=== PATIENT | male | born 1985 | race Caucasian/White ===

== ENCOUNTER → 2025-08-21 | Outpatient (CLI) | payer BC, SELFPAY ==
[2025-08-21 18:20] LABS: AST(SGOT) 396 U/L (<=37); Alanine Aminotransfer ALT/SGPT 370 U/L (<=46); Albumin, Serum 4.2 g/dL (3.5-5.0); Alkaline Phosphatase 121 U/L (40-129); Bilirubin, Direct 0.40 mg/dL (0.00-0.30); Globulin 3.9 g/dL (2.2-4.2)
[2025-08-25 21:07] LABS: HCV Quant. RNA PCR 1630000 IU/mL (.)
== END | disposition home or self-care (01) ==
LOC: MTLAB 15:44
PROVIDERS: PCP Internal Medicine; Referring Provider Internal Medicine Gastroenterology; Visit Provider Internal Medicine Gastroenterology
DX: B19.20 Unspecified viral hepatitis C without hepatic coma (principal)
CPT/HCPCS: 36415; 80076; 87522; 87902

== ENCOUNTER → 2025-08-31 | Outpatient (CLI) | payer BC, SELFPAY ==
--- OUTSIDE RECORDS SUMMARY | 2025-08-31 18:17 | XMS RPT_ITS | CCD ---
Author Organization [facility] Care Team Providers Care Veneer Drier Tailer Name Role Phone PHYSICIAN, NONE Primary Care Physician UnavailAmanda Canseco Unavailable Unavailable JOSHUA ROMERO, MACO Primary Care Physician [phone] JOSHUA ROMERO, MACO Attending Uday LEWIS MD, [facility] Primary Care Unavailshad NAILS MD, DR SANTILLAN Attending Uday LEWIS MD, [facility] Primary Care UnavailNIKOS Govea DO Attending Unavailable JOSHUA ROMERO, [facility] Primary Care Unavailshad LEWIS MD, YOTHOM Attending Unavailshad LEWIS MD, [facility] Primary Care Unavailabl e Unavailable Primary Care Provider UnavailAllyson Shelley Attending Unavailable Allyson Leary Attending Unavailable SHEELA ROMERO, KANWAL A Primary Care Unavailable SHEELA ROMERO, KANWAL Owen Attending Unavailable [facility], [facility] Uday LEWIS MD, YOGAVINA Attending Uday LEWIS MD, [facility] Primary Care Unavailshad LEARY MD, DR ALLYSON Galvez Attending Jhoan LEWIS MD, YOSCA Primary Care Unavailshad LEWIS MD, YOTHOM Attending Uday LEARY MD, DR ALLYSON Galvez Attending Jhoan LEWIS MD, YOSCA Primary Care Unavailabl e KADE PANCHO PETTIT Attending Britt [facility], [facility] Primary Care Unavailshad COKER MD, KANWAL A Primary Care Physician LANLUIS A PETTIT, RHONDA R Attending Karl COKER MD, EDWARD A Primary Care Unavailable SHEELA ROMERO, EDWARD A Primary Care Unavailable RHONDA THORNTON Attending DARBY Alcantara DO Attending [facility] Unavailshad LEWIS MD, THOM Primary Care Unavailshad RAMOS MD, DR CARLOS Faith Attending Jhoan COKER MD, EDWARD A Primary Care Unavailable SHEELA ROMERO, KANWAL A Attending Unavailable RHONDA THORNTON Attending Karl COKER MD, EDWARD A Primary Care Unavailable Allergies Allergy Classification Reported Allergen(s) Allergy Type Date of Onset Reaction(s) Facility (7 sources) turkey allergenic extract Drug Allergy [facility] (7 sources) chicken Food allergy [facility] (4 sources) Losartan; Translations: [losartan] Drug Allergy feeling throat closing [facility] Medications Current Medications Medication Drug Class(es) Dates Sig (Normalized) Sig (Original) albuterol MDI (90 mcg/inh) CFC free inhalation aerosol (4 sources) Start: 03-16-2025 End: 07-14-2025 take 1 puff(s) by inhalation every four hours as needed for wheezing albuterol MDI (90 mcg/inh) CFC free inhalation aerosol 1 puff(s), Inhalation, q4h, PRN as needed for wheezing, # 18 gram(s), 3 Refill(s), Pharmacy: [place] [address], Asthma, 189.2, cm, 03/15/25 15:10:00 EDT, Height, kg, 03/15/25 15:10:00 EDT, Dosing Weight Start Date: 03/16/25 Stop Date: 07/14/25 Status: Ordered Medication Dispense Status: Completed Quantity: 18.0 Unit: g Total Allowed Fills: 4 Fills Dispensed: 0 Indications: Unspecified asthma, uncomplicated; Start: 01-12-2024 End: 02-11-2024 take 1 puff(s) by inhalation every four hours as needed for wheezing albuterol MDI (90 mcg/inh) CFC free inhalation aerosol 1 puff(s), Inhalation, q4h, PRN as needed for wheezing, # 18 gram(s), 0 Refill(s), [facility]: [facility], Asthma, 190, cm, 01/12/24 11:03:00 EDT, Height, kg, 01/12/24 11:03:00 EDT, Dosing Weight Start Date: 01/12/24 Stop Date: 02/11/24 Status: Ordered amLODIPine 5 mg oral tablet (1 source) Dihydropyridine Calcium Channel Nash Start: 01-04-2024 amLODIPine 5 mg oral tablet Dose : 5 mg = 1 tab(s), Oral, qDay, # 30 tab(s), 0 Refill(s) Start Date: 01/04/24 Status: Ordered amoxicillin 875 mg / clavulanate 125 mg oral tablet (1 source) Penicillin-class Antibacterial Start: 09-30-2022 End: 10-07-2022 take 1 tablet by mouth every twelve hours amoxicillin-clavu lanate 875 mg-125 mg oral tablet 1 tab(s), Oral, q12h, X 7 day(s), # 14 tab(s), 0 Refill(s), 10/07/22 11:47:00 EST, Sinusitis Dentalgia, 104 Start Date: 09/30/22 Stop Date: 10/07/22 Status: Ordered buprenorphine 8 mg / naloxone 2 mg sublingual film (5 sources) Partial Opioid Agonist, Opioid Antagonist Start: 04-21-2023 take 1 dose under the tongue once daily buprenorphine-nal oxone 8 mg-2 mg sublingual film Dose = 1 EA, Sublingual, qDay, # 30 EA, 0 Refill(s), 113.6 Start Date: 04/21/23 Status: Ordered Medication Dispense Status: Completed Quantity: 30.0 Unit: EA Total Allowed Fills: 1 Fills Dispensed: 0 cloNIDine hydrochloride 0.1 mg oral tablet (3 sources) Central alpha-2 Adrenergic Agonist Start: 03-06-2025 cloNIDine 0.1 mg oral tablet Dose : 0.1 mg = 1 tab(s), Oral, TID, # 90 tab(s), 5 Refill(s), [facility]acy: [facility], Hypertension, 190.5, cm, 01/26/25 15:07:00 EDT, Height, kg, 01/26/25 15:07:00 EDT, Dosing Weight Start Date: 03/06/25 Status: Ordered Medication Dispense Status: Completed Quantity: 90.0 Unit: tab(s) Total Allowed Fills: 6 Fills Dispensed: 0 Indications: Essential (primary) hypertension; doxycycline hyclate 100 mg oral capsule (1 source) Tetracycline-class Drug Start: 04-06-2023 End: 04-13-2023 doxycycline hyclate 100 mg oral capsule Dose : 100 mg = 1 cap(s), Oral, BID, X 7 day(s), # 14 cap(s), 0 Refill(s), 04/13/23 18:50:00 EDT, 113.6 Start Date: 04/06/23 Stop Date: 04/13/23 Status: Ordered esomeprazole 40 mg delayed release oral capsule (6 sources) Proton Pump Inhibitor Start: 03-15-2025 take 1 capsule by mouth once daily esomeprazole 40 mg oral delayed release capsule Dose : 40 mg = 1 cap(s), Oral, qDayAC, pt. states he takes anywhere between 80- 100mg some days, # 90 cap(s), 3 Refill(s), Pharmacy: [facility] , Heartburn, 189.2, cm, 03/15/25 15:10:00 EDT, Height, kg, 03/15/25 15:10:00 EDT, Dosing Weight Start Date: 03/15/25 Status: Ordered Medication Dispense Status: Completed Quantity: 90.0 Unit: cap(s) Total Allowed Fills: 4 Fills Dispensed: 0 Indications: Heartburn; Start: 03-15-2025 OTC NEXIUM 40m g OTC NEXIUM 40mg, takes 1-2 as needed, 0 Refill(s), 101.3 Start Date: 03/15/25 Status: Ordered Medication Dispense Status: Completed Total Allowed Fills: 1 Fills Dispensed: 0 gabapentin 300 mg oral capsule (2 sources) Anti-epileptic Agent Start: 05-01-2018 gabapentin 300 mg oral capsule Dose : 300 mg = 1 cap(s), Oral, TID, # 270 cap(s), 0 Refill(s) Start Date: 05/01/18 Status: Ordered hydroCHLOROthiazide 25 mg oral tablet (4 sources) Thiazide Diuretic Start: 03-17-2025 hydroCHLOROthiazide 25 mg oral tablet Dose : 25 mg = 1 tab(s), Oral, qDay, # 90 tab(s), 3 Refill(s), Pharmacy: [place] [address], 189.2, cm, 03/15/25 15:10:00 EDT, Height, kg, 03/15/25 15:10:00 EDT, Dosing Weight Start Date: 03/17/25 Status: Ordered Medication Dispense Status: Completed Quantity: 90.0 Unit: tab(s) Total Allowed Fills: 4 Fills Dispensed: 0 Start: 02-26-2024 hydroCHLOROthi azide 25 mg oral tablet Dose : 25 mg = 1 tab(s), Oral, qDay, # 90 tab(s), 3 Refill(s), Pharmacy: [place] [address], 190, cm, 01/26/24 12:59:00 EDT, Height, kg, 01/26/24 12:59:00 EDT, Dosing Weight Start Date: 02/26/24 Status: Ordered meloxicam 7.5 mg oral tablet (1 source) Nonsteroidal Anti-inflammatory Drug Start: 05-05-2023 meloxicam 7.5 mg oral tablet Dose : 7.5 mg = 1 tab(s), Oral, qDay, # 30 tab(s), 0 Refill(s), Pharmacy: [place] [address], Chronic knee pain, 190, cm, 05/05/23 10:29:00 EDT, Height, kg, 05/05/23 10:29:00 EDT, Dosing Weight Start Date: 05/05/23 Status: Ordered nystatin 100 unt/mg topical powder (1 source) Polyene Antifungal Start: 04-06-2023 End: 04-13-2023 nystatin 100,000 units/g topical powder Apply 1 ulisses, Topical, BID, X 7 day(s), # 60 gram(s), 0 Refill(s), Powder, 113.6 Start Date: 04/06/23 Stop Date: 04/13/23 Status: Ordered permethrin 10 mg/ml medicated shampoo (2 sources) Pyrethroid Start: 04-07-2013 permethrin 1% topical lotion See Instructions, # 1 EA, 0 Refill(s) Start Date: 04/07/13 Status: Ordered Zofran ODT 4 mg oral tablet, disintegrating (2 sources) Start: 05-01-2018 Zofran ODT 4 m g oral tablet, disintegrating Dose : 4 mg = 1 tab(s), Oral, q6hr, # 6 tab(s), 0 Refill(s) Start Date: 05/01/18 Status: Ordered Completed/Discontinued Medications Medication Drug Class(es) Dates Sig (Normalized) Sig (Original) dicyclomine hydrochloride 10 mg oral capsule (2 sources) Anticholinergic Start: 05-01-2018 End: 05-08-2018 dicyclomine 10 mg oral capsule Dose : 10 mg = 1 cap(s), Oral, QID, # 28 cap(s), 0 Refill(s) Start Date: 05/01/18 Stop Date: 05/08/18 Status: Ordered Labetalol (1 source) beta-Adrenergic Nash Start: 01-04-2024 End: 01-04-2024 labetalol Start: 01/04/24 3:00:00 PM EDT, Dose = 10 mg, = 2 mL, IV Push, Once, Stop: 01/04/24 3:19:05 PM EDT, 0, 01/04/24 14:58:00 EDT Start Date: 01/04/24 Stop Date: 01/04/24 Status: Completed sucralfate 1000 mg oral tablet (1 source) Aluminum Complex Start: 06-12-2025 Carafate 1 g oral tablet Dose : 1 gram(s) = 1 tab(s), Oral, BID, # 180 tab(s), 2 Refill(s), Pharmacy: [place] [address], Gastritis, 189.2, cm, 06/12/25 15:02:00 EDT, Height, kg, 06/12/25 15:02:00 EDT, Dosing Weight Start Date: 06/12/25 Status: Ordered Medication Dispense Status: Completed Quantity: 180.0 Unit: tab(s) Total Allowed Fills: 3 Fills Dispensed: 0 Indications: Gastritis, unspecified, without bleeding; Problems Active Problems Problem Classification Problem Date Documented Date Episodic/Chronic Abdominal pain (3 sources) Epigastric pain 03-15-2025 Episodic Administrative/social admission (1 source) Administrative reason for encounter; Translations: [Encounter for other administrative examinations] Episodic Alcohol-related disorders (4 sources) Alcoholism 01-12-2024 Chronic Anxiety disorders (1 source) Anxiety disorder; Translations: [Anxiety disorder, unspecified] Onset: 08-18-2024 Chronic Asthma (4 sources) Asthma 01-12-2024 Chronic Cardiac dysrhythmias (1 source) Palpitations; Translations: [Palpitations] Onset: 08-18-2024 Episodic Disorders of teeth and jaw (1 source) Disorder of teeth AND/OR supporting structures; Translations: [Other specified disorders of teeth and supporting structures] Onset: 09-30-2022 Episodic Essential hypertension (5 sources) Essential hypertension; Translations: [Essential (primary) hypertension] Onset: 01-04-2024 Chronic Fluid and electrolyte disorders (1 source) Hypokalemia; Translations: [Hypokalemia] Onset: 08-18-2024 Episodic Hepatitis (1 source) Chronic viral hepatitis C; Translations: [Chronic viral hepatitis C] Onset: 08-03-2024 Chronic Hepatitis (9 sources) Viral hepatitis C; Translations: [Unspecified viral hepatitis C without hepatic coma] Onset: 04-21-2023 04-21-2023 Episodic Malaise and fatigue (1 source) Fatigue; Translations: [Other fatigue] Episodic Nonspecific chest pain (6 sources) Chest pain; Translations: [Chest pain, unspecified] Onset: 01-04-2024 Episodic Osteoarthritis (7 sources) Arthritis; Translations: [Unspecified osteoarthritis, unspecified site] Onset: 04-21-2023 04-21-2023 Chronic Other circulatory disease (2 sources) Elevated blood pressure 05-05-2023 Episodic Other connective tissue disease (3 sources) Plantar fasciitis of right foot 03-15-2025 Episodic Other nutritional; endocrine; and metabolic disorders (1 source) Hypomagnesemia; Translations: [Hypomagnesemia] Onset: 08-18-2024 Chronic Other nutritional; endocrine; and metabolic disorders (1 source) Obesity caused by energy imbalance 01-12-2024 Chronic Other skin disorders (5 sources) Eruption 04-21-2023 Episodic Other upper respiratory disease (3 sources) Breath smells unpleasant 05-29-2025 Episodic Other upper respiratory infections (1 source) Chronic sinusitis; Translations: [Chronic sinusitis, unspecified] Onset: 09-30-2022 Chronic Residual codes; unclassified (5 sources) Chronic back pain 05-05-2023 Episodic Residual codes; unclassified (5 sources) Chronic pain 04-21-2023 Episodic Residual codes; unclassified (1 source) Current drinker; Translations: [Alcohol use, unspecified, uncomplicated] Episodic Spondylosis; intervertebral disc disorders; other back problems (4 sources) Degeneration of lumbar intervertebral disc 06-28-2024 Chronic Substance-related disorders (11 sources) History of drug abuse; Translations: [Tobacco dependence syndrome] 04-21-2023 Chronic Past or Other Problems Problem Classification Problem Date Documented Da te Episodic/Chronic Diabetes mellitus without complication (2 sources) Hyperglycemia, unspecified; Translations: [Hyperglycemia, unspecified] Onset: 04-21-2023 Episodic Other screening for suspected conditions (not mental disorders or infectious disease) (4 sources) Encounter for screening for other suspected endocrine disorder; Translations: [Encounter for screening for lipoid disorders] Onset: 04-21-2023 Episodic Results Test Name Value Interpretation Reference Range Facility US ELASTOGRAPHY LIVER ONLYon 06-23-2025 US ELASTOGRAPHY LIVER ONLY ORIGINAL EXAMINATION: Hepatic elastography TECHNIQUE: 2D Shear Wave Elastography of the liver was performed in the right lobe. COMPARISON: 06/16/2025 FINDINGS: Diffusely increased hepatic echogenicity with decreased through transmission. No ascites. 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 Shear Wave Liver Elastography-liver fibrosis staging Median Velocity: Recommendation: 1.35-1.66 m/s (5.48 kPa - 8.29 kPa) Normal to mild risk of clinically significant liver fibrosis : METAVIR Stage F1 1.66-1.77 m/s (8.29 kPa - 9.40 kPa) [id number] risk of clinically significant liver fibrosis. (METAVIR Stage F2) 1.77-1.99 m/s (9.40 kPa - 11.9 kPa) Moderate to severe risk of clinically significant liver fibrosis (METAVIR Stage F3) > 1.99 m/s (> 11.9 kPa) Advanced Fibrosis and/or Cirrhosis: (METAVIR Stage F4) Interpreted by: Manuela Shea Preliminary Report By: Manuela Shea Electronically signed By Manuela Shea Dictated Date: 06/23/2025 4:53:53 PM Prelim Date: 06/23/2025 4:54:45 PM Sign Date: 06/23/2025 4:54:45 PM Ordering Provider: KANWAL COKER RP Normal [facility] US ABDOMEN COMPLETEon 2024 US ABDOMEN COMPLETE ORIGINAL EXAMINATION: COMPLETE ABDOMINAL ULTRASOUND06/16/2025 6:42 pm ULTRASOUND ABDOMEN COMPLETE COMPARISON: Ultrasound 03/23/2020 TECHNIQUE: This report is based on interpretation of permanently recorded ultrasound images. HISTORY: ORDERING SYSTEM PROVIDED HISTORY: Reason for Exam: ELEVATED LFT, TRANSAMINITIS, HISTORY OF HEPATITIS C, FINDINGS: Liver: . The visualized liver is mildly heterogeneous and coarsened with increased echogenicity. No suspicious focal lesion is seen and there is no obvious nodularity of the visualized liver margins. There is antegrade blood flow in the main portal vein. Moderate masking of the portal triads also. Bile ducts: There is no intrahepatic biliary duct dilatation. The common duct 6 mm at the miky hepatis. Gallbladder: The gallbladder is distended satisfactorily without calculi, wall thickening, pericholecystic edema or tenderness. Pancreas: The visualized pancreas shows no focal lesion or mass but some portions are obscured by bowel gas artifacts. . No free fluid is seen in the abdomen. Spleen: The spleen is plump and may be mildly enlarged 12.1 cm in maximum dimension without any focal lesions.. Kidneys: Limited survey images of the kidneys show normal cortical thickness and echogenicity and no pelvocaliectasis. . Visualized aorta: Normal. Some portions are obscured by artifacts. Visualized IVC: Normal IMPRESSION: Hepatic steatosis or other diffuse hepatocellular disease. Plump spleen, borderline enlargement not excluded. Interpreted by: Isrrael Watts MD Preliminary Report By: Isrrael Watts MD Electronically signed By Isrrael Watts MD Dictated Date: 06/19/2025 12:00:10 PM Prelim Date: 06/19/2025 12:02:11 PM Sign Date: 06/19/2025 12:02:11 PM Ordering Provider: RHONDA MONTENEGRO RP [facility] .GFRon 06-10-2025 Estimated Glomerular Filtration Rate 117 ml/min/1.73sqm [facility] Comment on above: Result Comment: Stages of Chronic Kidney Disease (CKD) Stage Description eGFR(ml/min/1.73 sq.m.) CKD 1 Normal kidney function or >=90 normal kindney function with possible kidney damage (ex. Proteinuria) CKD 2 Kidney damage with mild loss 60-89 of kidney function CKD 3a Mild to moderate loss of kidney 45-59 function CKD 3b Moderate to severe loss of 30-44 of kindey function CKD 4 Severe loss of kidney function 15-29 CKD 5 Kidney failure <15 Note: (go live 2024) the eGFR calculation was updated to the 2020 CKD-EPI creatinine equation without a race factor to calculate the eGFR results. Performed By: #### G , CMP #### [address] [facility] 06-10-2025 Albumin Level 3.9 G/dL Normal 3.2-4.8 [facility] Comment on above: Performed By: #### G , CMP #### [place] [id number] Albumin/Globulin [Mass ratio] 1.1 {ratio} Normal 0.9-1.6 [facility] Comment on above: Performed By: #### G , CMP #### [address] [address] ALP [Catalytic activity/Vol] 134 U/L High 38-126 [facility] Comment on above: Performed By: #### G , CMP #### [address] [address] ALT [Catalytic activity/Vol] 473 U/L High 12-55 [facility] Comment on above: Performed By: #### G , CMP #### [address] [address] AST [Catalytic activity/Vol] 342 U/L High 8-34 [facility] Comment on above: Performed By: #### G , CMP #### [address] [address] Bili Total 0.30 mg/dL Normal 0.20-1.20 [facility] Comment on above: Result Comment: Use of this assay is not recommended for patients undergoing treatment with eltrombopag due to the potential for falsely elevated results. Performed By: #### G FR, CMP #### [place] [id number] BUN/Creatinine Ratio 11.1 ratio Normal 10.0-22.0 [facility] Comment on above: Performed By: #### G FR, CMP #### [place] [id number] Calcium [Mass/Vol] 9.4 mg/dL Normal 8.7-10.4 [facility] Comment on above: Performed By: #### G FR, CMP #### [place] [id number] Chloride [Moles/Vol] 98 mmol/L Normal 98-110 [facility] Comment on above: Performed By: #### G FR, CMP #### [place] [id number] CO2 [Moles/Vol] 27 mmol/L Normal 22-32 [facility] Comment on above: Performed By: #### G FR, CMP #### [place] [id number] Creatinine [Mass/Vol] 0.72 mg/dL Normal 0.60-1.40 [facility] Comment on above: Result Comment: Test ing performed on MatchMate.Me analyzer using enzymatic creatinine methodology. Performed By: #### G FR, CMP #### [place] [id number] Electrolyte Balance 13.0 mEq/L Normal 4.0-15.0 [facility] Comment on above: Performed By: #### G FR, CMP #### [address] [address] Globulin 3.7 G/dL Normal 2.5-4.2 [facility] Comment on above: Performed By: #### G FR, CMP #### [place] [id number] Glucose [Mass/Vol] 177 mg/dL High 70-110 [facility] Comment on above: Performed By: #### G FR, CMP #### [facility] [address] [place], [place] [address] Potassium [Moles/Vol] 4.2 mmol/L Normal 3.5-5.0 [facility] Comment on above: Performed By: #### G , CMP #### [facility] [address] [place] [address] Sodium [Moles/Vol] 138 mmol/L Normal 136-145 [facility] Comment on above: Performed By: #### Manisha MORENO, CMP #### [facility] [address] [place] [address] Total Protein 7.6 G/dL Normal 5.7-8.2 [facility] Comment on above: Performed By: #### Manisha MORENO, CMP #### [facility] [address] [place] [address] Urea nitrogen [Mass/Vol] 8.0 mg/dL Normal 8.0-22.0 [facility] Comment on above: Performed By: #### Manisha MORENO, CMP #### [facility] [address] [place] [address] LABORATORYOrdered By: SYSTEM SYSTEM on 06-10-2025 Albumin BCP dye [Mass/Vol] 3.9 G/dL Normal 3.2 - 4.8 G/dL ADM SS Albumin/Globulin [Mass ratio] 1.1 {ratio} Normal 0.9 - 1.6 ratio ADM SS ALP [Catalytic activity/Vol] 134 U/L High 38 - 126 U/L ADM SS ALT No additional P-5'-P [Catalytic activity/Vol] 473 U/L High 12 - 55 U/L ADM SS AST [Catalytic activity/Vol] 342 U/L High 8 - 34 U/L ADM SS Bilirubin [Mass/Vol] 0.30 mg/dL Normal 0.20 - 1.20 mg/dL ADM SS Comment on above: Interpretive Data: U se of this assay is not recommended for patients undergoing treatment with eltrombopag due to the potential for falsely elevated results. Calcium [Mass/Vol] 9.4 mg/dL Normal 8.7 - 10. 4 mg/dL ADM SS Chloride [Moles/Vol] 98 mmol/L Normal 98 - 11 0 mEq/L ADM SS CO2 [Moles/Vol] 27 mmol/L Normal 22 - 32 mEq/L ADM SS Creatinine [Mass/Vol] 0.72 mg/dL Normal 0.60 - 1.40 mg/dL AH ADM SS Comment on above: Interpretive Data: T esting performed on MatchMate[employer]Me analyzer using enzymatic creatinine methodology. Electrolyte Balance 13.0 mEq/L Normal 4.0 - 15 .0 mEq/L ADM SS Estimated Glomerular Filtration Rate 117 ml/min/1.73sqm Invalid Interpretation Code ADM SS Comment on above: Interpretive Data: Stages of Chronic Kidney Disease (CKD) Stage Description eGFR(ml/min/1.73 sq.m.) CKD 1 Normal kidney function or >=90 normal kindney function with possible kidney damage (ex. Proteinuria) CKD 2 Kidney damage with mild loss 60-89 of kidney function CKD 3a Mild to moderate loss of kidney 45-59 function CKD 3b Moderate to severe loss of 30-44 of kindey function CKD 4 Severe loss of kidney function 15-29 CKD 5 Kidney failure <15 Note: (go live 2024) the eGFR calculation was updated to the 2020 CKD-EPI creatinine equation without a race factor to calculate the eGFR results. Globulin 3.7 G/dL Normal 2.5 - 4.2 G/dL ADM SS Glucose [Mass/Vol] 177 mg/dL High 70 - 110 mg/dL ADM SS Potassium [Moles/Vol] 4.2 mmol/L Normal 3.5 - 5.0 mEq/L ADM SS Protein [Mass/Vol] 7.6 G/dL Normal 5.7 - 8.2 G/dL ADM SS Sodium [Moles/Vol] 138 mmol/L Normal 136 - 145 mEq/L ADM SS Urea nitrogen [Mass/Vol] 8.0 mg/dL Normal 8.0 - 22.0 mg/dL ADM SS Urea nitrogen/Creatinine [Mass ratio] 11.1 ratio Normal 10.0 - 22.0 ratio ADM SS .Auto Diffon 05-30-2025 Basophil, Absolute 0.0 10 3/mcL Normal 0.0-0.3 [facility] Comment on above: Performed By: #### A DIFF, CMP, VIDH, MG, A1C, CBC, FES, FE, TSH, ANEU, PRO, FERR, GFR #### [address] [address] #### B12 #### [address] [address] Basophils/100 WBC (Bld) 0.7 % Normal 0.0-2.5 [facility] Comment on above: Performed By: #### A DIFF, CMP, VIDH, MG, A1C, CBC, FES, FE, TSH, ANEU, PRO, FERR, GFR #### [address] [address] #### B12 #### [address] [address] Eosinophil, Absolute 0.1 10 3/mcL Normal 0.0-0.7 [facility] Comment on above: Performed By: #### A DIFF, CMP, VIDH, MG, A1C, CBC, FES, FE, TSH, ANEU, PRO, FERR, GFR #### [place] [address] #### B12 #### [address] [address] Eosinophils/100 WBC (Bld) 2.5 % Normal 0.0-6.0 [facility] Comment on above: Performed By: #### A DIFF, CMP, VIDH, MG, A1C, CBC, FES, FE, TSH, ANEU, PRO, FERR, GFR #### [address] [address] #### B12 #### [address] [address] Lymphocyte, Absolute 1.3 10 3/mcL Normal 0.9-4.3 [facility] Comment on above: Performed By: #### A DIFF, CMP, VIDH, MG, A1C, CBC, FES, FE, TSH, ANEU, PRO, FERR, GFR #### [place] [address] #### B12 #### [address] [address] Lymphocytes/100 WBC (Bld) 25.2 % Normal 20.0-40.0 [facility] Comment on above: Performed By: #### A DIFF, CMP, VIDH, MG, A1C, CBC, FES, FE, TSH, ANEU, PRO, FERR, GFR #### [address] [address] #### B12 #### [address] [address] Monocyte, Absolute 0.4 10 3/mcL Normal 0.1-1.4 [facility] Comment on above: Performed By: #### A DIFF, CMP, VIDH, MG, A1C, CBC, FES, FE, TSH, ANEU, PRO, FERR, GFR #### [address] [address] #### B12 #### [address] [address] Monocytes/100 WBC (Bld) 8.0 % Normal 2.0-13.0 [facility] Comment on above: Performed By: #### A DIFF, CMP, VIDH, MG, A1C, CBC, FES, FE, TSH, ANEU, PRO, FERR, GFR #### [address] [address] #### B12 #### [address] [address] Neutrophils/100 WBC (Bld) 63.6 % Normal 50.0-75.0 [facility] Comment on above: Performed By: #### A DIFF, CMP, VIDH, MG, A1C, CBC, FES, FE, TSH, ANEU, PRO, FERR, GFR #### [address] [address] #### B12 #### [address] [address] .GFRon 05-30-2025 Estimated Glomerular Filtration Rate 116 ml/min/1.73sqm Normal [facility] Comment on above: Result Comment: Stages of Chronic Kidney Disease (CKD) Stage Description eGFR(ml/min/1.73 sq.m.) CKD 1 Normal kidney function or >=90 normal kindney function with possible kidney damage (ex. Proteinuria) CKD 2 Kidney damage with mild loss 60-89 of kidney function CKD 3a Mild to moderate loss of kidney 45-59 function CKD 3b Moderate to severe loss of 30-44 of kindey function CKD 4 Severe loss of kidney function 15-29 CKD 5 Kidney failure <15 Note: (go live 2024) the eGFR calculation was updated to the 2020 CKD-EPI creatinine equation without a race factor to calculate the eGFR results. Performed By: #### A DIFF, CMP, VIDH, MG, A1C, CBC, FES, FE, TSH, ANEU, PRO, FERR, GFR ####[address] [address]#### B12 ####[address] [address] .NEUABSon 05-30-2025 Neutrophil, Absolute 3.3 10 3/mcL Normal 2.3-8.1 [facility] Comment on above: Performed By: #### A DIFF, CMP, VIDH, MG, A1C, CBC, FES, FE, TSH, ANEU, PRO, FERR, GFR ####[address] [address]#### B12 ####[address] [address] A1Con 05-30-2025 Glucose [Mass/Vol] 114 mg/dL Normal [facility] Comment on above: Result Comment: Alyssa mated Average Glucose calculated by equation ((28.7xA1C)-46.7) Estimated average glucose (eAG) is a calculated value from Hemoglobin A1C and is patient registration representative of the average blood glucose level in the last 2-3 month period. Normal range: less than 114 mg/dL Performed By: #### A DIFF, CMP, VIDH, MG, A1C, CBC, FES, FE, TSH, ANEU, PRO, FERR, GFR ####[address] [address]#### B12 ####[address] [address] HbA1c (Bld) [Mass fraction] 5.6 % Normal 4.3-6.4 [facility] Comment on above: Performed By: #### A DIFF, CMP, VIDH, MG, A1C, CBC, FES, FE, TSH, ANEU, PRO, FERR, GFR ####[address] [address]#### B12 ####[address] [address] B12on 05-30-2025 Cobalamin (Vitamin B12) [Mass/Vol] 863 pg/mL Normal 211-911 [facility] Comment on above: Performed By: #### A DIFF, CMP, VIDH, MG, A1C, CBC, FES, FE, TSH, ANEU, PRO, FERR, GFR ####[address] [address]#### B12 ####[address] [address] CBCon 05-30-2025 Erythrocyte distribution width (RBC) [Ratio] 12.0 % Normal 11.5-15.5 [facility] Comment on above: Performed By: #### A DIFF, CMP, VIDH, MG, A1C, CBC, FES, FE, TSH, ANEU, PRO, FERR, GFR #### [place] [address] #### B12 #### [address] [address] Hematocrit (Bld) [Volume fraction] 46.4 % Normal 40.0-52.0 [facility] Comment on above: Performed By: #### A DIFF, CMP, VIDH, MG, A1C, CBC, FES, FE, TSH, ANEU, PRO, FERR, GFR #### [place] [address] #### B12 #### [address] [address] Hgb 16.3 G/dL Normal 13.0-17.5 [facility] Comment on above: Performed By: #### A DIFF, CMP, VIDH, MG, A1C, CBC, FES, FE, TSH, ANEU, PRO, FERR, GFR #### [place] [address] #### B12 #### [address] [address] MCH (RBC) [Entitic mass] 33.6 pg High 27.0-33.0 [facility] Comment on above: Performed By: #### A DIFF, CMP, VIDH, MG, A1C, CBC, FES, FE, TSH, ANEU, PRO, FERR, GFR #### [address] [address] #### B12 #### [place] [address] MCHC 35.2 G/dL Normal 32.0-36.0 [facility] Comment on above: Performed By: #### A DIFF, CMP, VIDH, MG, A1C, CBC, FES, FE, TSH, ANEU, PRO, FERR, GFR #### [place] [address] #### B12 #### [place] [address] MCV (RBC) [Entitic vol] 95.3 fL Normal 81.0-100.0 [facility] Comment on above: Performed By: #### A DIFF, CMP, VIDH, MG, A1C, CBC, FES, FE, TSH, ANEU, PRO, FERR, GFR #### [place] [address] #### B12 #### [place] [address] Platelet 126 10 3/mcL Low 150-450 [facility] Comment on above: Performed By: #### A DIFF, CMP, VIDH, MG, A1C, CBC, FES, FE, TSH, ANEU, PRO, FERR, GFR #### [place] [address] #### B12 #### [place] [address] Platelet mean volume (Bld) [Entitic vol] 8.7 fL Normal 6.4-10.5 [facility] Comment on above: Performed By: #### A DIFF, CMP, VIDH, MG, A1C, CBC, FES, FE, TSH, ANEU, PRO, FERR, GFR #### [place] [address] #### B12 #### [place] [address] RBC 4.86 10 6/mcL Normal 4.50-6.00 [facility] Comment on above: Performed By: #### A DIFF, CMP, VIDH, MG, A1C, CBC, FES, FE, TSH, ANEU, PRO, FERR, GFR #### [place] [address] #### B12 #### [place] [address] WBC 5.2 10 3/mcL Normal 4.5-10.8 [facility] Comment on above: Performed By: #### A DIFF, CMP, VIDH, MG, A1C, CBC, FES, FE, TSH, ANEU, PRO, FERR, GFR #### [place] [address] #### B12 #### [place] [address] CMPon 05-30-2025 Albumin Level 3.8 G/dL Normal 3.5-5.0 [facility] Comment on above: Performed By: #### A DIFF, CMP, VIDH, MG, A1C, CBC, FES, FE, TSH, ANEU, PRO, FERR, GFR ####[place] [address]#### B12 ####[place] [address] Albumin/Globulin [Mass ratio] 0.9 {ratio} Low 1.1-2.5 [facility] Comment on above: Performed By: #### A DIFF, CMP, VIDH, MG, A1C, CBC, FES, FE, TSH, ANEU, PRO, FERR, GFR ####[place] [address]#### B12 ####[place] [address] ALP [Catalytic activity/Vol] 150 U/L High 40-135 [facility] Comment on above: Performed By: #### A DIFF, CMP, VIDH, MG, A1C, CBC, FES, FE, TSH, ANEU, PRO, FERR, GFR ####[place] [address]#### B12 ####[address] [address] ALT [Catalytic activity/Vol] 396 U/L High 16-63 [facility] Comment on above: Performed By: #### A DIFF, CMP, VIDH, MG, A1C, CBC, FES, FE, TSH, ANEU, PRO, FERR, GFR ####[place] [address]#### B12 ####[place] [address] AST [Catalytic activity/Vol] 257 U/L High 10-40 [facility] Comment on above: Performed By: #### A DIFF, CMP, VIDH, MG, A1C, CBC, FES, FE, TSH, ANEU, PRO, FERR, GFR ####[place] [address]#### B12 ####[place] [address] Bili Total 0.7 mg/dL Normal 0.2-1.0 [facility] Comment on above: Result Comment: Use of this assay is not recommended for patients undergoing treatment with eltrombopag due to the potential for falsely elevated results. Performed By: #### A DIFF, CMP, VIDH, MG, A1C, CBC, FES, FE, TSH, ANEU, PRO, FERR, GFR ####[place] [address]#### B12 ####[place] [address] BUN/Creatinine Ratio 18 ratio Normal 7-27 [facility] Comment on above: Performed By: #### A DIFF, CMP, VIDH, MG, A1C, CBC, FES, FE, TSH, ANEU, PRO, FERR, GFR ####[place] [address]#### B12 ####[place] [address] Calcium [Mass/Vol] 8.9 mg/dL Normal 8.4-10.2 [facility] Comment on above: Performed By: #### A DIFF, CMP, VIDH, MG, A1C, CBC, FES, FE, TSH, ANEU, PRO, FERR, GFR ####[place] [address]#### B12 ####[place] [address] Chloride [Moles/Vol] 100 mmol/L Normal 98-107 [facility] Comment on above: Performed By: #### A DIFF, CMP, VIDH, MG, A1C, CBC, FES, FE, TSH, ANEU, PRO, FERR, GFR ####[place] [address]#### B12 ####[place] [address] CO2 [Moles/Vol] 34 mmol/L High 22-29 [facility] Comment on above: Performed By: #### A DIFF, CMP, VIDH, MG, A1C, CBC, FES, FE, TSH, ANEU, PRO, FERR, GFR ####[place] [address]#### B12 ####[place] [address] Creatinine [Mass/Vol] 0.74 mg/dL Normal 0.67-1.17 [facility] Comment on above: Performed By: #### A DIFF, CMP, VIDH, MG, A1C, CBC, FES, FE, TSH, ANEU, PRO, FERR, GFR ####[place] [address]#### B12 ####[place] [address] Electrolyte Balance 6.0 mEq/L Normal 4.0-15.0 [facility] Comment on above: Performed By: #### A DIFF, CMP, VIDH, MG, A1C, CBC, FES, FE, TSH, ANEU, PRO, FERR, GFR ####[place] [address]#### B12 ####[address] [address] Globulin 4.2 G/dL Normal 2.7-4.4 [facility] Comment on above: Performed By: #### A DIFF, CMP, VIDH, MG, A1C, CBC, FES, FE, TSH, ANEU, PRO, FERR, GFR ####[place] [address]#### B12 ####[place] [address] Glucose [Mass/Vol] 141 mg/dL High 70-105 [facility] Comment on above: Performed By: #### A DIFF, CMP, VIDH, MG, A1C, CBC, FES, FE, TSH, ANEU, PRO, FERR, GFR ####[place] [address]#### B12 ####[place] [address] Potassium [Moles/Vol] 4.0 mmol/L Normal 3.5-5.1 [facility] Comment on above: Performed By: #### A DIFF, CMP, VIDH, MG, A1C, CBC, FES, FE, TSH, ANEU, PRO, FERR, GFR ####[place] [address]#### B12 ####[place] [address] Sodium [Moles/Vol] 140 mmol/L Normal 136-145 [facility] Comment on above: Performed By: #### A DIFF, CMP, VIDH, MG, A1C, CBC, FES, FE, TSH, ANEU, PRO, FERR, GFR ####[place] [address]#### B12 ####[place] [address] Total Protein 8.0 G/dL Normal 6.4-8.2 [facility] Comment on above: Performed By: #### A DIFF, CMP, VIDH, MG, A1C, CBC, FES, FE, TSH, ANEU, PRO, FERR, GFR ####[place] [address]#### B12 ####[place] [address] Urea nitrogen [Mass/Vol] 13 mg/dL Normal 7-18 [facility] Comment on above: Performed By: #### A DIFF, CMP, VIDH, MG, A1C, CBC, FES, FE, TSH, ANEU, PRO, FERR, GFR ####[place] [address]#### B12 ####[address] 05-30-2025 Iron [Mass/Vol] 138 ug/dL Normal 65-175 [facility] Comment on above: Performed By: #### A DIFF, CMP, VIDH, MG, A1C, CBC, FES, FE, TSH, ANEU, PRO, FERR, GFR ####[place] [address]#### B12 ####[place] [address] Beth 05-30-2025 Ferritin [Mass/Vol] 2048.0 ng/mL High 26.0-388.0 [facility] Comment on above: Performed By: #### A DIFF, CMP, VIDH, MG, A1C, CBC, FES, FE, TSH, ANEU, PRO, FERR, GFR ####[place] [address]#### B12 ####[address] 05-30-2025 Iron Sat 42 % Normal [facility] Comment on above: Performed By: #### A DIFF, CMP, VIDH, MG, A1C, CBC, FES, FE, TSH, ANEU, PRO, FERR, GFR ####[place] [address]#### B12 ####[place] [address] [place] [address] TIBC 328 mcg/dL Normal 250-450 [facility] Comment on above: Performed By: #### A DIFF, CMP, VIDH, MG, A1C, CBC, FES, FE, TSH, ANEU, PRO, FERR, GFR ####[facility] [place], [place] [address]#### B12 ####[address] [address] LABORATORYOrdered By: Albert mcgarry on 05-30-2025 Appearance (U) Clear (05/30/25 4:48 PM) Normal Clear AO Auto Urine SS Bilirubin Ql (U) Negative (05/30/25 4:48 PM) Normal Negative AO Auto Urine SS Color (U) Yellow (05/30/25 4:48 PM) Normal AO Auto Urine SS Glucose Test strip (U) [Mass/Vol] Negative Normal Negative AO Auto Urine SS Hemoglobin Auto test strip (U) [Mass/Vol] Negative (05/30/25 4:48 PM) Normal Negative AO Auto Urine SS Ketones Ql (U) Negative Normal Negative AO Auto Ur ine SS UA Leuk Est Negative (05/30/25 4:48 PM) Normal Negative AO Auto Urine SS UA Nitrite Negative (05/30/25 4:48 PM) Normal Negative AO Auto Urine SS UA pH 8.5 *ABN* (05/30/25 4:48 PM) Invalid Interpretation Code 5.0 - 8.0 AO Auto Urine SS UA Protein Negative Normal Negative AO Auto Urine SS UA RBC 0-2 /HPF Normal 0-2 AO Auto Urine SS UA Spec Grav 1.020 (05/30/25 4:48 PM) Normal 1.015-1.025 AO Auto Urine SS UA Specimen Type Clean Catch (05/30/25 4:48 PM) Normal AO Auto Urine SS UA Squam Epithelial 0-2 /HPF Normal 0-20 AO Au to Urine SS UA Urobilinogen 2.0 E.U./dL Invalid Interpretation Code 0.2-1.0 AO Auto Urine SS WBC LM.HPF (Urine sed) [#/Area] 0-2 /HPF Normal 0-5 AO Auto Urine SS LABORATORYOrdered By: SYSTEM SYSTEM on 05-30-2025 25-hydroxyvitamin D3 [Mass/Vol] 21.2 ng/mL Invalid Interpretation Code AO ADM SS Comment on above: Interpretive Data: I nterpretive Values Based on Total 25(OH) Vitamin D: Deficient <20 ng/mL Insufficient 20 - <30 ng/mL Sufficient 30-100 ng/mL Albumin BCP dye [Mass/Vol] 3.8 G/dL Normal 3.5 - 5.0 G/dL AO ADM SS Albumin/Globulin [Mass ratio] 0.9 {ratio} Low 1.1 - 2.5 ratio AO ADM SS ALP [Catalytic activity/Vol] 150 U/L High 40 - 135 U/L AO ADM SS ALT With P-5'-P [Catalytic activity/Vol] 396 U/L High 16 - 63 U/L AO ADM SS AST With P-5'-P [Catalytic activity/Vol] 257 U/L High 10 - 40 U/L AO ADM SS Basophils (Bld) [#/Vol] 0.0 103/mcL Normal 0.0 - 0.3 10^3/mcL AO Workflow SS Basophils/100 WBC (Bld) 0.7 % Normal 0.0 - 2.5 % AO Workflow SS Bilirubin [Mass/Vol] 0.7 mg/dL Normal 0.2 - 1 .0 mg/dL AO ADM SS Comment on above: Interpretive Data: U se of this assay is not recommended for patients undergoing treatment with eltrombopag due to the potential for falsely elevated results. Calcium [Mass/Vol] 8.9 mg/dL Normal 8.4 - 10. 2 mg/dL AO ADM SS Chloride [Moles/Vol] 100 mmol/L Normal 98 - 10 7 mmol/L AO ADM SS CO2 [Moles/Vol] 34 mmol/L High 22 - 29 mmol/L AO ADM SS Cobalamin (Vitamin B12) [Mass/Vol] 863 pg/mL Normal 211 - 911 pg/mL AH ADM SS Creatinine [Mass/Vol] 0.74 mg/dL Normal 0.67 - 1.17 mg/dL AO ADM SS Electrolyte Balance 6.0 mEq/L Normal 4.0 - 15 .0 mEq/L AO ADM SS Eosinophil, Absolute 0.1 103/mcL Normal 0.0 - 0 .7 10^3/mcL AO Workflow SS Eosinophils/100 WBC (Bld) 2.5 % Normal 0.0 - 6.0 % AO Workflow SS Erythrocyte distribution width (RBC) [Ratio] 12.0 % Normal 11.5 - 15.5 % AO Workflow SS Estimated Glomerular Filtration Rate 116 ml/min/1.73sqm Invalid Interpretation Code AO Chemistry S Comment on above: Interpretive Data: Stages of Chronic Kidney Disease (CKD) Stage Description eGFR(ml/min/1.73 sq.m.) CKD 1 Normal kidney function or >=90 normal kindney function with possible kidney damage (ex. Proteinuria) CKD 2 Kidney damage with mild loss 60-89 of kidney function CKD 3a Mild to moderate loss of kidney 45-59 function CKD 3b Moderate to severe loss of 30-44 of kindey function CKD 4 Severe loss of kidney function 15-29 CKD 5 Kidney failure <15 Note: (go live 2024) the eGFR calculation was updated to the 2020 CKD-EPI creatinine equation without a race factor to calculate the eGFR results. Ferritin [Mass/Vol] 2048.0 ng/mL High 26.0 - 3 88.0 ng/mL AO ADM SS Globulin 4.2 G/dL Normal 2.7 - 4.4 G/dL AO ADM SS Glucose [Mass/Vol] 114 mg/dL Invalid Interpretation Code AO Chemistry S Comment on above: Interpretive Data: E stimated average glucose (eAG) is a calculated value from Hemoglobin A1C and is patient registration representative of the average blood glucose level in the last 2-3 month period. Normal range: less than 114 mg/dL Glucose [Mass/Vol] 141 mg/dL High 70 - 105 mg/dL AO ADM SS HbA1c (Bld) [Mass fraction] 5.6 % Normal 4.3 - 6.4 % AO ADM SS Hematocrit (Bld) [Volume fraction] 46.4 % Normal 40.0 - 52.0 % AO Workflow SS Hemoglobin (Bld) [Mass/Vol] 16.3 G/dL Normal 13.0 - 17.5 G/dL AO Workflow SS INR Coag (PPP) [Relative time] 1.1 {INR} Invalid Interpretation Code AO HemoHub SS Comment on above: Interpretive Data: Manpreet carrillo [employer] (CHEST, 1992, 102:312S-25S) recommended therapeutic range for oral anticoagulant therapy is: LOW RISK: Prophylaxis of venous thrombosis INR: 2.0-3.0 Treatment of pulmonary embolism 2.0-3.0 Prevention of systemic embolism 2.0-3.0 HIGH RISK: Mechanical prosthetic valves 2.5-3.5 Iron binding capacity [Mass/Vol] 328 mcg/dL Normal 250 - 450 mcg/dL AO ADM SS Iron Sat 42 % Invalid Interpretation Code AO ADM SS Lymphocytes (Bld) [#/Vol] 1.3 103/mcL Normal 0.9 - 4.3 10^3/mcL AO Workflow SS Lymphocytes/100 WBC (Bld) 25.2 % Normal 20.0 - 40.0 % AO Workflow SS Magnesium [Mass/Vol] 1.8 mg/dL Normal 1.8 - 2 .4 mg/dL AO ADM SS MCH (RBC) [Entitic mass] 33.6 pg High 27.0 - 33.0 pg AO Workflow SS MCHC 35.2 G/dL Normal 32.0 - 36.0 G/dL AO Workflow SS MCV (RBC) [Entitic vol] 95.3 fL Normal 81.0 - 100.0 fL AO Workflow SS Monocytes (Bld) [#/Vol] 0.4 103/mcL Normal 0.1 - 1.4 10^3/mcL AO Workflow SS Monocytes/100 WBC (Bld) 8.0 % Normal 2.0 - 13.0 % AO Workflow SS Neutrophils (Bld) [#/Vol] 3.3 103/mcL Normal 2.3 - 8.1 10^3/mcL AO Workflow SS Neutrophils/100 WBC (Bld) 63.6 % Normal 50.0 - 75.0 % AO Workflow SS Platelet mean volume (Bld) [Entitic vol] 8.7 fL Normal 6.4 - 10.5 fL AO Workflow SS Platelets (Bld) [#/Vol] 126 103/mcL Low 150 - 450 10^3/mcL AO Workflow SS Potassium [Moles/Vol] 4.0 mmol/L Normal 3.5 - 5.1 mmol/L AO ADM SS Protein [Mass/Vol] 8.0 G/dL Normal 6.4 - 8.2 G/dL AO ADM SS PT Coag (PPP) [Time] 12.7 s Normal 9.0 - 1 4.4 seconds AO HemoHub SS RBC (Bld) [#/Vol] 4.86 106/mcL Normal 4.50 - 6.0 0 10^6/mcL AO Workflow SS Sodium [Moles/Vol] 140 mmol/L Normal 136 - 145 mmol/L AO ADM SS TSH Qn 1.66 m[IU]/L Normal 0.36 - 3.74 mcIU/mL AO ADM SS Urea nitrogen [Mass/Vol] 13 mg/dL Normal 7 - 18 mg/dL AO ADM SS Urea nitrogen/Creatinine [Mass ratio] 18 ratio Normal 7 - 27 ratio AO ADM SS WBC (Bld) [#/Vol] 5.2 103/mcL Normal 4.5 - 10.8 10^3/mcL AO Workflow SS Laboratory - Chemistry and C hemistry - challengeOrdered By: SYSTEM SYSTEM on 05-30-2025 Iron [Mass/Vol] 138 ug/dL Normal 65 - 175 mcg/dL AO ADM SS MGon 05-30-2025 Magnesium [Mass/Vol] 1.8 mg/dL Normal 1.8-2.4 [facility] Comment on above: Performed By: #### A DIFF, CMP, VIDH, MG, A1C, CBC, FES, FE, TSH, ANEU, PRO, FERR, GFR ####[place] [id number] [place] [id number]#### B12 ####[place] [address] PROon 05-30-2025 PT Coag (PPP) [Time] 12.7 s Normal 9.0-14.4 [facility] Comment on above: Performed By: #### A DIFF, CMP, VIDH, MG, A1C, CBC, FES, FE, TSH, ANEU, PRO, FERR, GFR ####[place] [id number] [place], [place] [address]#### B12 ####[place] [address] PT International Ratio 1.1 Normal [facility] Comment on above: Result Comment: [employer] (CHEST, 1992, 102:312S-25S) recommended therapeutic range for oral anticoagulant therapy is: LOW RISK: Prophylaxis of venous thrombosis INR: 2.0-3.0 Treatment of pulmonary embolism 2.0-3.0 Prevention of systemic embolism 2.0-3.0 HIGH RISK: Mechanical prosthetic valves 2.5-3.5 Performed By: #### A DIFF, CMP, VIDH, MG, A1C, CBC, FES, FE, TSH, ANEU, PRO, FERR, GFR ####[place] [address]#### B12 ####[place] [address] TSHon 05-30-2025 TSH Qn 1.66 m[IU]/L Normal 0.36-3.74 [facility] Comment on above: Performed By: #### A DIFF, CMP, VIDH, MG, A1C, CBC, FES, FE, TSH, ANEU, PRO, FERR, GFR ####[place] [address]#### B12 ####[place] [address] UAon 05-30-2025 Color (U) Yellow Normal [facility] Comment on above: Performed By: #### U A, UAMIC #### [place] [address] Glucose (U) [Mass/Vol] Negative Normal Negative [facility] Comment on above: Performed By: #### U A, UAMIC #### [place] [address] Ketones Ql (U) Negative Normal Negative [facility] Comment on above: Performed By: #### U A, UAMIC #### [place] [address] UA Appear Clear Normal Clear [facility] Comment on above: Performed By: #### U A, UAMIC #### [place] [address] UA Blood Negative Normal Negative [facility] Comment on above: Performed By: #### U A, UAMIC #### [place] [address] UA Leuk Est Negative Normal Negative [facility] Comment on above: Performed By: #### U A, UAMIC #### [place] [address] UA Nitrite Negative Normal Negative [facility] Comment on above: Performed By: #### U A, UAMIC #### [address] [address] UA pH 8.5 Abnormal 5.0 - 8.0 [facility] Comment on above: Performed By: #### U A, UAMIC #### [address] [address] UA Protein Negative Normal Negative [facility] Comment on above: Performed By: #### U A, UAMIC #### [place] [address] UA Spec Grav 1.020 Normal 1.015-1.025 [facility] Comment on above: Performed By: #### U A UAMIC #### [place] [address] UA Specimen Type Clean Catch Normal [facility] Comment on above: Performed By: #### U Brayden UAMIC #### [place] [address] UA Urobilinogen 2.0 E.U./dL Abnormal 0.2-1.0 [facility] Comment on above: Performed By: #### U Brayden UAMIC #### [place] [address] Urobilinogen (U) [Mass/Vol] Negative Normal Negative [facility] Comment on above: Performed By: #### U A UAMIC #### [place] [address] UAMICon 05-30-2025 UA RBC 0-2 Normal 0-2 [facility] Comment on above: Performed By: #### U A, UAMIC #### [place] [address] UA Squam Epithelial 0-2 Normal 0-20 [facility] Comment on above: Performed By: #### U A, UAMIC #### [place] [address] UA WBC 0-2 Normal 0-5 [facility] Comment on above: Performed By: #### U A, UAMIC #### [facility] [address] [place], [place] [address] VIDHon 05-30-2025 Vit. D 25-Hydroxy 21.2 ng/mL Normal [facility] Comment on above: Result Comment: Inte rpretive Values Based on Total 25(OH) Vitamin D: Deficient <20 ng/mL Insufficient 20 - <30 ng/mL Sufficient 30-100 ng/mL Performed By: #### A DIFF, CMP, VIDH, MG, A1C, CBC, FES, FE, TSH, ANEU, PRO, FERR, GFR ####[address] [address]#### B12 ####[address] [address] .Auto Diffon 03-15-2025 Basophil, Absolute 0.0 10 3/mcL Normal 0.0-0.3 [facility] Comment on above: Performed By: #### L IP, MG, CMP, GFR, CBC, ADIFF, ANEU #### [address] [address] Basophils/100 WBC (Bld) 0.8 % Normal 0.0-2.5 [facility] Comment on above: Performed By: #### L IP, MG, CMP, GFR, CBC, ADIFF, ANEU #### [address] [address] Eosinophil, Absolute 0.1 10 3/mcL Normal 0.0-0.7 [facility] Comment on above: Performed By: #### L IP, MG, CMP, GFR, CBC, ADIFF, ANEU #### [address] [address] Eosinophils/100 WBC (Bld) 2.7 % Normal 0.0-6.0 [facility] Comment on above: Performed By: #### L IP, MG, CMP, GFR, CBC, ADIFF, ANEU #### [address] [address] Lymphocyte, Absolute 1.4 10 3/mcL Normal 0.9-4.3 [facility] Comment on above: Performed By: #### L IP, MG, CMP, GFR, CBC, ADIFF, ANEU #### [address] [address] Lymphocytes/100 WBC (Bld) 28.1 % Normal 20.0-40.0 [facility] Comment on above: Performed By: #### L IP, MG, CMP, GFR, CBC, ADIFF, ANEU #### [address] [address] Monocyte, Absolute 0.4 10 3/mcL Normal 0.1-1.4 [facility] Comment on above: Performed By: #### L IP, MG, CMP, GFR, CBC, ADIFF, ANEU #### [address] [address] Monocytes/100 WBC (Bld) 8.7 % Normal 2.0-13.0 [facility] Comment on above: Performed By: #### L IP, MG, CMP, GFR, CBC, ADIFF, ANEU #### [address] [address] Neutrophils/100 WBC (Bld) 59.7 % Normal 50.0-75.0 [facility] Comment on above: Performed By: #### L IP, MG, CMP, GFR, CBC, ADIFF, ANEU #### [address] [address] .GFRon 03-15-2025 Estimated Glomerular Filtration Rate 114 ml/min/1.73sqm Normal [facility] Comment on above: Result Comment: Stages of Chronic Kidney Disease (CKD) Stage Description eGFR(ml/min/1.73 sq.m.) CKD 1 Normal kidney function or >=90 normal kindney function with possible kidney damage (ex. Proteinuria) CKD 2 Kidney damage with mild loss 60-89 of kidney function CKD 3a Mild to moderate loss of kidney 45-59 function CKD 3b Moderate to severe loss of 30-44 of kindey function CKD 4 Severe loss of kidney function 15-29 CKD 5 Kidney failure <15 Note: (go live 2024) the eGFR calculation was updated to the 2020 CKD-EPI creatinine equation without a race factor to calculate the eGFR results. Performed By: #### L IP, MG, CMP, GFR, CBC, ADIFF, ANEU #### [address] [address] .NEUABSon 03-15-2025 Neutrophil, Absolute 2.9 10 3/mcL Normal 2.3-8.1 [facility] Comment on above: Performed By: #### L IP, MG, CMP, GFR, CBC, ADIFF, ANEU #### [place] [address] CBCon 03-15-2025 Erythrocyte distribution width (RBC) [Ratio] 12.3 % Normal 11.5-15.5 [facility] Comment on above: Performed By: #### L IP, MG, CMP, GFR, CBC, ADIFF, ANEU #### [place] [address] Hematocrit (Bld) [Volume fraction] 44.8 % Normal 40.0-52.0 [facility] Comment on above: Performed By: #### L IP, MG, CMP, GFR, CBC, ADIFF, ANEU #### [place] [address] Hgb 15.9 G/dL Normal 13.0-17.5 [facility] Comment on above: Performed By: #### L IP, MG, CMP, GFR, CBC, ADIFF, ANEU #### [place] [address] MCH (RBC) [Entitic mass] 33.8 pg High 27.0-33.0 [facility] Comment on above: Performed By: #### L IP, MG, CMP, GFR, CBC, ADIFF, ANEU #### [place] [address] MCHC 35.5 G/dL Normal 32.0-36.0 [facility] Comment on above: Performed By: #### L IP, MG, CMP, GFR, CBC, ADIFF, ANEU #### [place] [address] MCV (RBC) [Entitic vol] 95.2 fL Normal 81.0-100.0 [facility] Comment on above: Performed By: #### L IP, MG, CMP, GFR, CBC, ADIFF, ANEU #### [place] [address] Platelet 156 10 3/mcL Normal 150-450 [facility] Comment on above: Performed By: #### L IP, MG, CMP, GFR, CBC, ADIFF, ANEU #### [place] [address] Platelet mean volume (Bld) [Entitic vol] 9.9 fL Normal 6.4-10.5 [facility] Comment on above: Performed By: #### L IP, MG, CMP, GFR, CBC, ADIFF, ANEU #### [place] [address] RBC 4.71 10 6/mcL Normal 4.50-6.00 [facility] Comment on above: Performed By: #### L IP, MG, CMP, GFR, CBC, ADIFF, ANEU #### [place] [address] WBC 4.9 10 3/mcL Normal 4.5-10.8 [facility] Comment on above: Performed By: #### L IP, MG, CMP, GFR, CBC, ADIFF, ANEU #### [place] [address] CMPon 03-15-2025 Albumin Level 4.2 G/dL Normal 3.2-4.8 [facility] Comment on above: Performed By: #### L IP, MG, CMP, GFR, CBC, ADIFF, ANEU #### [place] [address] Albumin/Globulin [Mass ratio] 1.2 {ratio} Normal 0.9-1.6 [facility] Comment on above: Performed By: #### L IP, MG, CMP, GFR, CBC, ADIFF, ANEU #### [place] [address] ALP [Catalytic activity/Vol] 87 U/L Normal 38-126 [facility] Comment on above: Performed By: #### L IP, MG, CMP, GFR, CBC, ADIFF, ANEU #### [address] [address] ALT [Catalytic activity/Vol] 182 U/L High 12-55 [facility] Comment on above: Performed By: #### L IP, MG, CMP, GFR, CBC, ADIFF, ANEU #### [address] [address] AST [Catalytic activity/Vol] 106 U/L High 8-34 [facility] Comment on above: Performed By: #### L IP, MG, CMP, GFR, CBC, ADIFF, ANEU #### [address] [address] Bili Total 0.80 mg/dL Normal 0.20-1.20 [facility] Comment on above: Result Comment: Use of this assay is not recommended for patients undergoing treatment with eltrombopag due to the potential for falsely elevated results. Performed By: #### L IP, MG, CMP, GFR, CBC, ADIFF, ANEU #### [place] [id number] BUN/Creatinine Ratio 19.2 ratio Normal 10.0-22.0 [facility] Comment on above: Performed By: #### L IP, MG, CMP, GFR, CBC, ADIFF, ANEU #### [address] [address] Calcium [Mass/Vol] 9.5 mg/dL Normal 8.7-10.4 [facility] Comment on above: Performed By: #### L IP, MG, CMP, GFR, CBC, ADIFF, ANEU #### [address] [address] Chloride [Moles/Vol] 102 mmol/L Normal 98-110 [facility] Comment on above: Performed By: #### L IP, MG, CMP, GFR, CBC, ADIFF, ANEU #### [address] [address] CO2 [Moles/Vol] 28 mmol/L Normal 22-32 [facility] Comment on above: Performed By: #### L IP, MG, CMP, GFR, CBC, ADIFF, ANEU #### [address] [address] Creatinine [Mass/Vol] 0.78 mg/dL Normal 0.60-1.40 [facility] Comment on above: Result Comment: Test ing performed on [email or web address].Me analyzer using enzymatic creatinine methodology. Performed By: #### L IP, MG, CMP, GFR, CBC, ADIFF, ANEU #### [place] [address] Electrolyte Balance 8.0 mEq/L Normal 4.0-15.0 [facility] Comment on above: Performed By: #### L IP, MG, CMP, GFR, CBC, ADIFF, ANEU #### [place] [id number] Globulin 3.4 G/dL Normal 2.5-4.2 [facility] Comment on above: Performed By: #### L IP, MG, CMP, GFR, CBC, ADIFF, ANEU #### [place] [address] Glucose [Mass/Vol] 149 mg/dL High 70-110 [facility] Comment on above: Performed By: #### L IP, MG, CMP, GFR, CBC, ADIFF, ANEU #### [place] [address] Potassium [Moles/Vol] 3.9 mmol/L Normal 3.5-5.0 [facility] Comment on above: Performed By: #### L IP, MG, CMP, GFR, CBC, ADIFF, ANEU #### [place] [address] Sodium [Moles/Vol] 138 mmol/L Normal 136-145 [facility] Comment on above: Performed By: #### L IP, MG, CMP, GFR, CBC, ADIFF, ANEU #### [place] [address] Total Protein 7.6 G/dL Normal 5.7-8.2 [facility] Comment on above: Performed By: #### L IP, MG, CMP, GFR, CBC, ADIFF, ANEU #### [place] [address] Urea nitrogen [Mass/Vol] 15.0 mg/dL Normal 8.0-22.0 [facility] Comment on above: Performed By: #### L IP, MG, CMP, GFR, CBC, ADIFF, ANEU #### [address] [address] LIPon 03-15-2025 Lipase Level 47 U/L Normal 12-53 [facility] Comment on above: Performed By: #### L IP, MG, CMP, GFR, CBC, ADIFF, ANEU #### [address] [address] MGon 03-15-2025 Magnesium [Mass/Vol] 1.7 mg/dL Normal 1.6-2.4 [facility] Comment on above: Performed By: #### L IP, MG, CMP, GFR, CBC, ADIFF, ANEU #### [address] [address] XR CHEST 2 VIEWSon XR CHEST 2 VIEWS ORIGINAL EXAMINATION: TWO XRAY VIEWS OF THE CHEST 01/26/2025 4:09 pm COMPARISON: 08/18/2024 HISTORY: ORDERING SYSTEM PROVIDED HISTORY: Reason for Exam: chest pain, intermittent wheezing FINDINGS: Cardiomediastinal silhouette is within normal limits. There is no overt edema. No focal consolidation. No pleural effusion or pneumothorax. No acute osseous abnormality. IMPRESSION: No acute cardiopulmonary process. Interpreted by: Manuela Shea Preliminary Report By: Manuela Shea Electronically signed By Manuela Shea Dictated Date: 01/26/2025 4:15:32 PM Prelim Date: 01/26/2025 4:16:17 PM Sign Date: 01/26/2025 4:16:17 PM Ordering Provider: PANCHO March [facility] .Auto Diffon 08-18-2024 Basophil, Absolute 0.0 10 3/mcL Normal 0.0-0.2 [facility] Comment on above: Performed By: #### B MP, CBC, ADIFF, PBNP, MG, GFR, MDW, ANEU, TROPHS, TSHR, DIMER ####[place] [address] [place], [place] [address] Basophils/100 WBC (Bld) 0.7 % Normal 0.0-2.5 [facility] Comment on above: Performed By: #### B MP, CBC, ADIFF, PBNP, MG, GFR, MDW, ANEU, TROPHS, TSHR, DIMER ####[address] [address] Eosinophil, Absolute 0.1 10 3/mcL Normal 0.0-0.7 [facility] Comment on above: Performed By: #### B MP, CBC, ADIFF, PBNP, MG, GFR, MDW, ANEU, TROPHS, TSHR, DIMER ####[address] [address] Eosinophils/100 WBC (Bld) 2.3 % Normal 0.0-7.0 [facility] Comment on above: Performed By: #### B MP, CBC, ADIFF, PBNP, MG, GFR, MDW, ANEU, TROPHS, TSHR, DIMER ####[address] [address] Lymphocyte, Absolute 1.5 10 3/mcL Normal 0.9-4.3 [facility] Comment on above: Performed By: #### B MP, CBC, ADIFF, PBNP, MG, GFR, MDW, ANEU, TROPHS, TSHR, DIMER ####[address] [address] Lymphocytes/100 WBC (Bld) 22.6 % Normal 20.0-40.0 [facility] Comment on above: Performed By: #### B MP, CBC, ADIFF, PBNP, MG, GFR, MDW, ANEU, TROPHS, TSHR, DIMER ####[place] [address] [place], [place] [address] Monocyte, Absolute 0.5 10 3/mcL Normal 0.1-1.4 [facility] Comment on above: Performed By: #### B MP, CBC, ADIFF, PBNP, MG, GFR, MDW, ANEU, TROPHS, TSHR, DIMER ####[address] [address] Monocytes/100 WBC (Bld) 8.1 % Normal 2.0-13.0 [facility] Comment on above: Performed By: #### B MP, CBC, ADIFF, PBNP, MG, GFR, MDW, ANEU, TROPHS, TSHR, DIMER ####[address] [place], [place] [address] Neutrophils/100 WBC (Bld) 66.3 % Normal 50.0-75.0 [facility] Comment on above: Performed By: #### B MP, CBC, ADIFF, PBNP, MG, GFR, MDW, ANEU, TROPHS, TSHR, DIMER ####[id number] [place], [place] [address] .GFRon 08-18-2024 GFR 111 ml/min/1.73sqm Normal [facility] Comment on above: Result Comment: GFR Population mean for , Non- Americans Ages 20-29 = 116 mL/min/1.73 sq.m. Ages 30-39 = 107 mL/min/1.73 sq.m. Ages 40-49 = 99 mL/min/1.73 sq.m. Ages 50-59 = 93 mL/min/1.73 sq.m. Ages 60-69 = 85 mL/min/1.73 sq.m. Ages 70+ = 75 mL/min/1.73 sq.m. Chronic Kidney Disease: Less than 60 mL/min/1.73 square meters End Stage Renal Disease: Less than 15 mL/min/1.73 square meters Performed By: #### T [facility] #### [place] [id number] [place], [place] [address] GFR Non- 92 ml/min/1.73sqm Normal [facility] Comment on above: Result Comment: GFR Population mean for , Non- Americans Ages 20-29 = 116 mL/min/1.73 sq.m. Ages 30-39 = 107 mL/min/1.73 sq.m. Ages 40-49 = 99 mL/min/1.73 sq.m. Ages 50-59 = 93 mL/min/1.73 sq.m. Ages 60-69 = 85 mL/min/1.73 sq.m. Ages 70+ = 75 mL/min/1.73 sq.m. Chronic Kidney Disease: Less than 60 mL/min/1.73 square meters End Stage Renal Disease: Less than 15 mL/min/1.73 square meters Performed By: #### T JIMMY #### [address] [address] .MDWon 08-18-2024 Monocyte Distribution Width 19.14 Normal 0.00-20.00 [facility] Comment on above: Result Comment: For ED adult patients suspected of sepsis, MDW<=20.0 does not rule out sepsis or risk of sepsis Performed By: #### B MP, CBC, ADIFF, PBNP, MG, GFR, MDW, ANEU, TROPHS, TSHR, DIMER ####[place] [address] [place], [place] [address] .NEUABSon 08-18-2024 Neutrophil, Absolute 4.3 10 3/mcL Normal 2.3-8.1 [facility] Comment on above: Performed By: #### B MP, CBC, ADIFF, PBNP, MG, GFR, MDW, ANEU, TROPHS, TSHR, DIMER ####[address] [address] BMPon 08-18-2024 BUN/Creatinine Ratio 19 ratio Normal 7-27 [facility] Comment on above: Performed By: #### B MP, CBC, ADIFF, PBNP, MG, GFR, MDW, ANEU, TROPHS, TSHR, DIMER ####[address] [address] Calcium [Mass/Vol] 9.1 mg/dL Normal 8.4-10.2 [facility] Comment on above: Performed By: #### B MP, CBC, ADIFF, PBNP, MG, GFR, MDW, ANEU, TROPHS, TSHR, DIMER ####[place] [address] [place], [place] [address] Chloride [Moles/Vol] 98 mmol/L Normal 98-107 [facility] Comment on above: Performed By: #### B MP, CBC, ADIFF, PBNP, MG, GFR, MDW, ANEU, TROPHS, TSHR, DIMER ####[address] [address] CO2 [Moles/Vol] 29 mmol/L Normal 22-29 [facility] Comment on above: Performed By: #### B MP, CBC, ADIFF, PBNP, MG, GFR, MDW, ANEU, TROPHS, TSHR, DIMER ####[address] [address] Creatinine [Mass/Vol] 0.91 mg/dL Normal 0.70-1.30 [facility] Comment on above: Result Comment: Test ing performed on Siemens Dimension EXL analyzer using a modified kinetic Bill technique. Performed By: #### B MP, CBC, ADIFF, PBNP, MG, GFR, MDW, ANEU, TROPHS, TSHR, DIMER ####[address] [address] Electrolyte Balance 11.0 mEq/L Normal 4.0-15.0 [facility] Comment on above: Performed By: #### B MP, CBC, ADIFF, PBNP, MG, GFR, MDW, ANEU, TROPHS, TSHR, DIMER ####[address] [address] Glucose [Mass/Vol] 175 mg/dL High 70-105 [facility] Comment on above: Performed By: #### B MP, CBC, ADIFF, PBNP, MG, GFR, MDW, ANEU, TROPHS, TSHR, DIMER ####[address] [address] Potassium [Moles/Vol] 3.2 mmol/L Low 3.5-5.1 [facility] Comment on above: Performed By: #### B MP, CBC, ADIFF, PBNP, MG, GFR, MDW, ANEU, TROPHS, TSHR, DIMER ####[address] [address] Sodium [Moles/Vol] 138 mmol/L Normal 136-145 [facility] Comment on above: Performed By: #### B MP, CBC, ADIFF, PBNP, MG, GFR, MDW, ANEU, TROPHS, TSHR, DIMER ####[place] [address] Urea nitrogen [Mass/Vol] 17 mg/dL Normal 7-18 [facility] Comment on above: Performed By: #### B MP, CBC, ADIFF, PBNP, MG, GFR, MDW, ANEU, TROPHS, TSHR, DIMER ####[place] [address] CBCon 08-18-2024 Erythrocyte distribution width (RBC) [Ratio] 12.1 % Normal 11.5-15.5 [facility] Comment on above: Performed By: #### B MP, CBC, ADIFF, PBNP, MG, GFR, MDW, ANEU, TROPHS, TSHR, DIMER ####[place] [address] Hematocrit (Bld) [Volume fraction] 45.7 % Normal 40.0-52.0 [facility] Comment on above: Performed By: #### B MP, CBC, ADIFF, PBNP, MG, GFR, MDW, ANEU, TROPHS, TSHR, DIMER ####[place] [address] Hgb 16.5 G/dL Normal 13.0-17.5 [facility] Comment on above: Performed By: #### B MP, CBC, ADIFF, PBNP, MG, GFR, MDW, ANEU, TROPHS, TSHR, DIMER ####[place] [address] MCH (RBC) [Entitic mass] 33.4 pg High 27.0-33.0 [facility] Comment on above: Performed By: #### B MP, CBC, ADIFF, PBNP, MG, GFR, MDW, ANEU, TROPHS, TSHR, DIMER ####[place] [id number] [place] [address] MCHC 36.0 G/dL Normal 32.0-36.0 [facility] Comment on above: Performed By: #### B MP, CBC, ADIFF, PBNP, MG, GFR, MDW, ANEU, TROPHS, TSHR, DIMER ####[facility] [place], [place] [address] MCV (RBC) [Entitic vol] 92.7 fL Normal 81.0-100.0 [facility] Comment on above: Performed By: #### B MP, CBC, ADIFF, PBNP, MG, GFR, MDW, ANEU, TROPHS, TSHR, DIMER ####[facility] [place], [place] [address] Platelet 153 10 3/mcL Normal 150-450 [facility] Comment on above: Performed By: #### B MP, CBC, ADIFF, PBNP, MG, GFR, MDW, ANEU, TROPHS, TSHR, DIMER ####[facility] [place], [place] [address] Platelet mean volume (Bld) [Entitic vol] 8.0 fL Normal 6.4-10.5 [facility] Comment on above: Performed By: #### B MP, CBC, ADIFF, PBNP, MG, GFR, MDW, ANEU, TROPHS, TSHR, DIMER ####[facility] [place], [place] [address] RBC 4.92 10 6/mcL Normal 4.50-6.00 [facility] Comment on above: Performed By: #### B MP, CBC, ADIFF, PBNP, MG, GFR, MDW, ANEU, TROPHS, TSHR, DIMER ####[facility] [place], [place] [address] WBC 6.5 10 3/mcL Normal 4.5-10.8 [facility] Comment on above: Performed By: #### B MP, CBC, ADIFF, PBNP, MG, GFR, MDW, ANEU, TROPHS, TSHR, DIMER ####[address] [place], [place] [address] DIMERon 08-18-2024 D-Dimer <200 Normal 0-230 [facility] Comment on above: Result Comment: DDN: Results reported in D-DU ng/mL. Negative for D-dimer. DVT/PE is highly unlikely. Note: False negative results may be seen in patients on anticoagulant therapy. The result of the D-Dimer test should be evaluated in the context of all the clinical and laboratory data available. In those instances where the laboratory result does not agree with the clinical evaluation, additional tests should be performed accordingly. If the D-Dimer result is used to exclude DVT or PE, the recommended cutoff value is less than 230 ng/mL. The D-Dimer result should not be used alone to rule in DVT/PE, but should be used in conjunction with a clinical pretest probability (PTP)assessment model to exclude venous thromboembolism (VTE) in outpatients suspected of deep venous thrombosis (DVT) and pulmonary embolism (PE). Performed By: #### B MP, CBC, ADIFF, PBNP, MG, GFR, MDW, ANEU, TROPHS, TSHR, DIMER ####[id number] [place] [address] LABORATORYOrdered By: SYSTEM SYSTEM on 08-18-2024 Troponin I.cardiac DL <= 0.01 ng/mL [Mass/Vol] ng/L Normal 0 - 76 ng/L AO ADM SS Comment on above: Interpretive Data: H igh Sensitive Troponin I Reference Ranges: Female: 0-51 ng/L Male: 0-76 ng/L Testing performed on [employer] using a homogeneous sandwich chemiluminescent immunoassay based on [employer] technology. Basophils (Bld) [#/Vol] 0.0 103/mcL Normal 0.0 - 0.2 10^3/mcL AO Workflow SS Basophils/100 WBC (Bld) 0.7 % Normal 0.0 - 2.5 % AO Workflow SS Calcium [Mass/Vol] 9.1 mg/dL Normal 8.4 - 10. 2 mg/dL AO ADM SS Chloride [Moles/Vol] 98 mmol/L Normal 98 - 10 7 mmol/L AO ADM SS CO2 [Moles/Vol] 29 mmol/L Normal 22 - 29 mmol/L AO ADM SS Creatinine [Mass/Vol] 0.91 mg/dL Normal 0.70 - 1.30 mg/dL AO ADM SS Comment on above: Interpretive Data: T esting performed on [employer] Dimension EXL analyzer using a modified kinetic Bill technique. Electrolyte Balance 11.0 mEq/L Normal 4.0 - 15 .0 mEq/L AO ADM SS Eosinophil, Absolute 0.1 103/mcL Normal 0.0 - 0 .7 10^3/mcL AO Workflow SS Eosinophils/100 WBC (Bld) 2.3 % Normal 0.0 - 7.0 % AO Workflow SS Erythrocyte distribution width (RBC) [Ratio] 12.1 % Normal 11.5 - 15.5 % AO Workflow SS Fibrin D-dimer DDU (PPP) [Mass/Vol] ng/mL D-DU Normal 0 - 230 ng/mL D-DU AO [facility] SS Comment on above: Result Comment: DDN: Results reported in D-DU ng/mL. Negative for D-dimer. DVT/PE is highly unlikely. Note: False negative results may be seen in patients on anticoagulant therapy. Interpretive Data: T he result of the D-Dimer test should be evaluated in the context of all the clinical and laboratory data available. In those instances where the laboratory result does not agree with the clinical evaluation, additional tests should be performed accordingly. If the D-Dimer result is used to exclude DVT or PE, the recommended cutoff value is less than 230 ng/mL. The D-Dimer result should not be used alone to rule in DVT/PE, but should be used in conjunction with a clinical pretest probability (PTP)assessment model to exclude venous thromboembolism (VTE) in outpatients suspected of deep venous thrombosis (DVT) and pulmonary embolism (PE). GFR/1.73 sq M.predicted among blacks MDRD (S/P/Bld) [Vol rate/Area] 111 ml/min/1.73sqm Invalid Interpretation Code AO Chemistry S Comment on above: Interpretive Data: GFR Population mean for , Non- Americans Ages 20-29 = 116 mL/min/1.73 sq.m. Ages 30-39 = 107 mL/min/1.73 sq.m. Ages 40-49 = 99 mL/min/1.73 sq.m. Ages 50-59 = 93 mL/min/1.73 sq.m. Ages 60-69 = 85 mL/min/1.73 sq.m. Ages 70+ = 75 mL/min/1.73 sq.m. Chronic Kidney Disease: Less than 60 mL/min/1.73 square meters End Stage Renal Disease: Less than 15 mL/min/1.73 square meters GFR/1.73 sq M.predicted among non-blacks MDRD (S/P/Bld) [Vol rate/Area] 92 ml/min/1.73sqm Invalid Interpretation Code AO Chemistry S Comment on above: Interpretive Data: GFR Population mean for , Non- Americans Ages 20-29 = 116 mL/min/1.73 sq.m. Ages 30-39 = 107 mL/min/1.73 sq.m. Ages 40-49 = 99 mL/min/1.73 sq.m. Ages 50-59 = 93 mL/min/1.73 sq.m. Ages 60-69 = 85 mL/min/1.73 sq.m. Ages 70+ = 75 mL/min/1.73 sq.m. Chronic Kidney Disease: Less than 60 mL/min/1.73 square meters End Stage Renal Disease: Less than 15 mL/min/1.73 square meters Glucose [Mass/Vol] 175 mg/dL High 70 - 105 mg/dL AO ADM SS Hematocrit (Bld) [Volume fraction] 45.7 % Normal 40.0 - 52.0 % AO Workflow SS Hemoglobin (Bld) [Mass/Vol] 16.5 G/dL Normal 13.0 - 17.5 G/dL AO Workflow SS Lymphocytes (Bld) [#/Vol] 1.5 103/mcL Normal 0.9 - 4.3 10^3/mcL AO Workflow SS Lymphocytes/100 WBC (Bld) 22.6 % Normal 20.0 - 40.0 % AO Workflow SS Magnesium [Mass/Vol] 1.7 mg/dL Low 1.8 - 2 .4 mg/dL AO ADM SS MCH (RBC) [Entitic mass] 33.4 pg High 27.0 - 33.0 pg AO Workflow SS MCHC 36.0 G/dL Normal 32.0 - 36.0 G/dL AO Workflow SS MCV (RBC) [Entitic vol] 92.7 fL Normal 81.0 - 100.0 fL AO Workflow SS Monocyte distribution width Auto (Bld) [Entitic vol] 19.14 1 Normal 0.00 - 20.00 AO Workflow SS Comment on above: Result Comment: For ED adult patients suspected of sepsis, MDW<=20.0 does not rule out sepsis or risk of sepsis Monocytes (Bld) [#/Vol] 0.5 103/mcL Normal 0.1 - 1.4 10^3/mcL AO Workflow SS Monocytes/100 WBC (Bld) 8.1 % Normal 2.0 - 13.0 % AO Workflow SS Natriuretic peptide.B prohormone N-Terminal [Mass/Vol] 36 pg/mL Normal 0 - 125 pg/mL AO ADM SS Comment on above: Interpretive Data: N T-proBNP results of less than 300 pg/mL effectively rules out acute congestive heart failure with 99% negative predictive value. Neutrophils (Bld) [#/Vol] 4.3 103/mcL Normal 2.3 - 8.1 10^3/mcL AO Workflow SS Neutrophils/100 WBC (Bld) 66.3 % Normal 50.0 - 75.0 % AO Workflow SS Platelet mean volume (Bld) [Entitic vol] 8.0 fL Normal 6.4 - 10.5 fL AO Workflow SS Platelets (Bld) [#/Vol] 153 103/mcL Normal 150 - 450 10^3/mcL AO Workflow SS Potassium [Moles/Vol] 3.2 mmol/L Low 3.5 - 5.1 mmol/L AO ADM SS RBC (Bld) [#/Vol] 4.92 106/mcL Normal 4.50 - 6.0 0 10^6/mcL AO Workflow SS Sodium [Moles/Vol] 138 mmol/L Normal 136 - 145 mmol/L AO ADM SS Troponin I.cardiac DL <= 0.01 ng/mL [Mass/Vol] ng/L Normal 0 - 76 ng/L AO ADM SS Comment on above: Interpretive Data: H igh Sensitive Troponin I Reference Ranges: Female: 0-51 ng/L Male: 0-76 ng/L Testing performed on [employer] using a homogeneous sandwich chemiluminescent immunoassay based on [employer] technology. TSH Qn 1.50 m[IU]/L Normal 0.36 - 3.74 mcIU/mL AO ADM SS Urea nitrogen [Mass/Vol] 17 mg/dL Normal 7 - 18 mg/dL AO ADM SS Urea nitrogen/Creatinine [Mass ratio] 19 ratio Normal 7 - 27 ratio AO ADM SS WBC (Bld) [#/Vol] 6.5 103/mcL Normal 4.5 - 10.8 10^3/mcL AO Workflow SS MGon 08-18-2024 Magnesium [Mass/Vol] 1.7 mg/dL Low 1.8-2.4 [facility] Comment on above: Performed By: #### B MP, CBC, ADIFF, PBNP, MG, GFR, MDW, ANEU, TROPHS, TSHR, DIMER ####[address] [address] PBNPon 08-18-2024 Natriuretic peptide B (Bld) [Mass/Vol] 36 pg/mL Normal 0-125 [facility] Comment on above: Result Comment: NT-p roBNP results of less than 300 pg/mL effectively rules out acute congestive heart failure with 99% negative predictive value. Performed By: #### T JIMMY #### [place] [id number] [facility] High Sensitivity Troponin I <4 Normal 0-76 [facility] Comment on above: Result Comment: High Sensitive Troponin I Reference Ranges: Female: 0-51 ng/L Male: 0-76 ng/L Testing performed on [employer] using a homogeneous sandwich chemiluminescent immunoassay based on [employer] technology. Performed By: #### T JAYLIN #### [address] [address] High Sensitivity Troponin I <4 Normal 0-76 [facility] Comment on above: Result Comment: High Sensitive Troponin I Reference Ranges: Female: 0-51 ng/L Male: 0-76 ng/L Testing performed on Dimension EXL using a homogeneous sandwich chemiluminescent immunoassay based on [employer] technology. Performed By: #### T JAYLIN #### [address] [address] TSHRon 08-18-2024 TSH Qn 1.50 m[IU]/L Normal 0.36-3.74 [facility] Comment on above: Performed By: #### B MP, CBC, ADIFF, PBNP, MG, GFR, MDW, ANEU, TROPHS, TSHR, DIMER ####[address] [place], [place] [address] XR CHEST 1 VIEWon 08-18-2024 XR CHEST 1 VIEW ORIGINAL EXAMINATION: ONE XRAY VIEW OF THE CHEST 08/18/2024 3:39 pm COMPARISON: 01/04/2024 HISTORY: ORDERING SYSTEM PROVIDED HISTORY: Reason for Exam: chest pain FINDINGS: Cardiomediastinal silhouette is within normal limits. There is no overt edema. No focal consolidation. Costophrenic angles are sharp. No pneumothorax. No acute osseous abnormality. IMPRESSION: No acute cardiopulmonary process. Interpreted by: Mnauela Shea Preliminary Report By: Manuela Shea Electronically signed By Manuela Shea Dictated Date: 08/18/2024 3:40:02 PM Prelim Date: 08/18/2024 3:40:38 PM Sign Date: 08/18/2024 3:40:38 PM Ordering Provider: CARLOS RAMOS [facility] 07-28-2024 A2-Macroglob 199 mg/dL Normal 110-276 [facility] Comment on above: Performed By: #### L IP, MG, CMP, GFR, CBC, ADIFF, ANEU #### [facility] [address] [place] [id number] ALT [Catalytic activity/Vol] 56 U/L High 0-55 [facility] Comment on above: Performed By: #### L IP, MG, CMP, GFR, CBC, ADIFF, ANEU #### [facility] [address] [place] [id number] Apo A-1 119 mg/dL Normal 101-178 [facility] Comment on above: Performed By: #### L IP, MG, CMP, GFR, CBC, ADIFF, ANEU #### [facility] [address] [place] [id number] Bilirubin [Mass/Vol] 0.7 mg/dL Normal 0.0-1.2 [facility] Comment on above: Performed By: #### L IP, MG, CMP, GFR, CBC, ADIFF, ANEU #### [facility] [address] [place] [id number] Comment FDA HCV Comment [facility] Comment on above: Result Comment: This test was developed and its performance characteristics determined by [facility]. It has not been cleared or approved by the Food and Drug Administration. The FDA has determined that such clearance or approval is not necessary. For questions regarding this report please contact customer service at . Performed At: [facility] [id number] Tino Lobo MD Ph:[phone] Performed By: #### L IP, MG, CMP, GFR, CBC, ADIFF, ANEU #### [place] [address] Fibrosis Score 0.39 High 0.00-0.21 [facility] Comment on above: Performed By: #### L IP, MG, CMP, GFR, CBC, ADIFF, ANEU #### [place] [address] Fibrosis Scoring Comment [facility] Comment on above: Result Comment: <=0.21 = Stage F0 - No fibrosis 0.21 - 0.27 = Stage F0 - F1 0.27 - 0.31 = Stage F1 - Portal fibrosis 0.31 - 0.48 = Stage F1 - F2 0.48 - 0.58 = Stage F2 - Bridging fibrosis with few septa 0.58 - 0.72 = Stage F3 - Bridging fibrosis with many septa 0.72 - 0.74 = Stage F3 - F4 >0.74 = Stage F4 - Cirrhosis Performed By: #### L IP, MG, CMP, GFR, CBC, ADIFF, ANEU #### [place] [address] Fibrosis Stage F1-F2 [facility] MAIN Comment on above: Performed By: #### L IP, MG, CMP, GFR, CBC, ADIFF, ANEU #### [place] [address] FibroSure Interp Comment [facility] MAIN Comment on above: Result Comment: Quantitative results of 6 biochemical tests are analyzed using a computational algorithm to provide a quantitative surrogate marker (0.0-1.0) for liver fibrosis (METAVIR F0- F4) and for necroinflammatory activity (METAVIR A0-A3). Performed By: #### L IP, MG, CMP, GFR, CBC, ADIFF, ANEU #### [place] [address] Gamma glutamyl transferase [Catalytic activity/Vol] 76 U/L High 0-65 [facility] MAIN Comment on above: Performed By: #### L IP, MG, CMP, GFR, CBC, ADIFF, ANEU #### [place] [address] Haptoglobin 116 mg/dL Normal 23-355 [facility] MAIN Comment on above: Performed By: #### L IP, MG, CMP, GFR, CBC, ADIFF, ANEU #### [place] [address] Limit HCV Fibro Comment [facility] MAIN Comment on above: Result Comment: The negative predictive value of a Fibrotest score <0.31 (absence of clinically significant fibrosis) was 85% when compared to liver biopsy in 1,270 HCV infected patients with a 38% prevalence of significant liver fibrosis (F2, 3 or 4). The positive predictive value of a Fibro-test score >0.48 (F2, 3, 4) was 61% in that same patient cohort. HCV FibroSURE is not recommended in patients with Gilbert Disease, acute hemolysis (e.g. HCV ribavirin therapy mediated hemolysis) acute hepa-titis of the liver, extra- hepatic cholestasis, transplant patients, and/or renal insufficiency patients. Any of these clinical situations may lead to inaccurate quantitative predictions of fibrosis and necroinflammatory activity in the liver. Performed By: #### L IP, MG, CMP, GFR, CBC, ADIFF, ANEU #### [place] [address] Method HCV Fib Comment [facility] MAIN Comment on above: Result Comment: The analytes tested are performed by FibroSure-Specific methods. Not intended for use with other diagnostic considerations. Performed By: #### L IP, MG, CMP, GFR, CBC, ADIFF, ANEU #### [place] [address] Necro Act Grade A1-A2 Normal [facility] MAIN Comment on above: Performed By: #### L IP, MG, CMP, GFR, CBC, ADIFF, ANEU #### [place] [address] Necro Act Score 0.36 High 0.00-0.17 [facility] MAIN Comment on above: Performed By: #### L IP, MG, CMP, GFR, CBC, ADIFF, ANEU #### [place] [address] Necro Act Scoring Comment [facility] MAIN Comment on above: Result Comment: <0.17 = Grade A0 - No Activity 0.17 - 0.29 = Grade A0 - A1 0.29 - 0.36 = Grade A1 - Minimal activity 0.36 - 0.52 = Grade A1 - A2 0.52 - 0.60 = Grade A2 - Moderate activity 0.60 - 0.62 = Grade A2 - A3 >0.62 = Grade A3 - Severe activity Performed By: #### L IP, MG, CMP, GFR, CBC, ADIFF, ANEU #### [place] [address] .GFRon 07-25-2024 GFR >60 [facility] MAIN Comment on above: Result Comment: GFR Population mean for , Non- Americans Ages 20-29 = 116 mL/min/1.73 sq.m. Ages 30-39 = 107 mL/min/1.73 sq.m. Ages 40-49 = 99 mL/min/1.73 sq.m. Ages 50-59 = 93 mL/min/1.73 sq.m. Ages 60-69 = 85 mL/min/1.73 sq.m. Ages 70+ = 75 mL/min/1.73 sq.m. Chronic Kidney Disease: Less than 60 mL/min/1.73 square meters End Stage Renal Disease: Less than 15 mL/min/1.73 square meters Performed By: #### B MP, GFR #### [place] [address] GFR Non- >60 [facility] MAIN Comment on above: Result Comment: GFR Population mean for , Non- Americans Ages 20-29 = 116 mL/min/1.73 sq.m. Ages 30-39 = 107 mL/min/1.73 sq.m. Ages 40-49 = 99 mL/min/1.73 sq.m. Ages 50-59 = 93 mL/min/1.73 sq.m. Ages 60-69 = 85 mL/min/1.73 sq.m. Ages 70+ = 75 mL/min/1.73 sq.m. Chronic Kidney Disease: Less than 60 mL/min/1.73 square meters End Stage Renal Disease: Less than 15 mL/min/1.73 square meters Performed By: #### B MP, GFR #### [address] [address] BMPon 07-25-2024 BUN/Creatinine Ratio 21.9 ratio Normal 10.0-22.0 [facility] MAIN Comment on above: Performed By: #### B MP, GFR #### [address] [address] Calcium [Mass/Vol] 10.0 mg/dL Normal 8.7-10.4 [facility] MAIN Comment on above: Performed By: #### B MP, GFR #### [address] [address] Chloride [Moles/Vol] 102 mmol/L Normal 98-110 [facility] MAIN Comment on above: Performed By: #### B MP, GFR #### [place] [id number] CO2 [Moles/Vol] 31 mmol/L Normal 22-32 [facility] MAIN Comment on above: Performed By: #### B MP, GFR #### [address] [address] Creatinine [Mass/Vol] 0.73 mg/dL Normal 0.60-1.40 [facility] MAIN Comment on above: Result Comment: Test ing performed on MatchMate.Me analyzer using enzymatic creatinine methodology. Performed By: #### B MP, GFR #### [address] [address] Electrolyte Balance 7.0 mEq/L Normal 4.0-15.0 [facility] MAIN Comment on above: Performed By: #### B MP, GFR #### [address] [address] Glucose [Mass/Vol] 109 mg/dL Normal 70-110 [facility] MAIN Comment on above: Performed By: #### B MP, GFR #### [address] [address] Potassium [Moles/Vol] 3.9 mmol/L Normal 3.5-5.0 [facility] MAIN Comment on above: Performed By: #### B MP, GFR #### [place] [id number] Sodium [Moles/Vol] 140 mmol/L Normal 136-145 [facility] MAIN Comment on above: Performed By: #### B MP, GFR #### [place] [id number] Urea nitrogen [Mass/Vol] 16.0 mg/dL Normal 8.0-22.0 [facility] MAIN Comment on above: Performed By: #### B MP, GFR #### [place] [address] LIVFIBon 07-25-2024 Fasting N No Normal [facility] MAIN Comment on above: Performed By: #### L IP, MG, CMP, GFR, CBC, ADIFF, ANEU #### [place] [address] PROon 07-25-2024 INR Coag (PPP) [Relative time] 1.0 {INR} Normal [facility] MAIN Comment on above: Result Comment: The [employer] (CHEST, 1992, 102:312S-25S) recommended therapeutic range for oral anticoagulant therapy is: LOW RISK: Prophylaxis of venous thrombosis INR: 2.0-3.0 Treatment of pulmonary embolism 2.0-3.0 Prevention of systemic embolism 2.0-3.0 HIGH RISK: Mechanical prosthetic valves 2.5-3.5 Performed By: #### P RO, [id number] #### [place] [address] PT Coag (PPP) [Time] 11.8 s Normal 9.0-14.4 [facility] MAIN Comment on above: Result Comment: Effe ctive 04/04/08, Protime results may be affected by some antibiotics (i.e. Ciprofloxacin, Azithromycin, Bactrim) which may potentiate the action of oral anticoagulants, with further increases in Protime/INR. Performed By: #### P RO, [id number] #### [place] [address] .Auto Diffon 01-04-2024 Basophil, Absolute 0.0 10 3/mcL Normal 0.0-0.2 [facility] ([place]) Comment on above: Performed By: #### A DERIAN, ADIFF, BMP, TROPHS, MDW, CBC, GFR #### [address] [address] Basophils/100 WBC (Bld) 0.5 % Normal 0.0-2.5 [facility] ([place]) Comment on above: Performed By: #### A DERIAN, ADIFF, BMP, TROPHS, MDW, CBC, GFR #### [address] [address] Eosinophil, Absolute 0.1 10 3/mcL Normal 0.0-0.4 [facility] ([place]) Comment on above: Performed By: #### A DERIAN, ADIFF, BMP, TROPHS, MDW, CBC, GFR #### [address] [address] Eosinophils/100 WBC (Bld) 1.1 % Normal 0.0-7.0 [facility] ([place]) Comment on above: Performed By: #### A DERIAN, ADIFF, BMP, TROPHS, MDW, CBC, GFR #### [address] [address] Lymphocyte, Absolute 1.3 10 3/mcL Normal 0.8-3.9 [facility] ([place]) Comment on above: Performed By: #### A DERIAN, ADIFF, BMP, TROPHS, MDW, CBC, GFR #### [address] [address] Lymphocytes/100 WBC (Bld) 17.1 % Normal 10.0-50.0 [facility] ([place]) Comment on above: Performed By: #### A DERIAN, ADIFF, BMP, TROPHS, MDW, CBC, GFR #### [address] [address] Monocyte, Absolute 0.5 10 3/mcL Normal 0.2-1.0 [facility] ([place]) Comment on above: Performed By: #### A DERIAN, ADIFF, BMP, TROPHS, MDW, CBC, GFR #### [address] [address] Monocytes/100 WBC (Bld) 6.3 % Normal 1.7-13.0 [facility] ([place]) Comment on above: Performed By: #### A EZRA MENARD BMP, TROPHS, MDW, CBC, GFR #### [address] [address] Neutrophils/100 WBC (Bld) 75.0 % Normal 37.0-80.0 [facility] ([place]) Comment on above: Performed By: #### A EZRA MENARD BMP, TROPHS, MDW, CBC, GFR #### [address] [address] .GFRon 01-04-2024 GFR 113 ml/min/1.73sqm Normal [facility] ([place]) Comment on above: Result Comment: GFR Population mean for , Non- Americans Ages 20-29 = 116 mL/min/1.73 sq.m. Ages 30-39 = 107 mL/min/1.73 sq.m. Ages 40-49 = 99 mL/min/1.73 sq.m. Ages 50-59 = 93 mL/min/1.73 sq.m. Ages 60-69 = 85 mL/min/1.73 sq.m. Ages 70+ = 75 mL/min/1.73 sq.m. Chronic Kidney Disease: Less than 60 mL/min/1.73 square meters End Stage Renal Disease: Less than 15 mL/min/1.73 square meters Performed By: #### A EZRA MENARD BMP, TROPHS, MDW, CBC, GFR #### [address] [address] GFR Non- 93 ml/min/1.73sqm Normal [facility] ([place]) Comment on above: Result Comment: GFR Population mean for , Non- Americans Ages 20-29 = 116 mL/min/1.73 sq.m. Ages 30-39 = 107 mL/min/1.73 sq.m. Ages 40-49 = 99 mL/min/1.73 sq.m. Ages 50-59 = 93 mL/min/1.73 sq.m. Ages 60-69 = 85 mL/min/1.73 sq.m. Ages 70+ = 75 mL/min/1.73 sq.m. Chronic Kidney Disease: Less than 60 mL/min/1.73 square meters End Stage Renal Disease: Less than 15 mL/min/1.73 square meters Performed By: #### A DERIAN, ADIFF, BMP, TROPHS, MDW, CBC, GFR #### [address] [address] .MDWon 01-04-2024 Monocyte Distribution Width 18.21 Normal 0.00-20.00 [facility] ([place]) Comment on above: Result Comment: For ED adult patients suspected of sepsis, MDW<=20.0 does not rule out sepsis or risk of sepsis Performed By: #### A EZRA MENARD, MARANDA, KATY, MDW, CBC, GFR #### [address] [address] .NEUABSon 01-04-2024 Neutrophil, Absolute 5.6 10 3/mcL Normal 2.9-6.2 [facility] ([place]) Comment on above: Performed By: #### A EZRA MENARD, MARANDA, KATY, W, CBC, GFR #### [address] [address] BMPon 01-04-2024 BUN/Creatinine Ratio 13 ratio Normal 7-27 [facility] ([place]) Comment on above: Performed By: #### A DERIAN ADRISA, MARANDA, KATY, W, CBC, GFR #### [address] [address] Calcium [Mass/Vol] 8.8 mg/dL Normal 8.4-10.2 [facility] ([place]) Comment on above: Performed By: #### A EZRA MENARD, MARANDA, KATY, W, CBC, GFR #### [address] [address] Chloride [Moles/Vol] 97 mmol/L Low 98-107 [facility] ([place]) Comment on above: Performed By: #### A DERIAN, ADIFF, BMP, KATY, MDW, CBC, GFR #### [address] [address] CO2 [Moles/Vol] 26 mmol/L Normal 22-29 [facility] ([place]) Comment on above: Performed By: #### A EZRA MENARD, MARANDA, KATY, W, CBC, GFR #### [address] [address] Creatinine [Mass/Vol] 0.90 mg/dL Normal 0.70-1.30 [facility] ([place]) Comment on above: Performed By: #### A EZRA MENARD, MARANDA, KATY, W, CBC, GFR #### [address] [address] Electrolyte Balance 13.0 mEq/L Normal 4.0-15.0 [facility] ([place]) Comment on above: Performed By: #### A EZRA MENARD, MARANDA, KATY, W, CBC, GFR #### [address] [address] Glucose [Mass/Vol] 176 mg/dL High 70-105 [facility] ([place]) Comment on above: Performed By: #### A EZRA MENARD, MARANDA, KATY, W, CBC, GFR #### [address] [address] Potassium [Moles/Vol] 4.0 mmol/L Normal 3.5-5.1 [facility] ([place]) Comment on above: Performed By: #### A EZRA MENARD, MARANDA, KATY, W, CBC, GFR #### [address] [address] Sodium [Moles/Vol] 136 mmol/L Normal 136-145 [facility] ([place]) Comment on above: Performed By: #### A EZRA MENARD, MARANDA, KATY, MDW, CBC, GFR #### [address] [address] Urea nitrogen [Mass/Vol] 12 mg/dL Normal 7-18 [facility] ([place]) Comment on above: Performed By: #### A DERIAN, ADIFF, BMP, TROPHS, MDW, CBC, GFR #### [address] [address] CBCon 01-04-2024 Erythrocyte distribution width (RBC) [Ratio] 13.1 % Normal 11.5-14.5 [facility] ([place]) Comment on above: Performed By: #### A DERIAN, ADIFF, BMP, TROPHS, MDW, CBC, GFR #### [place] [address] Hematocrit (Bld) [Volume fraction] 46.0 % Normal 42.0-52.0 [facility] ([place]) Comment on above: Performed By: #### A DERIAN, ADIFF, BMP, TROPHS, MDW, CBC, GFR #### [place] [address] Hgb 16.9 G/dL Normal 14.0-18.0 [facility] ([place]) Comment on above: Performed By: #### A DERIAN, ADIFF, BMP, TROPHS, MDW, CBC, GFR #### [place] [address] MCH (RBC) [Entitic mass] 34.1 pg High 27.0-31.2 [facility] ([place]) Comment on above: Performed By: #### A DERIAN, ADIFF, BMP, TROPHS, MDW, CBC, GFR #### [place] [address] MCHC 36.7 G/dL High 31.8-35.4 [facility] ([place]) Comment on above: Performed By: #### A DERIAN, ADIFF, BMP, TROPHS, MDW, CBC, GFR #### [place] [address] MCV (RBC) [Entitic vol] 93.0 fL Normal 80.0-94.0 [facility] ([place]) Comment on above: Performed By: #### A DERIAN, ADIFF, BMP, TROPHS, MDW, CBC, GFR #### [place] [address] Platelet 165 10 3/mcL Normal 130-400 [facility] ([place]) Comment on above: Performed By: #### A EZRA MENARD, MARANDA, KATY, W, CBC, GFR #### [place] [id number] [place], [place] [address] Platelet mean volume (Bld) [Entitic vol] 8.1 fL Normal 7.4-10.4 [facility] ([place]) Comment on above: Performed By: #### A EZRA MENARD, MARANDA, KATY, W, CBC, GFR #### [place] [address] [address] RBC 4.95 10 6/mcL Normal 4.04-6.13 [facility] ([place]) Comment on above: Performed By: #### A EZRA MENARD, MARANDA, KATY, W, CBC, GFR #### [place] [address] WBC 7.4 10 3/mcL Normal 4.6-10.8 [facility] ([place]) Comment on above: Performed By: #### A DERIAN, EZRA, MARANDA, KATY, MDW, CBC, GFR #### [place] [address] LABORATORYOrdered By: SYSTEM SYSTEM on 01-04-2024 Troponin I.cardiac DL <= 0.01 ng/mL [Mass/Vol] 4 ng/L Normal 0 - 76 ng/L AO ADM SS Comment on above: Interpretive Data: H igh Sensitive Troponin I Reference Ranges: Female: 0-51 ng/L Male: 0-76 ng/L Testing performed on [employer] using a homogeneous sandwich chemiluminescent immunoassay based on [employer] technology. Basophil, Absolute 0.0 103/mcL Normal 0.0 - 0.2 10^3/mcL AO Workflow SS Basophils/100 WBC (Bld) 0.5 % Normal 0.0 - 2.5 % AO Workflow SS Calcium [Mass/Vol] 8.8 mg/dL Normal 8.4 - 10. 2 mg/dL AO ADM SS Chloride [Moles/Vol] 97 mmol/L Low 98 - 10 7 mmol/L AO ADM SS CO2 [Moles/Vol] 26 mmol/L Normal 22 - 29 mmol/L AO ADM SS Creatinine [Mass/Vol] 0.90 mg/dL Normal 0.70 - 1.30 mg/dL AO ADM SS Electrolyte Balance 13.0 mEq/L Normal 4.0 - 15 .0 mEq/L AO ADM SS Eosinophil, Absolute 0.1 103/mcL Normal 0.0 - 0 .4 10^3/mcL AO Workflow SS Eosinophils/100 WBC (Bld) 1.1 % Normal 0.0 - 7.0 % AO Workflow SS Erythrocyte distribution width (RBC) [Ratio] 13.1 % Normal 11.5 - 14.5 % AO Workflow SS GFR/1.73 sq M.predicted among blacks MDRD (S/P/Bld) [Vol rate/Area] 113 ml/min/1.73sqm Invalid Interpretation Code AO Chemistry S Comment on above: Interpretive Data: GFR Population mean for , Non- Americans Ages 20-29 = 116 mL/min/1.73 sq.m. Ages 30-39 = 107 mL/min/1.73 sq.m. Ages 40-49 = 99 mL/min/1.73 sq.m. Ages 50-59 = 93 mL/min/1.73 sq.m. Ages 60-69 = 85 mL/min/1.73 sq.m. Ages 70+ = 75 mL/min/1.73 sq.m. Chronic Kidney Disease: Less than 60 mL/min/1.73 square meters End Stage Renal Disease: Less than 15 mL/min/1.73 square meters GFR/1.73 sq M.predicted among non-blacks MDRD (S/P/Bld) [Vol rate/Area] 93 ml/min/1.73sqm Invalid Interpretation Code AO Chemistry S Comment on above: Interpretive Data: GFR Population mean for , Non- Americans Ages 20-29 = 116 mL/min/1.73 sq.m. Ages 30-39 = 107 mL/min/1.73 sq.m. Ages 40-49 = 99 mL/min/1.73 sq.m. Ages 50-59 = 93 mL/min/1.73 sq.m. Ages 60-69 = 85 mL/min/1.73 sq.m. Ages 70+ = 75 mL/min/1.73 sq.m. Chronic Kidney Disease: Less than 60 mL/min/1.73 square meters End Stage Renal Disease: Less than 15 mL/min/1.73 square meters Glucose [Mass/Vol] 176 mg/dL High 70 - 105 mg/dL AO ADM SS Hematocrit (Bld) [Volume fraction] 46.0 % Normal 42.0 - 52.0 % AO Workflow SS Hemoglobin (Bld) [Mass/Vol] 16.9 G/dL Normal 14.0 - 18.0 G/dL AO Workflow SS Lymphocyte, Absolute 1.3 103/mcL Normal 0.8 - 3 .9 10^3/mcL AO Workflow SS Lymphocytes/100 WBC (Bld) 17.1 % Normal 10.0 - 50.0 % AO Workflow SS MCH (RBC) [Entitic mass] 34.1 pg High 27.0 - 31.2 pg AO Workflow SS MCHC 36.7 G/dL High 31.8 - 35.4 G/dL AO Workflow SS MCV (RBC) [Entitic vol] 93.0 fL Normal 80.0 - 94.0 fL AO Workflow SS Monocyte distribution width Auto (Bld) [Entitic vol] 18.21 1 Normal 0.00 - 20.00 AO Workflow SS Comment on above: Result Comment: For ED adult patients suspected of sepsis, MDW<=20.0 does not rule out sepsis or risk of sepsis Monocyte, Absolute 0.5 103/mcL Normal 0.2 - 1.0 10^3/mcL AO Workflow SS Monocytes/100 WBC (Bld) 6.3 % Normal 1.7 - 13.0 % AO Workflow SS Neutrophil, Absolute 5.6 103/mcL Normal 2.9 - 6 .2 10^3/mcL AO Workflow SS Neutrophils/100 WBC (Bld) 75.0 % Normal 37.0 - 80.0 % AO Workflow SS Platelet mean volume (Bld) [Entitic vol] 8.1 fL Normal 7.4 - 10.4 fL AO Workflow SS Platelets (Bld) [#/Vol] 165 103/mcL Normal 130 - 400 10^3/mcL AO Workflow SS Potassium [Moles/Vol] 4.0 mmol/L Normal 3.5 - 5.1 mmol/L AO ADM SS RBC (Bld) [#/Vol] 4.95 106/mcL Normal 4.04 - 6.1 3 10^6/mcL AO Workflow SS Sodium [Moles/Vol] 136 mmol/L Normal 136 - 145 mmol/L AO ADM SS Troponin I.cardiac DL <= 0.01 ng/mL [Mass/Vol] 5 ng/L Normal 0 - 76 ng/L AO ADM SS Comment on above: Interpretive Data: H igh Sensitive Troponin I Reference Ranges: Female: 0-51 ng/L Male: 0-76 ng/L Testing performed on [employer] using a homogeneous sandwich chemiluminescent immunoassay based on [employer] technology. Urea nitrogen [Mass/Vol] 12 mg/dL Normal 7 - 18 mg/dL AO ADM SS Urea nitrogen/Creatinine [Mass ratio] 13 ratio Normal 7 - 27 ratio AO ADM SS WBC (Bld) [#/Vol] 7.4 103/mcL Normal 4.6 - 10.8 10^3/mcL AO Workflow SS TROPHSon 01-04-2024 High Sensitivity Troponin I 4 ng/L Normal 0-76 [facility] ([place]) Comment on above: Result Comment: High Sensitive Troponin I Reference Ranges: Female: 0-51 ng/L Male: 0-76 ng/L Testing performed on [employer] EXL using a homogeneous sandwich chemiluminescent immunoassay based on [employer] technology. Performed By: #### T [facility] #### [address] [address] High Sensitivity Troponin I 5 ng/L Normal 0-76 [facility] ([place]) Comment on above: Result Comment: High Sensitive Troponin I Reference Ranges: Female: 0-51 ng/L Male: 0-76 ng/L Testing performed on [employer] EX[employer] using a homogeneous sandwich chemiluminescent immunoassay based on [employer] technology. Performed By: #### A DERIAN, EZRA, BMP, MD KATYW, CBC, GFR #### [place] [address] [address] XR CHEST 1 VIEWon 01-04-2024 XR CHEST 1 VIEW ORIGINAL EXAMINATION: ONE XRAY VIEW OF THE CHEST01/04/2024 3:42 pm COMPARISON: None. HISTORY: ORDERING SYSTEM PROVIDED HISTORY: Reason for Exam: chest pain FINDINGS: The cardiomediastinal contours are normal. Vascular structures appear within normal limits. There is no consolidation. No pleural fluid or pneumothorax. No aggressive osseous lesions identified. IMPRESSION: No acute radiographic findings. Interpreted by: Darren Santamaria MD Preliminary Report By: Darren Santamaria MD Electronically signed By Darren Santamaria MD Dictated Date: 01/04/2024 3:45:58 PM Prelim Date: 01/04/2024 3:46:21 PM Sign Date: 01/04/2024 3:46:21 PM Ordering Provider: TYRELL NAILS [facility] ([place]) HCGENon 04-24-2023 Hepatitis C Genotype Genotype 1a Abnormal [facility] ([place]) Comment on above: Result Comment: Perf ormed By: [facility] [employer] [address] [place] [address] Financial Analyst: Tao Rodriguez III, M.D. CLIA#: [id number] Performed By: #### A DERIAN, EZRA, BMP, MD KATYW, CBC, GFR #### [place] [id number] [place], [place] [address] XR KNEE THREE VIEWS LEFTon 0 04-24-2023 XR KNEE THREE VIEWS LEFT ORIGINAL EXAMINATION: THREE XRAY VIEWS OF THE LEFT KNEE 04/23/2023 11:25 am COMPARISON: None. HISTORY: ORDERING SYSTEM PROVIDED HISTORY: Reason for Exam: knee pain FINDINGS: No acute fracture or dislocation of left knee is present. There is moderate narrowing of the medial tibiofemoral joint space with mild degenerative spurring at the medial margin of the tibiofemoral joint. The patellofemoral joint space is maintained. Patella has a normal appearance. There is no joint effusion. There are no periarticular calcifications. No foreign body is present in the soft tissue. 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 Interpreted by: Ismael Thurman MD Preliminary Report By: Ismael Thurman MD Electronically signed By Ismael Thurman MD Dictated Date: 04/24/2023 3:49:42 AM Prelim Date: 04/24/2023 3:51:24 AM Sign Date: 04/24/2023 3:51:24 AM Ordering Provider: MACO LEWIS Normal [facility] ([place]) HCQPCRon 04-23-2023 HCQPCR Quant Log Value 6.71 LogCopies/mL High [facility] ([place]) Comment on above: Order Comment: Erica gould noticed that this was ordered by the office 25 minutes after the bloodwork was drawn and you would want a viral load if you were sending out an HCV Genotype, so we activated it and sent it along with the other bloodwork. It doesn't look like accessioning was given a requisition so it wouldn't be labs fault that it was missed.Sendouts [id number] Result Comment: The Linear Range of this assay is 15 IU/ml to 100,000,000 IU/ml Performed By: [facility] [employer] [address] [place] [address] Financial Analyst: Tao Rodriguez III, M.D. CLIA#: [id number] Performed By: #### A EZRA MENARD BMP, TROPHS, MDW, CBC, GFR #### [place] [id number] [place], [place] [address] HCV RNA (IU/mL) [id number] IU/mL High [facility] ([place]) Comment on above: Order Comment: Erica gould noticed that this was ordered by the office 25 minutes after the bloodwork was drawn and you would want a viral load if you were sending out an HCV Genotype, so we activated it and sent it along with the other bloodwork. It doesn't look like accessioning was given a requisition so it wouldn't be labs fault that it was missed.Sendouts [id number] Result Comment: Perf ormed By: [facility] [employer] [address] [place], [place] [id number] Financial Analyst: Tao Rodriguez III, M.D. CLIA#: [id number] Performed By: #### A EZRA MENARD BMP, TROPHS, MDW, CBC, GFR #### [place] [id number] [place], [place] [address] Hepatitis C RNA Detected Abnormal HCV RNA not detected by PCR. [facility] ([place]) Comment on above: Order Comment: Sendkaye gould noticed that this was ordered by the office 25 minutes after the bloodwork was drawn and you would want a viral load if you were sending out an HCV Genotype, so we activated it and sent it along with the other bloodwork. It doesn't look like accessioning was given a requisition so it wouldn't be labs fault that it was missed.Sendouts [id number] Result Comment: Perf ormed By: [facility] [place] [address] Financial Analyst: Tao Rodriguez III, M.D. CLIA#: [id number] Performed By: #### A EZRA MENARD BMP, TROPHS, MDW, CBC, GFR #### [address] [address] RFon 04-23-2023 Rheumatoid Factor <6.0 Normal <=5.9 [facility] ([place]) Comment on above: Result Comment: RF I gM Antibody by Enzyme Immunoassay: Negative < or = 6 Positive > 6 A positive result indicates the presence of RF antibodies and suggests the possibility of rheumatoid arthritis. A negative result indicates no RF IgM antibody or levels below the negative cut-off of the assay. Results of this assay should be used in conjunction with clinical findings and other serological tests. These results were obtained with the [employer] QUANTA Lite RF IgM MÓNICA. RF IgM values obtained with different manufacturers' assay methods may not be used interchangeably. The magnitude of the reported IgM levels cannot be correlated to an endpoint titer. Performed By: #### A EZRA MENARD BMP, TROPHS, MDW, CBC, GFR #### [address] [address] .GFRon 04-22-2023 GFR >60 Normal [facility] ([place]) Comment on above: Result Comment: GFR Population mean for , Non- Americans Ages 20-29 = 116 mL/min/1.73 sq.m. Ages 30-39 = 107 mL/min/1.73 sq.m. Ages 40-49 = 99 mL/min/1.73 sq.m. Ages 50-59 = 93 mL/min/1.73 sq.m. Ages 60-69 = 85 mL/min/1.73 sq.m. Ages 70+ = 75 mL/min/1.73 sq.m. Chronic Kidney Disease: Less than 60 mL/min/1.73 square meters End Stage Renal Disease: Less than 15 mL/min/1.73 square meters Performed By: #### A EZRA MENARD BMP, NESTOR BURNS, CBC, GFR #### [address] [address] GFR Non- >60 Normal [facility] ([place]) Comment on above: Result Comment: GFR Population mean for , Non- Americans Ages 20-29 = 116 mL/min/1.73 sq.m. Ages 30-39 = 107 mL/min/1.73 sq.m. Ages 40-49 = 99 mL/min/1.73 sq.m. Ages 50-59 = 93 mL/min/1.73 sq.m. Ages 60-69 = 85 mL/min/1.73 sq.m. Ages 70+ = 75 mL/min/1.73 sq.m. Chronic Kidney Disease: Less than 60 mL/min/1.73 square meters End Stage Renal Disease: Less than 15 mL/min/1.73 square meters Performed By: #### A EZRA MENARD BMP, TROPHS, MDW, CBC, GFR #### [address] [address] A1Con 04-22-2023 HbA1c (Bld) [Mass fraction] 5.4 % Normal 4.0-6.0 [facility] ([place]) Comment on above: Performed By: #### A EZRA MENARD BMP, TROPHS, MDW, CBC, GFR #### [address] [address] ANAon 04-22-2023 Nuclear Ab IF (S) [Titer] 40 {titer} Normal Neg 40 [facility] ([place]) Comment on above: Result Comment: MATTHEW Screen and Titer methodology is an immunofluorescent technique utilizing Hep2 Substrate. Performed By: #### A EZRA MENARD BMP, TROPHS, MDW, CBC, GFR #### [address] [address] CMPon 04-22-2023 Albumin Level 4.1 G/dL Normal 3.2-4.8 [facility] ([place]) Comment on above: Performed By: #### A EZRA MENARD BMP, TROPHS, MDW, CBC, GFR #### [address] [address] Albumin/Globulin [Mass ratio] 1.2 {ratio} Normal 0.9-1.6 [facility] ([place]) Comment on above: Performed By: #### A EZRA MENARD BMP, TROPHS, MDW, CBC, GFR #### [address] [address] ALP [Catalytic activity/Vol] 97 U/L Normal 38-126 [facility] ([place]) Comment on above: Performed By: #### A EZRA MENARD BMP, TROPHS, MDW, CBC, GFR #### [address] [address] ALT [Catalytic activity/Vol] 56 U/L High 12-55 [facility] ([place]) Comment on above: Performed By: #### A EZRA MENARD BMP, TROPHS, MDW, CBC, GFR #### [address] [address] AST [Catalytic activity/Vol] 31 U/L Normal 8-34 [facility] ([place]) Comment on above: Performed By: #### A EZRA MENARD BMP, TROPHS, MDW, CBC, GFR #### [address] [address] Bili Total 0.80 mg/dL Normal 0.20-1.20 [facility] ([place]) Comment on above: Result Comment: Use of this assay is not recommended for patients undergoing treatment with eltrombopag due to the potential for falsely elevated results. Performed By: #### A EZRA MENARD BMP, TROPHS, MDW, CBC, GFR #### [address] [address] BUN/Creatinine Ratio 24.1 ratio High 10.0-22.0 [facility] ([place]) Comment on above: Performed By: #### A EZRA MENARD BMP, TROPHS, MDW, CBC, GFR #### [address] [address] Calcium [Mass/Vol] 9.2 mg/dL Normal 8.7-10.4 [facility] ([place]) Comment on above: Performed By: #### A EZRA MENARD BMP, TROPHS, MDW, CBC, GFR #### [address] [address] Chloride [Moles/Vol] 105 mmol/L Normal 98-110 [facility] ([place]) Comment on above: Performed By: #### A DERIAN, EZRA, MARANDA, KATY, W, CBC, GFR #### [address] [address] CO2 [Moles/Vol] 26 mmol/L Normal 22-32 [facility] ([place]) Comment on above: Performed By: #### A DERIAN, EZRA, MARANDA, KATY, W, CBC, GFR #### [address] [address] Creatinine [Mass/Vol] 0.79 mg/dL Normal 0.60-1.40 [facility] ([place]) Comment on above: Performed By: #### A EZRA MENARD, MARANDA, KATY, W, CBC, GFR #### [address] [address] Electrolyte Balance 9.0 mEq/L Normal 4.0-15.0 [facility] ([place]) Comment on above: Performed By: #### A EZRA MENARD, MARANDA, KATY, W, CBC, GFR #### [address] [address] Globulin 3.3 G/dL Normal 1.5-3.8 [facility] ([place]) Comment on above: Performed By: #### A EZRA MENARD, MARANDA, KATY, W, CBC, GFR #### [address] [address] Glucose [Mass/Vol] 116 mg/dL High 70-110 [facility] ([place]) Comment on above: Performed By: #### A EZRA MENARD, MARANDA, KATY, MDW, CBC, GFR #### [address] [address] Potassium [Moles/Vol] 4.5 mmol/L Normal 3.5-5.0 [facility] ([place]) Comment on above: Performed By: #### A EZRA MENARD BMP, NESTOR BURNS, CBC, GFR #### [address] [address] Sodium [Moles/Vol] 140 mmol/L Normal 136-145 [facility] ([place]) Comment on above: Performed By: #### A EZRA MENARD, MARANDA, NESTOR BURNS, CBC, GFR #### [address] [address] Total Protein 7.4 G/dL Normal 5.7-8.2 [facility] ([place]) Comment on above: Result Comment: No te - New Reference Range in effect 20 Performed By: #### A EZRA MENARD, MARANDA, NESTOR BURNS, CBC, GFR #### [address] [address] Urea nitrogen [Mass/Vol] 19.0 mg/dL Normal 8.0-22.0 [facility] ([place]) Comment on above: Performed By: #### A EZRA MENARD BMP, NESTOR BURNS, CBC, GFR #### [address] [address] CRPon 04-22-2023 CRP [Mass/Vol] mg/L Normal 0.0-1.0 [facility]) Comment on above: Result Comment: No te - New Reference Range in effect 20 Performed By: #### A EZRA MENARD BMP, TROPHS, MDW, CBC, GFR #### [address] [address] ESRon 04-22-2023 Erythrocyte Sed Rate 4 mm/hr Normal 0-15 [facility] ([place]) Comment on above: Performed By: #### A EZRA MENARD BMP, NESTOR BURNS, CBC, GFR #### [address] [address] HCVon 04-22-2023 Hep C Ab Reactive Abnormal Non-Reactive [facility] ([place]) Comment on above: Performed By: #### A EZRA MENARD BMP, TROPHS, MDW, CBC, GFR #### [address] [address] Hep C Ab Int Normal [facility] ([place]) Comment on above: Result Comment: Reac tive: Samples with a value >/= 1.00 index are considered reactive for IgG antibodies to HCV. The presence of anti-HCV may be indicative of recent and/or past infection by Hepatitis C Virus. PATIENT MAY BE INFECTIONS. PLEASE INFORM MANAGING COGNITIVE ENGINEER. Supplemental testing for HCV RNA may detect the presence of active HCV infection. This result is a reportable disease Infection Control has been notified. See Interp Performed By: #### A EZRA MENARD BMP, TROPHS, MDW, CBC, GFR #### [address] [address] LIPIDon 04-22-2023 Cholesterol [Mass/Vol] 139 mg/dL Normal 50-199 [facility] ([place]) Comment on above: Result Comment: Chol esterol Reference Interval: Less than 200 Desirable 200-239 Borderline high risk 240 and above High risk Performed By: #### A EZRA MENARD BMP, TROPHS, MDW, CBC, GFR #### [address] [address] Cholesterol in HDL [Mass/Vol] 31 mg/dL Low 40-59 [facility] ([place]) Comment on above: Performed By: #### A EZRA MENARD BMP, TROPHS, MDW, CBC, GFR #### [address] [address] Cholesterol in LDL [Mass/Vol] 84 mg/dL Normal 0-129 [facility] ([place]) Comment on above: Performed By: #### A EZRA MENARD BMP, TROPHS, MDW, CBC, GFR #### [id number] [place], [place] [address] Triglyceride [Mass/Vol] 119 mg/dL Normal 3-149 [facility] ([place]) Comment on above: Performed By: #### A EZRA MENARD BMP, TROPHS, MDW, CBC, GFR #### [address] [address] TSHon 04-22-2023 TSH 2.128 mIU/mL Normal 0.550-4.780 [facility] ([place]) Comment on above: Result Comment: No te - New Reference Range in effect 20 Performed By: #### A EZRA MENARD BMP, NESTOR BURNS, CBC, GFR #### [address] [address] VIDHon 04-22-2023 Vit. D 25-Hydroxy 26.1 ng/mL Normal [facility] ([place]) Comment on above: Result Comment: Inte rpretive Values Based on Total 25(OH)D: Severe Deficiency <20 ng/mL Mild to Moderate Deficiency 20-30 ng/mL Optimum Levels 30-100 ng/mL Toxicity Possible >100 ng/mL Performed By: #### A EZRA MENARD BMP, NESTOR BURNS, CBC, GFR #### [address] [address] .Auto Diffon 04-06-2023 Basophil, Absolute 0.0 10 3/mcL Normal 0.0-0.2 [facility] ([place]) Comment on above: Performed By: #### A EZRA MENARD BMP, TROPHS, MDW, CBC, GFR #### [address] [address] Basophils/100 WBC (Bld) 0.5 % Normal 0.0-2.5 [facility] ([place]) Comment on above: Performed By: #### A EZRA MENARD BMP, TROPHS, MDW, CBC, GFR #### [address] [address] Eosinophil, Absolute 0.0 10 3/mcL Normal 0.0-0.4 [facility] ([place]) Comment on above: Performed By: #### A EZRA MENARD, MARANDA, NESTOR BURNS, CBC, GFR #### [address] [address] Eosinophils/100 WBC (Bld) 0.2 % Normal 0.0-7.0 [facility] ([place]) Comment on above: Performed By: #### A DERIAN, ADIFF, BMP, KATY, MDW, CBC, GFR #### [address] [address] Lymphocyte, Absolute 1.4 10 3/mcL Normal 0.8-3.9 [facility] ([place]) Comment on above: Performed By: #### A DERIAN, ADIFF, BMP, TROPHS, MDW, CBC, GFR #### [address] [address] Lymphocytes/100 WBC (Bld) 14.3 % Normal 10.0-50.0 [facility] ([place]) Comment on above: Performed By: #### A DERIAN, ADIFF, BMP, CRISTINAS, MDW, CBC, GFR #### [address] [address] Monocyte, Absolute 0.5 10 3/mcL Normal 0.2-1.0 [facility] ([place]) Comment on above: Performed By: #### A DERIAN, ADIFF, BMP, CRISTINAS, MDW, CBC, GFR #### [address] [address] Monocytes/100 WBC (Bld) 5.6 % Normal 1.7-13.0 [facility] ([place]) Comment on above: Performed By: #### A DERIAN, ADIFF, BMP, TROPHS, MDW, CBC, GFR #### [address] [address] Neutrophils/100 WBC (Bld) 79.4 % Normal 37.0-80.0 [facility] ([place]) Comment on above: Performed By: #### A DERIAN, ADIFF, BMP, KATY, MDW, CBC, GFR #### [address] [address] .GFRon 04-06-2023 GFR Non- 92 ml/min/1.73sqm Normal [facility] ([place]) Comment on above: Result Comment: GFR Population mean for , Non- Americans Ages 20-29 = 116 mL/min/1.73 sq.m. Ages 30-39 = 107 mL/min/1.73 sq.m. Ages 40-49 = 99 mL/min/1.73 sq.m. Ages 50-59 = 93 mL/min/1.73 sq.m. Ages 60-69 = 85 mL/min/1.73 sq.m. Ages 70+ = 75 mL/min/1.73 sq.m. Chronic Kidney Disease: Less than 60 mL/min/1.73 square meters End Stage Renal Disease: Less than 15 mL/min/1.73 square meters Performed By: #### G FR, CMP #### [address] [address] GFR 112 ml/min/1.73sqm Normal [facility] ([place]) Comment on above: Result Comment: GFR Population mean for , Non- Americans Ages 20-29 = 116 mL/min/1.73 sq.m. Ages 30-39 = 107 mL/min/1.73 sq.m. Ages 40-49 = 99 mL/min/1.73 sq.m. Ages 50-59 = 93 mL/min/1.73 sq.m. Ages 60-69 = 85 mL/min/1.73 sq.m. Ages 70+ = 75 mL/min/1.73 sq.m. Chronic Kidney Disease: Less than 60 mL/min/1.73 square meters End Stage Renal Disease: Less than 15 mL/min/1.73 square meters Performed By: #### G , CMP #### [address] [address] .MDWon 04-06-2023 Monocyte Distribution Width 15.77 Normal 0.00-20.00 [facility] ([place]) Comment on above: Result Comment: For ED adult patients suspected of sepsis, MDW<=20.0 does not rule out sepsis or risk of sepsis Performed By: #### A DERIAN, EZRA, BMP, TROPHS, MDW, CBC, GFR #### [address] [address] .NEUABSon 04-06-2023 Neutrophil, Absolute 7.6 10 3/mcL High 2.9-6.2 [facility] ([place]) Comment on above: Performed By: #### A EZRA MENARD, MARANDA, NESTOR BURNS, CBC, GFR #### [address] [address] CBCon 04-06-2023 Erythrocyte distribution width (RBC) [Ratio] 12.5 % Normal 11.5-14.5 [facility] ([place]) Comment on above: Performed By: #### A EZRA MENARD, MARANDA, KATY, W, CBC, GFR #### [address] [address] Hematocrit (Bld) [Volume fraction] 49.0 % Normal 42.0-52.0 [facility] ([place]) Comment on above: Performed By: #### A EZRA MENARD, MARANDA, KATY, W, CBC, GFR #### [address] [address] Hgb 17.1 G/dL Normal 14.0-18.0 [facility] ([place]) Comment on above: Performed By: #### A EZRA MENARD, MARANDA, KATY, NESTOR, CBC, GFR #### [address] [address] MCH (RBC) [Entitic mass] 31.1 pg Normal 27.0-31.2 [facility] ([place]) Comment on above: Performed By: #### A EZRA MENARD, MARANDA, MD KATYW, CBC, GFR #### [address] [address] MCHC 35.0 G/dL Normal 31.8-35.4 [facility] ([place]) Comment on above: Performed By: #### A EZRA MENARD, MARANDA, KATY, W, CBC, GFR #### [address] [address] MCV (RBC) [Entitic vol] 88.9 fL Normal 80.0-94.0 [facility] ([place]) Comment on above: Performed By: #### A EZRA MENARD, MARANDA, KATY, W, CBC, GFR #### [address] [address] Platelet 218 10 3/mcL Normal 130-400 [facility] ([place]) Comment on above: Performed By: #### A DERIAN, EZRA, MARANDA, KATY, MDW, CBC, GFR #### [address] [address] Platelet mean volume (Bld) [Entitic vol] 7.7 fL Normal 7.4-10.4 [facility] ([place]) Comment on above: Performed By: #### A DERIAN, EZRA, MARANDA, KATY, W, CBC, GFR #### [address] [address] RBC 5.51 10 6/mcL Normal 4.04-6.13 [facility] ([place]) Comment on above: Performed By: #### A DERIAN, EZRA, MARANDA, KATY, W, CBC, GFR #### [address] [address] WBC 9.6 10 3/mcL Normal 4.6-10.8 [facility] ([place]) Comment on above: Performed By: #### A EZRA MENARD, MARANDA, KATY, W, CBC, GFR #### [address] [address] CMPon 04-06-2023 Albumin Level 4.7 G/dL Normal 3.5-5.0 [facility] ([place]) Comment on above: Performed By: #### G , CMP #### [address] [address] Albumin/Globulin [Mass ratio] 1.0 {ratio} Low 1.1-2.5 [facility] ([place]) Comment on above: Performed By: #### Manisha MORENO, CMP #### [address] [address] ALP [Catalytic activity/Vol] 123 U/L Normal 40-135 [facility] ([place]) Comment on above: Performed By: #### Manisha MORENO, CMP #### [address] [address] ALT [Catalytic activity/Vol] 54 U/L Normal 16-63 [facility] ([place]) Comment on above: Performed By: #### G , CMP #### [address] [address] AST [Catalytic activity/Vol] 24 U/L Normal 10-40 [facility] ([place]) Comment on above: Performed By: #### G , CMP #### [address] [address] Bili Total 0.5 mg/dL Normal 0.2-1.0 [facility] ([place]) Comment on above: Result Comment: Use of this assay is not recommended for patients undergoing treatment with eltrombopag due to the potential for falsely elevated results. Performed By: #### Manisha MORENO, CMP #### [address] [address] BUN/Creatinine Ratio 20 ratio Normal 7-27 [facility] ([place]) Comment on above: Performed By: #### G , CMP #### [address] [address] Calcium [Mass/Vol] 9.5 mg/dL Normal 8.4-10.2 [facility] ([place]) Comment on above: Performed By: #### G , CMP #### [address] [address] Chloride [Moles/Vol] 98 mmol/L Normal 98-107 [facility] ([place]) Comment on above: Performed By: #### G FR, CMP #### [address] [address] CO2 [Moles/Vol] 29 mmol/L Normal 22-29 [facility] ([place]) Comment on above: Performed By: #### G FR, CMP #### [address] [address] Creatinine [Mass/Vol] 0.91 mg/dL Normal 0.70-1.30 [facility] ([place]) Comment on above: Performed By: #### G , CMP #### [address] [address] Electrolyte Balance 10.0 mEq/L Normal 4.0-15.0 [facility] ([place]) Comment on above: Performed By: #### G , CMP #### [address] [address] Globulin 4.5 G/dL Normal [facility] ([place]) Comment on above: Performed By: #### Manisha MORENO, CMP #### [facility] [address] [address] Glucose [Mass/Vol] 156 mg/dL High 70-105 [facility] ([place]) Comment on above: Performed By: #### Manisha MORENO, CMP #### [address] [address] Potassium [Moles/Vol] 4.5 mmol/L Normal 3.5-5.1 [facility] ([place]) Comment on above: Performed By: #### Manisha MORENO, CMP #### [address] [address] Sodium [Moles/Vol] 137 mmol/L Normal 136-145 [facility] ([place] Comment on above: Performed By: #### Manisha MORENO, CMP #### [address] [address] Total Protein 9.2 G/dL High 6.4-8.2 [facility] ([place]) Comment on above: Performed By: #### Manisha MORENO, CMP #### [facility] [address] [address] Urea nitrogen [Mass/Vol] 18 mg/dL Normal 7-18 [facility] ([place]) Comment on above: Performed By: #### Manisha MORENO, CMP #### [facility] [address] [address] LABORATORYOrdered By: SYSTEM SYSTEM on 04-06-2023 Albumin BCP dye [Mass/Vol] 4.7 G/dL Invalid Interpretation Code 3.5 - 5.0 G/dL AO ADM SS Albumin/Globulin [Mass ratio] 1.0 {ratio} Invalid Interpretation Code 1.1 - 2.5 ratio AO ADM SS ALP [Catalytic activity/Vol] 123 U/L Invalid Interpretation Code 40 - 135 U/L AO ADM SS ALT With P-5'-P [Catalytic activity/Vol] 54 U/L Invalid Interpretation Code 16 - 63 U/L AO ADM SS AST With P-5'-P [Catalytic activity/Vol] 24 U/L Invalid Interpretation Code 10 - 40 U/L AO ADM SS Basophil, Absolute 0.0 103/mcL Invalid Interpretation Code 0.0 - 0.2 10^3/mcL AO Workflow SS Basophils/100 WBC (Bld) 0.5 % Invalid Interpretation Code 0.0 - 2.5 % AO Workflow SS Bilirubin [Mass/Vol] 0.5 mg/dL Invalid Interpretation Code 0.2 - 1.0 mg/dL AO ADM SS Calcium [Mass/Vol] 9.5 mg/dL Invalid Interpretation Code 8.4 - 10.2 mg/dL AO ADM SS Chloride [Moles/Vol] 98 mmol/L Invalid Interpretation Code 98 - 107 mmol/L AO ADM SS CO2 [Moles/Vol] 29 mmol/L Invalid Interpretation Code 22 - 29 mmol/L AO ADM SS Creatinine [Mass/Vol] 0.91 mg/dL Invalid Interpretation Code 0.70 - 1.30 mg/dL AO ADM SS Electrolyte Balance 10.0 mEq/L Invalid Interpretation Code 4.0 - 15.0 mEq/L AO ADM SS Eosinophil, Absolute 0.0 103/mcL Invalid Interpretation Code 0.0 - 0.4 10^3/mcL AO Workflow SS Eosinophils/100 WBC (Bld) 0.2 % Invalid Interpretation Code 0.0 - 7.0 % AO Workflow SS Erythrocyte distribution width (RBC) [Ratio] 12.5 % Invalid Interpretation Code 11.5 - 14.5 % AO Workflow SS GFR/1.73 sq M.predicted among blacks MDRD (S/P/Bld) [Vol rate/Area] 112 ml/min/1.73sqm Invalid Interpretation Code AO Chemistry S GFR/1.73 sq M.predicted among non-blacks MDRD (S/P/Bld) [Vol rate/Area] 92 ml/min/1.73sqm Invalid Interpretation Code AO Chemistry S Globulin 4.5 G/dL Invalid Interpretation Code AO ADM SS Glucose [Mass/Vol] 156 mg/dL Invalid Interpretation Code 70 - 105 mg/dL AO ADM SS Hematocrit (Bld) [Volume fraction] 49.0 % Invalid Interpretation Code 42.0 - 52.0 % AO Workflow SS Hemoglobin (Bld) [Mass/Vol] 17.1 G/dL Invalid Interpretation Code 14.0 - 18.0 G/dL AO Workflow SS Lymphocyte, Absolute 1.4 103/mcL Invalid Interpretation Code 0.8 - 3.9 10^3/mcL AO Workflow SS Lymphocytes/100 WBC (Bld) 14.3 % Invalid Interpretation Code 10.0 - 50.0 % AO Workflow SS MCH (RBC) [Entitic mass] 31.1 pg Invalid Interpretation Code 27.0 - 31.2 pg AO Workflow SS MCHC 35.0 G/dL Invalid Interpretation Code 31.8 - 35.4 G/dL AO Workflow SS MCV (RBC) [Entitic vol] 88.9 fL Invalid Interpretation Code 80.0 - 94.0 fL AO Workflow SS Monocyte distribution width Auto (Bld) [Entitic vol] 15.77 Invalid Interpretation Code 0.00 - 20.00 AO Workflow SS Comment on above: Result Comment: For ED adult patients suspected of sepsis, MDW<=20.0 does not rule out sepsis or risk of sepsis Monocyte, Absolute 0.5 103/mcL Invalid Interpretation Code 0.2 - 1.0 10^3/mcL AO Workflow SS Monocytes/100 WBC (Bld) 5.6 % Invalid Interpretation Code 1.7 - 13.0 % AO Workflow SS Neutrophil, Absolute 7.6 103/mcL Invalid Interpretation Code 2.9 - 6.2 10^3/mcL AO Workflow SS Neutrophils/100 WBC (Bld) 79.4 % Invalid Interpretation Code 37.0 - 80.0 % AO Workflow SS Platelet mean volume (Bld) [Entitic vol] 7.7 fL Invalid Interpretation Code 7.4 - 10.4 fL AO Workflow SS Platelets (Bld) [#/Vol] 218 103/mcL Invalid Interpretation Code 130 - 400 10^3/mcL AO Workflow SS Potassium [Moles/Vol] 4.5 mmol/L Invalid Interpretation Code 3.5 - 5.1 mmol/L AO ADM SS Protein [Mass/Vol] 9.2 G/dL Invalid Interpretation Code 6.4 - 8.2 G/dL AO ADM SS RBC (Bld) [#/Vol] 5.51 106/mcL Invalid Interpretation Code 4.04 - 6.13 10^6/mcL AO Workflow SS Sodium [Moles/Vol] 137 mmol/L Invalid Interpretation Code 136 - 145 mmol/L AO ADM SS Urea nitrogen [Mass/Vol] 18 mg/dL Invalid Interpretation Code 7 - 18 mg/dL AO ADM SS Urea nitrogen/Creatinine [Mass ratio] 20 ratio Invalid Interpretation Code 7 - 27 ratio AO ADM SS WBC (Bld) [#/Vol] 9.6 103/mcL Invalid Interpretation Code 4.6 - 10.8 10^3/mcL AO Workflow SS No Panel Informationon 04-06 Microscopic examination of blood, culture Culture has been received in lab and is no growth to date. Routine cultures are held for 5 days. [facility] LIVER 08-04-2019 Albumin [Mass/Vol] 4.4 g/dL Normal 3.2-5.0 [facility] Comment on above: Performed By: #### L [id number] #### [facility] [address] [place] [address] Albumin/Globulin [Mass ratio] 1.2 {ratio} Normal 0.8-2.0 [facility] Comment on above: Performed By: #### L [id number] #### [facility] [address] [place] [address] ALK PHOS 86 U/L Normal 45-117 [facility] Comment on above: Performed By: #### L [id number] #### [facility] [address] [place] [address] ALT [Catalytic activity/Vol] 85 U/L High 13-61 [facility] Comment on above: Result Comment: RESU LTS MAY BE FALSELY DEPRESSED AFTER THE ADMINISTRATION OF SULFASALAZINE AND/OR SULFAPYRIDINE. Performed By: #### L [id number] #### [facility] [address] [place], [place] [id number] BILI DIRECT 0.17 MG/DL Normal 0.00-0.20 [facility] Comment on above: Performed By: #### L [id number] #### [facility] [address] [place] [address] BILI TOTAL 0.7 MG/DL Normal 0.2-1.0 [facility] Comment on above: Performed By: #### L [id number] #### [facility] [address] [place], [place] [id number] Globulin (S) [Mass/Vol] 3.6 g/dL Normal 2.2-4.2 [facility] Comment on above: Performed By: #### L [id number] #### [facility] [address] [place], [place] [id number] Protein [Mass/Vol] 8.0 g/dL Normal 6.0-8.5 [facility] Comment on above: Performed By: #### L [id number] #### [facility] [address] [place], [place] [id number] SGOT (AST) 35 U/L High 8-34 [facility] Comment on above: Result Comment: RESU LTS MAY BE FALSELY DEPRESSED AFTER THE ADMINISTRATION OF SULFASALAZINE AND/OR SULFAPYRIDINE. Performed By: #### L [id number] #### [facility] [address] [place] [address] Vital Signs Date Time Vital Sign Value Performing Clinician Faci lity 08-18-2024 16:44-0500 Diastolic Blood Pressure Non-Invasive 85 mm[Hg] DR CARLOS RAMOS MD [facility] 08-18-2024 16:44-0500 Heart rate 65 /min DR CARLOS RAMOS MD [facility] 08-18-2024 16:44-0500 Respiratory rate 16 /min DR CARLOS RAMOS MD [facility] 08-18-2024 16:44-0500 Systolic Blood Pressure Non-Invasive 121 mm[Hg] DR CARLOS RAMOS MD [facility] 08-18-2024 15:49-0500 Diastolic Blood Pressure Non-Invasive 89 mm[Hg] DR CARLOS RAMOS MD [facility] 08-18-2024 15:49-0500 Heart rate 63 /min DR CARLOS RAMOS MD [facility] 08-18-2024 15:49-0500 Respiratory rate 16 /min DR CARLOS RAMOS MD [facility] 08-18-2024 15:49-0500 Systolic Blood Pressure Non-Invasive 129 mm[Hg] DR CARLOS RAMOS MD [facility] 08-18-2024 14:49-0500 Body height 190.[address] CARLOS RAMOS MD [facility] 08-18-2024 14:49-0500 Body temperature 98.42 [degF] DR CARLOS RAMOS MD [facility] 08-18-2024 14:49-0500 Body weight [address] CARLOS RAMOS MD [facility] 08-18-2024 14:49-0500 Diastolic Blood Pressure Non-Invasive 104 mm[Hg] DR CARLOS RAMOS MD [facility] 08-18-2024 14:49-0500 Heart rate 80 /min DR CARLOS RAMOS MD [facility] 08-18-2024 14:49-0500 Respiratory rate 16 /min DR CARLOS RAMOS MD [facility] 08-18-2024 14:49-0500 Systolic Blood Pressure Non-Invasive 149 mm[Hg] DR CARLOS RAMOS MD [facility] 01-04-2024 17:27-0400 Diastolic Blood Pressure Non-Invasive 87 mm[Hg] DR TYRELL NAILS MD [facility] 01-04-2024 17:27-0400 Heart rate 72 /min DR TYRELL NAILS MD [facility] 01-04-2024 17:27-0400 Reason For Taking VItal Signs DR TYRELL NAILS MD [facility] 01-04-2024 17:27-0400 Respiratory rate 16 /min DR TYRELL NAILS MD [facility] 01-04-2024 17:27-0400 Systolic Blood Pressure Non-Invasive 148 mm[Hg] DR TYRELL NAILS MD [facility] 01-04-2024 16:11-0400 Diastolic Blood Pressure Non-Invasive 100 mm[Hg] DR TYRELL NAILS MD [facility] 01-04-2024 16:11-0400 Heart rate 75 /min DR TYRELL NAILS MD [facility] 01-04-2024 16:11-0400 Reason For Taking VItal Signs DR TYRELL NAILS MD [facility] 01-04-2024 16:11-0400 Respiratory rate 18 /min DR TYRELL NAILS MD [facility] 01-04-2024 16:11-0400 Systolic Blood Pressure Non-Invasive 143 mm[Hg] DR TYRELL NAILS MD [facility] 01-04-2024 15:18-0400 Diastolic Blood Pressure Non-Invasive 112 mm[Hg] DR TYRELL NAILS MD [facility] 01-04-2024 15:18-0400 Heart rate 85 /min DR TYRELL NAILS MD [facility] 01-04-2024 15:18-0400 Systolic Blood Pressure Non-Invasive 176 mm[Hg] DR TYRELL NAILS MD [facility] 01-04-2024 14:41-0400 Body temperature 96.44 [degF] DR TYRELL NAILS MD [facility] 01-04-2024 14:41-0400 Body weight [address] TYRELL NAILS MD [facility] 01-04-2024 14:41-0400 Heart rate 91 /min DR TYRELL NAILS MD [facility] 01-04-2024 14:41-0400 Respiratory rate 18 /min DR TYRELL NAILS MD [facility] 04-06-2023 17:42-0400 Blood Pressure Cuff Size NIKOS THADKA DO [facility] 04-06-2023 17:42-0400 Blood Pressure Location NIKOS DURESKA DO [facility] 04-06-2023 17:42-0400 Blood Pressure Method NIKOS DURESKA DO [facility] 04-06-2023 17:42-0400 Body temperature 98.24 [degF] NIKOS DURESKA DO [facility] 04-06-2023 17:42-0400 Body weight 113.6 kg NIKOS DURESKA DO [facility] 04-06-2023 17:42-0400 Diastolic Blood Pressure Non-Invasive 101 1 NIKOS DURESKA DO [facility] 04-06-2023 17:42-0400 Heart rate 76 /min NIKOS DURESKA DO [facility] 04-06-2023 17:42-0400 Respiratory rate 18 /min NIKOS DURESKA DO [facility] 04-06-2023 17:42-0400 Systolic Blood Pressure Non-Invasive 158 1 NIKOS DURESKA DO [facility] 09-30-2022 11:19-0500 Body temperature 97.16 [degF] ANGELA REICHFIELD DO [facility] 09-30-2022 11:19-0500 Diastolic Blood Pressure Non-Invasive 88 1 ANGELA REICHFIELD DO [facility] 09-30-2022 11:19-0500 Heart rate 70 /min ANGELA REICHFIELD DO [facility] 09-30-2022 11:19-0500 Respiratory rate 18 /min ANGELA REICHFIELD DO [facility] 09-30-2022 11:19-0500 Systolic Blood Pressure Non-Invasive 142 1 ANGELA REICHFIELD DO [facility] Encounters Encounter Date Encounter Type Care Provider Facility Start: 06-23-2025 End: 06-23-2025 ambulatory KANWAL COKER MD Facility:[facility] Start: 06-23-2025 End: 06-23-2025 Patient encounter procedure KANWAL COKER MD [facility] Start: 06-16-2025 End: 06-16-2025 ambulatory RHONDA Kelin [employer] Facility:[facility] Start: 06-10-2025 End: 06-10-2025 ambulatory KANWAL COKER MD Facility:[facility] Start: 06-10-2025 End: 06-10-2025 Patient encounter procedure RHONDABrayden MONTENEGRO [employer] [facility] Start: 05-30-2025 End: 05-30-2025 ambulatory RHONDA Kelin [employer] Facility:[facility] Start: 05-30-2025 End: 05-30-2025 Patient encounter procedure RHONDA Kelin YAÑEZLAN [employer] [facility] Start: 03-15-2025 End: 03-15-2025 ambulatory KANWAL COKER MD Facility:A Start: 01-26-2025 End: 01-26-2025 ambulatory PANCHOLIANNE ROSEL [employer] Facility:[facility] Start: 08-18-2024 End: 08-18-2024 Emergency department patient visit DR CARLOS RAMOS MD [facility] Start: 08-03-2024 ambulatory Allyson French ty:[facility] Start: 07-25-2024 End: 07-25-[address] ALLYSON LEARY MD Facility:[facility] Start: 07-05-2024 ambulatory DARBY BRUMFIELD DO Fa cility:[facility] Start: 05-31-2024 ambulatory MACO LEWIS MD Fa cility:A Start: 05-14-2024 ambulatory Allyson French ty:[facility] Start: 04-07-2024 ambulatory Wenceslao Ziegler RPh [facility] Start: 04-07-2024 Follow-up encounter Wenceslao Ziegler RPh [facility] Comment on above: [facility] Hepatology - Fol low-up (HCV + result) Start: 01-04-2024 End: 01-04-2024 Emergency department patient visit DR TYRELL NAILS MD Facility:[facility] Start: 01-04-2024 End: 01-04-2024 Emergency department patient visit DR TYRELL NAILS MD [facility] Start: 04-23-2023 End: 04-24-2023 ambulatory MACO LEWIS MD Facility:[facility] Start: 04-21-2023 End: 04-26-2023 ambulatory MACO LEWIS MD Facility:[facility] Start: 04-06-2023 End: 04-06-2023 Emergency department patient visit NIKOS MACK DO Facility:[facility] Start: 04-06-2023 End: 04-06-2023 Emergency department patient visit NIKOS MACK DO [facility] Start: 09-30-2022 End: 09-30-2022 Emergency department patient visit ANGELA REJHONATAN [facility] Procedures Date Procedure Procedure Detail Performing Clinician History of tonsillectomy DR CARLOS RAMOS MD Immunizations Immunization Date Immunization Notes Care Provider [facility] 03-07-2021 SARS-CoV-2 mRNA (tozinameran) vaccine RHONDA [employer] [facility] Comment on above: Result Comment: 2024: TPVAL 02-14-2021 SARS-CoV-2 mRNA (tozinameran) vaccine RHONDA [employer] [facility] Comment on above: Result Comment: 2024: TPVAL 01-23-2015 hepatitis A and hepatitis B vaccine RHONDA [employer] [facility] 11-11-1994 measles/mumps/rubell a virus vaccine RHONDA [employer] [facility] 05-20-1984 measles/mumps/rubell a virus vaccine RHONDA MONTENEGRO [employer] [facility] Payers Date Payer Category Payer Private Health Insurance [id number] 2024 Unknown [id number] 2024 Self-pay 2023 Unknown [id number] 1983 Unknown [id number] 2.16.8 [id number]. 1983 Unknown [id number] 2.16.8 40.1.908321.3.579.2 1983 Unknown [id number] .16.8 40.1.011522.3.579.2 1983 Unknown [id number] 2.16.8 40.1.738296.3.579.2 1983 Unknown [id number] . [id number] 1983 Unknown [id number] 2.16.8 40.1.797102.3.579.2. 1983 Unknown [id number] 2.16.8 40.1.063158.3.579.2 1983 Unknown [id number] 2.16.8 40.1.837327.3.579.2. 1983 Unknown [id number] 2.16.8 40.1.662273.3.579.2 1983 Unknown [id number] 2.16.8 40.1.790576.3.579.2 1983 Unknown [id number] 2.16 840.1.940371.3.579.2 1983 Unknown [id number] 2.16 [id number] 1983 Unknown [id number] 2.16. 840.1.792544.3.579.2.7 1983 Unknown [id number] 2.16. [id number] 1983 Unknown [id number] 2.16.8 40.1.163164.3.579.2.7 1983 Unknown [id number] 2.16.8 [id number] Social History Date Type Detail Facility Tobacco smoking status Never smoked tobacco (finding) [facility] Sex Assigned At [facility] Start: 01-04-2024 Tobacco smoking status Smokes tobacco daily (finding) [facility] Tobacco smoking status SDIS Tobacco smoking consumption unknown [facility] Start: 1985 Sex Assigned At Not on file [facility] Gender identity Not on file [facility] Start: 03-15-2025 Tobacco smoking status Light tobacco smoker (finding) [facility] Start: 10-30-2005 Sex Male (finding) [facility] Functional Status Date Assessment Result Facility 01-04-2024 Functional Status ID band on, Call device within reach, Bed in low position, Wheels locked, Bedside Cart Locked, Safety level maintained [facility] 01-04-2024 Functional Status [facility] 01-04-2024 Functional Status [facility] 04-06-2023 Functional Status Independent [facility] 04-06-2023 Functional Status N/A [facility] 09-30-2022 Functional Status Room check performed [facility] Mental Status Date Assessment Result Facility 08-18-2024 Mental Status Orientation Oriented x 4 [facility] 01-04-2024 Mental Status Oriented x 4 [facility] 04-15-2024 Mental Status [facility] 04-06-2023 Mental Status Orientation Oriented x 4 [facility] 04-06-2023 Mental Status [facility] 09-30-2022 Mental Status Oriented x 4 [facility] Clinical Notes 09-30-2022 to 06-23-2025 Note Date & Type Note Facility 06-23-2025 Note Exam Date Time Procedure Performing Provider Status 06/23/25 2:46 PM US Elastography Liver Only PATRICIO SHEA MD; Auth (Verified) [id number] ORIGINAL EXAMINATION: Hepatic elastography TECHNIQUE: 2D Shear Wave Elastography of the liver was performed in the right lobe. COMPARISON: 06/16/2025 FINDINGS: Diffusely increased hepatic echogenicity with decreased through transmission. No ascites. 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 Shear Wave Liver Elastography-liver fibrosis staging Median Velocity: Recommendation: 1.35-1.66 m/s (5.48 kPa - 8.29 kPa) Normal to mild risk of clinically significant liver fibrosis : METAVIR Stage F1 1.66-1.77 m/s (8.29 kPa - 9.40 kPa) Lcks-ri-pikomtoy risk of clinically significant liver fibrosis. (METAVIR Stage F2) 1.77-1.99 m/s (9.40 kPa - 11.9 kPa) Moderate to severe risk of clinically significant liver fibrosis (METAVIR Stage F3) > 1.99 m/s (> 11.9 kPa) Advanced Fibrosis and/or Cirrhosis: (METAVIR Stage F4) Interpreted by: Manuela Shea Preliminary Report By: Manuela Shea Electronically signed By Manuela Shea Dictated Date: 06/23/2025 4:53:53 PM Prelim Date: 06/23/2025 4:54:45 PM Sign Date: 06/23/2025 4:54:45 PM Ordering Provider: KANWAL COKER RP [facility]11-28-2024 Hospital Discharge instructions Patient Education 08/18/2024 16:53:39 Chest Pain, Uncertain Cause Uncertain Causes of Chest Pain Chest pain can happen for a number of reasons. Sometimes the cause can't be determined. If your condition does not seem serious, and your pain does not appear to be coming from your heart, your healthcare provider may recommend watching it closely. Sometimes the signs of a serious problem take moretime to appear. Many problems not related to your heart can cause chest pain. These include: Musculoskeletal. Costochondritis is an inflammation of the tissues around the ribs that can occur from trauma or overuse injuries, or a strain of the muscles of the chest wall Respiratory. Pneumonia, collapsed lung (pneumothorax), or inflammation of the lining of the chest and lungs (pleurisy) Gastrointestinal. Esophageal reflux, heartburn, ulcers, or gallbladder disease Anxiety and panic disorders Nerve compression and inflammation Rare miscellaneous problems such as aortic aneurysm (a swelling of the large artery coming out of the heart) or pulmonary embolism (a blood clot in the lungs) Home care After your visit, follow these recommendations: Rest today and avoid strenuous activity. Take any prescribed medicine as directed. Be aware of any recurrent chest pain and notice any changes Follow-up care Follow up with your healthcare provider if you do not start to feel better within 24 hours, or as advised. Call 911 Call 911 if any of these occur: A change in the type of pain: if it feels different, becomes more severe, lasts longer, or begins to spread into your shoulder, arm, neck, jaw or back Shortness of breath or increased pain with breathing Weakness, dizziness, or fainting Rapid heart beat Crushing sensation in your chest When to seek medical advice Call your healthcare provider right away if any of the following occur: Cough with dark colored sputum (phlegm) or blood Fever of 100.4 F (38 C) or higher, or as directed by your healthcare provider Swelling, pain or redness in one leg [phone] [employer]. [address] [place] [address], [place] [id number]. All rights reserved. This information is not intended as a substitute for professional medical care. Always follow yourhealthcare professional's instructions. 08/18/2024 16:53:35 Hypokalemia Hypokalemia Hypokalemia means a low level of potassium in the blood. This most often occurs in people who take water pills (diuretics). It can also occur because of severe vomiting or diarrhea. You may also haveit if you take laxatives for long periods of time. It sometimes happens if you have low magnesium (hypomagnesemia). If you have this, your healthcare provider will treat the low magnesium first. A mild case of hypokalemia usually causes no symptoms. It is only found with blood testing. More severe potassium loss causes overall weakness, muscle or abdominal cramps, rapid or irregular heartbeats (heart palpitations), low blood pressure, and muscle weakness. Home care Take any potassium supplements as prescribed. Eat foods rich in potassium. The highest amount is found in avocado, baked potatoes, spinach, cantaloupe, cod, halibut, salmon, and scallops. White, red, or pablo beans are also very good sources. A modest amount of potassium is found in orange juice, bananas, carrots, and tomato juice. If you take certain types of diuretics, you will also need to take potassium supplements. If you take a diuretic, discuss potassium supplements with your doctor. Follow-up care Follow up with your healthcare provider for a repeat blood test within the next week, or as advisedby our staff. When to seek medical advice Call your healthcare provider right away if any of the following occur: Increased weakness, fatigue, or muscle cramps Dizziness Call 911 Call 911 if any of the following occur: Irregular heartbeat, extra beats, or very fast heart rate Loss of consciousness [phone] [employer]. [address] [place] [address]. All rights reserved. This information is not intended as a substitute for professional medical care. Always follow [facility]'s instructions. 08/18/2024 16:53:33 Anxiety Reaction Anxiety Reaction Anxiety is the feeling we all get when we think something bad might happen. It is a normal responseto stress and usually causes only a mild reaction. When anxiety becomes more severe, it can interfere with daily life. In some cases, you may not even be aware of what it is you re anxious about. There may also be a genetic link or it may be a learned behavior in the home. Both psychological and physical triggers cause stress reaction. It's often a response to fear or emotional stress, real or imagined. This stress may come from home, family, work, or social relationships. During an anxiety reaction, you may feel: Helpless Nervous Depressed Irritable Your body may show signs of anxiety in many ways. You may experience: Dry mouth Shakiness Dizziness Weakness Trouble breathing Breathing fast (hyperventilating) Chest pressure Sweating Headache Nausea Diarrhea Tiredness Inability to sleep Sexual problems Home care Try to locate the sources of stress in your life. They may not be obvious. These may include: oDaily hassles of life (such as traffic jams, missed appointments, or car troubles) oMajor life changes, both good (new baby or job promotion) and bad (loss of job or loss of loved one) oOverload: feeling that you have too many responsibilities and can't take care of all of them at once oFeeling helpless or feeling that your problems are beyond what you re able to solve Notice how your body reacts to stress. Learn to listen to your body signals. This will help you take action before the stress becomes severe. When you can, do something about the source of your stress. (Avoid hassles, limit the amount of change that happens in your life at one time and take a break when you feel overloaded). Unfortunately, many stressful situations can't be avoided. It is necessary to learn how to better manage stress. There are many proven methods that will reduce your anxiety. These include simple things like exercise, good nutrition, and adequate rest. Also, there are certain techniques that are helpful: oRelaxation oBreathing exercises oVisualization oBiofeedback oMeditation For more information about this, consult your healthcare provider or go to a local bookstore and review the many books and tapes available on this subject. Follow-up care If you feel that your anxiety is not responding to self-help measures, contact your healthcare provider or make an appointment with a counselor. You may need short-term psychological counseling and temporary medicine to help you manage stress. Call 911 Call 911 if any of these happen: Trouble breathing Confusion Drowsiness or trouble wakening Fainting or loss of consciousness Rapid heart rate Seizure New chest pain that becomes more severe, lasts longer, or spreads into your shoulder, arm, neck, jaw, or back When to seek medical advice Call your healthcare provider right away if any of these happen: Your symptoms get worse Severe headache not relieved by rest and mild pain reliever [employer]. [address] [place] [id number]. All rights reserved. This information is not intended as a substitute for professional medical care. Always follow yourhealthcare professional's instructions. 08/18/2024 16:53:30 Palpitations Heart Palpitations Palpitations are the feeling that your heart is beating hard, fast, or irregular. Some describe it as pounding or skipped beats. Palpitations may occur in someone with heart disease, but can alsooccur in a healthy person. Heart-related causes: Arrhythmia (a change from the heart's normal rhythm) Heart valve disease Disease of the heart muscle Coronary artery disease High blood pressure Kmf-asryr-xqxgnuh causes: Certain medicines such as asthma inhalers and decongestants Some herbal supplements, energy drinks and pills, and weight loss pills Illegal stimulant drugs such as cocaine, crank, methamphetamine, PCP, bath salts, or ecstasy Caffeine, alcohol, and tobacco Medical conditions such as thyroid disease, anemia, anxiety, and panic disorder Sometimes the cause can't be found. Home care Follow these home care tips: Don't use too much caffeine, alcohol, tobacco, or any stimulant drugs. Tell your doctor about any prescription or nwmd-lki-wcklxbv or herbal medicines you take. Follow-up care Follow up with your doctor, or as advised. Call 911 This is the fastest and safest way to get to the emergency department. The paramedics can also begin treatment on the way to the hospital, if needed. Don't wait until your symptoms are severe to call 911. These are reasons to call 911: Chest pain Shortness of breath Feeling lightheaded, faint, or dizzy Fainting or loss of consciousness Very irregular heartbeat Rapid heartbeat that makes you uncomfortable Slower than usual heart rate associated with symptoms Slower than usual heart rate Chest pain with weakness, dizziness, heavy sweating, nausea, or vomiting Extreme drowsiness or confusion Weakness of an arm or leg, or on 1 side of the face Difficulty with speech or vision When to seek medical advice Call your healthcare provider right away if you have palpitations and any of the following: Weakness Dizziness Lightheadedness Fainting [employer]. [address] [place] [address]. All rights reserved. This information is not intended as a substitute for professional medical care. Always follow yourhealthcare professional's instructions. Follow Up Care 08/18/2024 14:45:52 With:MACO LEWIS MD, Internal Medicine, [facility] Physicians Address: [place] [address]- [phone] When:2-4 days Comments:Return to ED if symptoms worsen [facility] 11-28-2024 Emergency department Discharge summary Discharge Instructions Thank you for allowing [facility] to assist you with your healthcare needs. The following is importantdischarge information regarding your hospital visit. Diagnosis from Today's Visit Anxiety Chest discomfort Hypokalemia Hypomagnesemia Palpitations What to Do Next Instructions from Your Care Team No qualifying data available. Post Acute Orders No qualifying data available. You Need to Schedule the Following Appointments Follow Up with MACO LEWIS MD, Internal Medicine, [facility] When:Within 2-4 days Where:[address] [place] [address]- [phone] Additional Information: Return to ED if symptoms worsen Allergies [place] chicken losartan feeling throat closing Medications Please ask your primary doctor or pharmacist before taking any other medication not listed, including over the counter drugs, herbal medications, vitamins and or supplements as they may interact withyour home medications. What How Much When Why Instructions Last Dose Unchanged albuterol (albuterol MDI (90 mcg/ inh) CFC free inhalation aerosol) 1 puff(s) by inhalation Every 4 hours as needed for as needed for wheezing Asthma Duration: 30 Days Unchanged buprenorphine-naloxone (buprenorphine-naloxone 8 mg-2 mg sublingual film) 1 Each under the tongue Once a day Unchanged hydroCHLOROthiazide (hydroCHLOROthiazide 25 mg oral tablet) 1 tab(s) by mouth Once a day Please take this list to your next doctor s visit. Bring all medications you take, including over the counter medications, herbals and other supplements with you to your doctor s visit. Patients and families are reminded to discard old lists and to update any records with all medication providers or retail pharmacies. Education Materials Uncertain Causes of Chest Pain Chest pain can happen for a number of reasons. Sometimes the cause can't be determined. If your condition does not seem serious, and your pain does not appear to be coming from your heart, your healthcare provider may recommend watching it closely. Sometimes the signs of a serious problem take moretime to appear. Many problems not related to your heart can cause chest pain. These include: Musculoskeletal. Costochondritis is an inflammation of the tissues around the ribs that can occur from trauma or overuse injuries, or a strain of the muscles of the chest wall Respiratory. Pneumonia, collapsed lung (pneumothorax), or inflammation of the lining of the chest and lungs (pleurisy) Gastrointestinal. Esophageal reflux, heartburn, ulcers, or gallbladder disease Anxiety and panic disorders Nerve compression and inflammation Rare miscellaneous problems such as aortic aneurysm (a swelling of the large artery coming out of the heart) or pulmonary embolism (a blood clot in the lungs) Home care After your visit, follow these recommendations: Rest today and avoid strenuous activity. Take any prescribed medicine as directed. Be aware of any recurrent chest pain and notice any changes Follow-up care Follow up with your healthcare provider if you do not start to feel better within 24 hours, or as advised. Call 911 Call 911 if any of these occur: A change in the type of pain: if it feels different, becomes more severe, lasts longer, or begins to spread into your shoulder, arm, neck, jaw or back Shortness of breath or increased pain with breathing Weakness, dizziness, or fainting Rapid heart beat Crushing sensation in your chest When to seek medical advice Call your healthcare provider right away if any of the following occur: Cough with dark colored sputum (phlegm) or blood Fever of 100.4 F (38 C) or higher, or as directed by your healthcare provider Swelling, pain or redness in one leg [phone] [employer]. [address] [place] [address]. All rights reserved. This information is not intended as a substitute for professional medical care. Always follow yourhealthcare professional's instructions. Hypokalemia Hypokalemia means a low level of potassium in the blood. This most often occurs in people who take water pills (diuretics). It can also occur because of severe vomiting or diarrhea. You may also haveit if you take laxatives for long periods of time. It sometimes happens if you have low magnesium (hypomagnesemia). If you have this, your healthcare provider will treat the low magnesium first. A mild case of hypokalemia usually causes no symptoms. It is only found with blood testing. More severe potassium loss causes overall weakness, muscle or abdominal cramps, rapid or irregular heartbeats (heart palpitations), low blood pressure, and muscle weakness. Home care Take any potassium supplements as prescribed. Eat foods rich in potassium. The highest amount is found in avocado, baked potatoes, spinach, cantaloupe, cod, halibut, salmon, and scallops. White, red, or pablo beans are also very good sources. A modest amount of potassium is found in orange juice, bananas, carrots, and tomato juice. If you take certain types of diuretics, you will also need to take potassium supplements. If you take a diuretic, discuss potassium supplements with your doctor. Follow-up care Follow up with your healthcare provider for a repeat blood test within the next week, or as advisedby our staff. When to seek medical advice Call your healthcare provider right away if any of the following occur: Increased weakness, fatigue, or muscle cramps Dizziness Call 911 Call 911 if any of the following occur: Irregular heartbeat, extra beats, or very fast heart rate Loss of consciousness [phone] [employer]. [address] [place] [address]. All rights reserved. This information is not intended as a substitute for professional medical care. Always follow yourhealthcare professional's instructions. Anxiety Reaction Anxiety is the feeling we all get when we think something bad might happen. It is a normal responseto stress and usually causes only a mild reaction. When anxiety becomes more severe, it can interfere with daily life. In some cases, you may not even be aware of what it is you re anxious about. There may also be a genetic link or it may be a learned behavior in the home. Both psychological and physical triggers cause stress reaction. It's often a response to fear or emotional stress, real or imagined. This stress may come from home, family, work, or social relationships. During an anxiety reaction, you may feel: Helpless Nervous Depressed Irritable Your body may show signs of anxiety in many ways. You may experience: Dry mouth Shakiness Dizziness Weakness Trouble breathing Breathing fast (hyperventilating) Chest pressure Sweating Headache Nausea Diarrhea Tiredness Inability to sleep Sexual problems Home care Try to locate the sources of stress in your life. They may not be obvious. These may include: oDaily hassles of life (such as traffic jams, missed appointments, or car troubles) oMajor life changes, both good (new baby or job promotion) and bad (loss of job or loss of loved one) oOverload: feeling that you have too many responsibilities and can't take care of all of them at once oFeeling helpless or feeling that your problems are beyond what you re able to solve Notice how your body reacts to stress. Learn to listen to your body signals. This will help you take action before the stress becomes severe. When you can, do something about the source of your stress. (Avoid hassles, limit the amount of change that happens in your life at one time and take a break when you feel overloaded). Unfortunately, many stressful situations can't be avoided. It is necessary to learn how to better manage stress. There are many proven methods that will reduce your anxiety. These include simple things like exercise, good nutrition, and adequate rest. Also, there are certain techniques that are helpful: oRelaxation oBreathing exercises oVisualization oBiofeedback oMeditation For more information about this, consult your healthcare provider or go to a local bookstore and review the many books and tapes available on this subject. Follow-up care If you feel that your anxiety is not responding to self-help measures, contact your healthcare provider or make an appointment with a counselor. You may need short-term psychological counseling and temporary medicine to help you manage stress. Call 911 Call 911 if any of these happen: Trouble breathing Confusion Drowsiness or trouble wakening Fainting or loss of consciousness Rapid heart rate Seizure New chest pain that becomes more severe, lasts longer, or spreads into your shoulder, arm, neck, jaw, or back When to seek medical advice Call your healthcare provider right away if any of these happen: Your symptoms get worse Severe headache not relieved by rest and mild pain reliever [phone] [employer]. [address] [place] [address], [place] [address]. All rights reserved. This information is not intended as a substitute for professional medical care. Always follow yourhealthcare professional's instructions. Heart Palpitations Palpitations are the feeling that your heart is beating hard, fast, or irregular. Some describe it as pounding or skipped beats. Palpitations may occur in someone with heart disease, but can alsooccur in a healthy person. Heart-related causes: Arrhythmia (a change from the heart's normal rhythm) Heart valve disease Disease of the heart muscle Coronary artery disease High blood pressure Byt-ojtce-pppknzg causes: Certain medicines such as asthma inhalers and decongestants Some herbal supplements, energy drinks and pills, and weight loss pills Illegal stimulant drugs such as cocaine, crank, methamphetamine, PCP, bath salts, or ecstasy Caffeine, alcohol, and tobacco Medical conditions such as thyroid disease, anemia, anxiety, and panic disorder Sometimes the cause can't be found. Home care Follow these home care tips: Don't use too much caffeine, alcohol, tobacco, or any stimulant drugs. Tell your doctor about any prescription or vdyt-qmj-lzvbgpy or herbal medicines you take. Follow-up care Follow up with your doctor, or as advised. Call 911 This is the fastest and safest way to get to the emergency department. The paramedics can also begin treatment on the way to the hospital, if needed. Don't wait until your symptoms are severe to call 911. These are reasons to call 911: Chest pain Shortness of breath Feeling lightheaded, faint, or dizzy Fainting or loss of consciousness Very irregular heartbeat Rapid heartbeat that makes you uncomfortable Slower than usual heart rate associated with symptoms Slower than usual heart rate Chest pain with weakness, dizziness, heavy sweating, nausea, or vomiting Extreme drowsiness or confusion Weakness of an arm or leg, or on 1 side of the face Difficulty with speech or vision When to seek medical advice Call your healthcare provider right away if you have palpitations and any of the following: Weakness Dizziness Lightheadedness Fainting [phone] [employer]. [address] [place] [address], [place] [address]. All rights reserved. This information is not intended as a substitute for professional medical care. Always follow yourhealthcare professional's instructions. Additional Information VACCINATE! IT SAVES LIVES! Members of the community who have not yet received the COVID-19 vaccine and would like to receive it can visit one of [facility] vaccine clinics. There are many vaccine clinic locations within the [facility]. For locations and available times, please visit [email or web address] It is important to note that some COVID mobile vaccine clinics are held outdoors and may be canceled in rainy or stormy conditions. To learn more about pediatric vaccinations (ages 5-11), we invite you to visit the [facility] webpage. [email or web address] learn more about the COVID-19 vaccine, we invite you to visit the CDC website for a list of frequently asked questions. https://www.cdc.gov/coronavirus/2019-ncov/vaccines/faq.html [facility] Patient Portal Access Instructions: Stay connected with your healthcare team and access your personal medical information anytime with the [facility] Patient Portal. If you would like a full copy of your medical records please contact the [facility] Medical Records Department Thursday through Thursday between 8a.m. and 4:30p.m. Please follow the directions below to access the portal: 1.Access the email account you provided upon registration to the hospital.2.Look for an invitation email from [facility].3.Open the email and access the invitation link: Accept Invitation to [facility].Fill in the required benson to create your account. Sign into [email or web address] with your username and password that you created in the above steps to stay up to date. You can then view a summary of results, a summary of your visits, and the ability to download your summaries to your computer or send the information securely to a physician. Remember that your healthcare information is confidential, so carefully consider who you will allow to register on the [facility] Patient Portal for access to your information. You can also access the [facility] Patient Portal on the [employer]isses. Simply click on Health Records under [employer] and then click on the [employer] logo. HOW TO SAFELY DISPOSE OF PRESCRIPTION MEDICATIONS Please use one of the following methods to safely dispose of your unused medications. 1.Use a drug disposal kit: the drug disposal pouch allows you to safely discard your old and unuseddrugs. Ask your nurse to give you one when you are discharged.2.Visit a local take-back location: Many local pharmacies and police departments have programs that collect old and unwanted prescriptiondrugs. Call your local pharmacy or go to http://Unidesk.Nidmi/3A7Dn3x to find one close to you.3.Make use of household items: Use cat litter or old coffee grounds to dispose medications if other options arenot available. Mix your drugs with these household products, seal them in an airtight container andthrow it into the garbage. Call [facility]: [phone] to be sure your drugs can be disposed of in this way. Some medicines may require a different approach.4.Never flush your medications down the toilet. IF YOU HAVE BEEN PRESCRIBED AN OPIOIDS FOR PAIN If you have been prescribed an opioid (such as hydrocodone, oxycodone or morphine), it is critical to understand the possible side effects and risks of opioid pain medications. Even when taken as directed, opioids can have several side effects including: Tolerance, meaning you might need to take more of a medication for the same pain relief. Nausea, vomiting and/or constipation. Sleepiness, dizziness, dry mouth, confusion, depression or itching. Physical dependence, meaning you have withdrawal symptoms when a medication is stopped ? this can develop within a few days. KNOW YOUR RESPONSIBILITIES It is important to know exactly how much and how often to take the opioid pain medications you are prescribed. Never take opioids in higher amounts or more often than prescribed. Do not combine opioids with alcohol or other drugs that cause drowsiness, such as benzodiazepines, also known as benzos,including diazepam and alprazolam, muscle relaxants or sleep aids. Never sell or share prescriptionopioids. This is illegal. Store opioids in a secure place and out of reach of others (including children, family, friends and visitors). The last page(s) of this document has been signed and retained as a CHART COPY Signatures Patient Education Materials Chest Pain, Uncertain Cause Hypokalemia Anxiety Reaction Palpitations Medication Leaflets My discharge plan and instructions have been reviewed and explained to me and I,ELDA PARSONS understand my current condition and have read and understand these discharge instructions. I have received a written copy of the plan/instructions. If I have questions, I am aware that I should contact my doctor. Patient/Light Industrial Supervisor Signature: Date/Time: Relationship to Patient: Witness Name/Signature: Date/Time: [facility]11-28-2024 Note ORIGINAL EXAMINATION: ONE XRAY VIEW OF THE CHEST 08/18/2024 3:39 pm COMPARISON: 01/04/2024 HISTORY: ORDERING SYSTEM PROVIDED HISTORY: Reason for Exam: chest pain FINDINGS: Cardiomediastinal silhouette is within normal limits. There is no overt edema. No focal consolidation. Costophrenic angles are sharp. No pneumothorax. No acute osseous abnormality. IMPRESSION: No acute cardiopulmonary process. Interpreted by: Manuela Shea Preliminary Report By: Manuela Shea Electronically signed By Manuela Shea Dictated Date: 08/18/2024 3:40:02 PM Prelim Date: 08/18/2024 3:40:38 PM Sign Date: 08/18/2024 3:40:38 PM Ordering Provider[facility] NoteSinus rhythm Borderline left axis deviation RSR' in V1 or V2, probably normal variant Baseline wander in lead(s) II Electronic Signature: MD CARLOS RAMOS MD 08/18/2024 15:00:06[facility] 07-18-2024 History of Present illness Narrative* Wenceslao Ziegler, [facility] - 04/07/2024 4:36 PM EDT Chart review reveals a recent lab test performed at [facility]. Unexpected results found as part of testing for Hepatitis C (HCV) HCV Quant RNA by PCR Date Value Ref Range Status 04/21/2023 HCV RNA detected by PCR. (A) HCV RNA not detected by PCR. Final HCV RNA (IU/mL) Date Value Ref Range Status 04/21/2023 5,100,000 (H) IU/mL Final Ordering Provider is Outside provider Lab result shows patient has Chronic Hepatitis C B18.2 Prior Treatment: not known Allergies: Not on File GT needs to be determined Computed FIB-4 Calculation unavailable. One or more values for this score either were not found within the given timeframe or did not fit some other criterion. Patient is considered low risk of having advanced fibrosis HBV status has been reviewed - recommend universal vaccination if not yet initiated HIV screen recommended HCV Treatment plan: -Candidate for treatment: patient may be eligible for treatment but is not connected to care with [facility] provider PLAN: Unable to follow up with patient about abnormal lab result since patient does not follow [facility] provider. Recommend patient establish and follow up with own provider to discuss HCV treatment. Wenceslao Ziegler RPh [facility] NoteHNO ID: [id number] Author: WENCESLAO ZIEGLER RPh Service: ? Author Type: Pharmacist Type: Progress Notes Filed: 04/07/2024 16:37 Note Text: Chart review reveals a recent lab test performed at [facility]. Unexpected results found as part of testing for Hepatitis C (HCV) HCV Quant RNA by PCR Date Value Ref Range Status 04/21/2023 HCV RNA detected by PCR. (A) HCV RNA not detected by PCR. Final HCV RNA (IU/mL) Date Value Ref Range Status 04/21/2023 5,100,000 (H) IU/mL Final Ordering Provider is Outside provider Lab result shows patient has Chronic Hepatitis C B18.2 Prior Treatment: not known Allergies: Not on File GT needs to be determined Computed FIB-4 Calculation unavailable. One or more values for this score either were not found within the given timeframe or did not fit some other criterion. Patient is considered low risk of having advanced fibrosis HBV status has been reviewed - recommend universal vaccination if not yet initiated HIV screen recommended HCV Treatment plan: -Candidate for treatment: patient may be eligible for treatment but is not connected to care with [facility] provider PLAN: Unable to follow up with patient about abnormal lab result since patient does not follow [facility] provider. Recommend patient establish and follow up with own provider to discuss HCV treatment. Wenceslao Ziegler, [facility]04-15-2024 Hospital Discharge instructions Patient Education 01/04/2024 16:41:57 Chest Pain, Uncertain Cause Uncertain Causes of Chest Pain Chest pain can happen for a number of reasons. Sometimes the cause can't be determined. If your condition does not seem serious, and your pain does not appear to be coming from your heart, your healthcare provider may recommend watching it closely. Sometimes the signs of a serious problem take moretime to appear. Many problems not related to your heart can cause chest pain. These include: Musculoskeletal. Costochondritis is an inflammation of the tissues around the ribs that can occur from trauma or overuse injuries, or a strain of the muscles of the chest wall Respiratory. Pneumonia, collapsed lung (pneumothorax), or inflammation of the lining of the chest and lungs (pleurisy) Gastrointestinal. Esophageal reflux, heartburn, ulcers, or gallbladder disease Anxiety and panic disorders Nerve compression and inflammation Rare miscellaneous problems such as aortic aneurysm (a swelling of the large artery coming out of the heart) or pulmonary embolism (a blood clot in the lungs) Home care After your visit, follow these recommendations: Rest today and avoid strenuous activity. Take any prescribed medicine as directed. Be aware of any recurrent chest pain and notice any changes Follow-up care Follow up with your healthcare provider if you do not start to feel better within 24 hours, or as advised. Call 911 Call 911 if any of these occur: A change in the type of pain: if it feels different, becomes more severe, lasts longer, or begins to spread into your shoulder, arm, neck, jaw or back Shortness of breath or increased pain with breathing Weakness, dizziness, or fainting Rapid heart beat Crushing sensation in your chest When to seek medical advice Call your healthcare provider right away if any of the following occur: Cough with dark colored sputum (phlegm) or blood Fever of 100.4 F (38 C) or higher, or as directed by your healthcare provider Swelling, pain or redness in one leg [phone] [employer]. [address] [place] [address]. All rights reserved. This information is not intended as a substitute for professional medical care. Always follow yourhealthcare professional's instructions. 01/04/2024 16:41:57 Hypertension, New (Begin Treatment) High Blood Pressure, New, Begin Treatment Your blood pressure was high enough today to start treatment with medicines. Often healthcare providers don t know what causes high blood pressure (hypertension). But it can be controlled with lifestyle changes and medicines. High blood pressure usually has no symptoms. But it can sometimes cause he adache, dizziness, blurred vision, a rushing sound in your ears, chest pain, or shortness of breath. But even without symptoms, high blood pressure that s not treated raises your risk for heart attack, heart failure, and stroke. High blood pressure is a serious health risk and shouldn t be ignored. Blood pressure measurements are given as 2 numbers. Systolic blood pressure is the upper number. This is the pressure when the heart contracts. Diastolic blood pressure is the lower number. This is the pressure when the heart relaxes between beats. You will see your blood pressure readings written together. For example, a person with a systolic pressure of 118 and a diastolic pressure of 78 will have 118/78 written in the medical record. Blood pressure is categorized as normal, elevated, or stage 1 or stage 2 high blood pressure: Normal blood pressure is systolic of less than 120 and diastolic of less than 80 (120/80) Elevated blood pressure is systolic of 120 to 129 and diastolic less than 80 Stage 1 high blood pressure is systolic is 130 to 139 or diastolic between 80 to 89 Stage 2 high blood pressure is when systolic is 140 or higher or the diastolic is 90 or higher Home care If you have high blood pressure, you should do what is listed below to lower your blood pressure. If you are taking medicines for high blood pressure, these methods may reduce or end your need for medicines in the future. Begin a weight-loss program if you are overweight. Cut back on how much salt you get in your diet. Here s how to do this: oDon t eat foods that have a lot of salt. These include olives, pickles, smoked meats, and salted potato chips. oDon t add salt to your food at the table. oUse only small amounts of salt when cooking. [employer] food labels to track how much salt is in prepared foods. oWhen eating out, ask that no additional salt be added to your food order. Begin an exercise program. Talk with your healthcare provider about the type of exercise program that would be best for you. It doesn't have to be hard. Even brisk walking for 20 minutes 3 times a week is a good form of exercise. Don t take medicines that have heart stimulants. This includes many zjkz-kdm-ypcglgs cold and sinusdecongestant pills and sprays, as well as diet pills. Check the warnings about high blood pressure on the label. Before purchasing any lcdb-efn-sdnjshg medicines or supplements, always ask the pharmac ist about the product's potential interaction with your high blood pressure and your high blood pressure medicines. Stimulants such as amphetamine or cocaine could be lethal for someone with high blood pressure. Never take these. Limit how much caffeine you get in your diet. Switch to caffeine-free products. Stop smoking. If you are a long-time smoker, this can be hard. Enroll in a stop- smoking program to make it more likely that you will quit for good. Learn how to handle stress. This is an important part of any program to lower blood pressure. Learnabout relaxation methods like meditation, yoga, or biofeedback. If your provider prescribed medicines, take them exactly as directed. Missing doses may cause your blood pressure get out of control. If you miss a dose or doses, check with your healthcare provider or pharmacist about what to do. Consider buying an automatic blood pressure machine. Your provider can make a recommendation. You can get one of these at most pharmacies. The [place] [employer] recommends the following guidelines for home blood pressure monitoring: Don't smoke or drink coffee or other caffeinated drinks for 30 minutes before taking your blood pressure. Go to the bathroom before the test. Relax for 5 minutes before taking the measurement. Sit with your back supported (don't sit on a couch or soft chair); keep your feet on the floor uncrossed. Place your arm on a solid flat surface (like a table) with the upper part of the arm at heartlevel. Place the middle of the cuff directly above the bend of the elbow. Check the monitor's instruction manual for an illustration. Take multiple readings. When you measure, take 2 to 3 readings one minute apart and record all of the results. Take your blood pressure at the same time every day, or as your healthcare provider recommends. Record the date, time, and blood pressure reading. Take the record with you to your next medical appointment. If your blood pressure monitor has a built-in memory, simply take the monitor with you to your next appointment. Call your provider if you have several high readings. Don't be frightened by a single high blood pressure reading, but if you get several high readings, check in with your healthcare provider. Note: When blood pressure reaches a systolic (top number) of 180 or higher OR diastolic (bottom number) of 110 or higher, seek emergency medical treatment. Follow-up care Because a new blood pressure medicine was started today, it s important that you have your blood pressure rechecked. This is to make sure that the medicine is working and that you have no serious side effects. Keep all your follow up appointments. Write down medicine and blood pressure questions and bring them to your next appointment. If you have pressing concerns about your new medicine or yourblood pressure, call your provider. Unless told otherwise, follow up with your healthcare provider or this facility within the next 3 days. When to seek medical advice Call your healthcare provider right away if any of these occur: Blood pressure reaches a systolic (top number) of 180 or higher, OR diastolic (bottom number) of 110 or higher, seek emergency medical treatment. Chest pain or shortness of breath Severe headache Throbbing or rushing sound in the ears Nosebleed Sudden severe pain in your belly (abdomen) Extreme drowsiness, confusion, or fainting Dizziness or dizziness with a spinning sensation (vertigo) Weakness of an arm or leg or one side of the face You have problems speaking or seeing [id number] [employer]. [address] [place] [address]. All rights reserved. This information is not intended as a substitute for professional medical care. Always follow yourhealthcare professional's instructions. Follow Up Care 01/04/2024 14:37:21 With:MACO LEWIS Address: [address] [place] [phone] Business (1) When:2-4 days Comments:Be sure to have your blood pressure recheck, follow-up with your doctor, return if any worsening orconcerning symptoms. [facility] 04-15-2024 Emergency department Discharge summary Discharge Instructions Thank you for allowing [facility] to assist you with your healthcare needs. The following is importantdischarge information regarding your hospital visit. Diagnosis from Today's Visit Chest pain Elevated blood pressure Hypertension What to Do Next Instructions from Your Care Team No qualifying data available. Post Acute Orders No qualifying data available. You Need to Schedule the Following Appointments Follow Up with MACO LEWIS When Within 2-4 days Why: Be sure to have your blood pressure recheck, follow-up with your doctor, return if any worsening or concerning symptoms. Where: [address] [place] [address] [phone] Business (1) Allergies [place] chicken Medications Please ask your primary doctor or pharmacist before taking any other medication not listed, including over the counter drugs, herbal medications, vitamins and or supplements as they may interact withyour home medications. What How Much When Why Instructions Last Dose New amLODIPine (amLODIPine 5 mg oral tablet) 1 tab(s) by mouth Once a day Printed Prescription Unchanged buprenorphine-naloxone (buprenorphine-naloxone 8 mg-2 mg sublingual film) 1 Each under the tongue Once a day Unchanged meloxicam (meloxicam 7.5 mg oral tablet) 1 tab(s) by mouth Once a day Chronic knee pain Please take this list to your next doctor s visit. Bring all medications you take, including over the counter medications, herbals and other supplements with you to your doctor s visit. Patients and families are reminded to discard old lists and to update any records with all medication providers or retail pharmacies. Education Materials Uncertain Causes of Chest Pain Chest pain can happen for a number of reasons. Sometimes the cause can't be determined. If your condition does not seem serious, and your pain does not appear to be coming from your heart, your healthcare provider may recommend watching it closely. Sometimes the signs of a serious problem take moretime to appear. Many problems not related to your heart can cause chest pain. These include: Musculoskeletal. Costochondritis is an inflammation of the tissues around the ribs that can occur from trauma or overuse injuries, or a strain of the muscles of the chest wall Respiratory. Pneumonia, collapsed lung (pneumothorax), or inflammation of the lining of the chest and lungs (pleurisy) Gastrointestinal. Esophageal reflux, heartburn, ulcers, or gallbladder disease Anxiety and panic disorders Nerve compression and inflammation Rare miscellaneous problems such as aortic aneurysm (a swelling of the large artery coming out of the heart) or pulmonary embolism (a blood clot in the lungs) Home care After your visit, follow these recommendations: Rest today and avoid strenuous activity. Take any prescribed medicine as directed. Be aware of any recurrent chest pain and notice any changes Follow-up care Follow up with your healthcare provider if you do not start to feel better within 24 hours, or as advised. Call 911 Call 911 if any of these occur: A change in the type of pain: if it feels different, becomes more severe, lasts longer, or begins to spread into your shoulder, arm, neck, jaw or back Shortness of breath or increased pain with breathing Weakness, dizziness, or fainting Rapid heart beat Crushing sensation in your chest When to seek medical advice Call your healthcare provider right away if any of the following occur: Cough with dark colored sputum (phlegm) or blood Fever of 100.4 F (38 C) or higher, or as directed by your healthcare provider Swelling, pain or redness in one leg [id number] [employer]. [address] [place] [address]. All rights reserved. This information is not intended as a substitute for professional medical care. Always follow yourhealthcare professional's instructions. High Blood Pressure, New, Begin Treatment Your blood pressure was high enough today to start treatment with medicines. Often healthcare providers don t know what causes high blood pressure (hypertension). But it can be controlled with lifestyle changes and medicines. High blood pressure usually has no symptoms. But it can sometimes cause he adache, dizziness, blurred vision, a rushing sound in your ears, chest pain, or shortness of breath. But even without symptoms, high blood pressure that s not treated raises your risk for heart attack, heart failure, and stroke. High blood pressure is a serious health risk and shouldn t be ignored. Blood pressure measurements are given as 2 numbers. Systolic blood pressure is the upper number. This is the pressure when the heart contracts. Diastolic blood pressure is the lower number. This is the pressure when the heart relaxes between beats. You will see your blood pressure readings written together. For example, a person with a systolic pressure of 118 and a diastolic pressure of 78 will have 118/78 written in the medical record. Blood pressure is categorized as normal, elevated, or stage 1 or stage 2 high blood pressure: Normal blood pressure is systolic of less than 120 and diastolic of less than 80 (120/80) Elevated blood pressure is systolic of 120 to 129 and diastolic less than 80 Stage 1 high blood pressure is systolic is 130 to 139 or diastolic between 80 to 89 Stage 2 high blood pressure is when systolic is 140 or higher or the diastolic is 90 or higher Home care If you have high blood pressure, you should do what is listed below to lower your blood pressure. If you are taking medicines for high blood pressure, these methods may reduce or end your need for medicines in the future. Begin a weight-loss program if you are overweight. Cut back on how much salt you get in your diet. Here s how to do this: oDon t eat foods that have a lot of salt. These include olives, pickles, smoked meats, and salted potato chips. oDon t add salt to your food at the table. oUse only small amounts of salt when cooking. oReview food labels to track how much salt is in prepared foods. oWhen eating out, ask that no additional salt be added to your food order. Begin an exercise program. Talk with your healthcare provider about the type of exercise program that would be best for you. It doesn't have to be hard. Even brisk walking for 20 minutes 3 times a week is a good form of exercise. Don t take medicines that have heart stimulants. This includes many pmnb-ltn-hsupprv cold and sinusdecongestant pills and sprays, as well as diet pills. Check the warnings about high blood pressure on the label. Before purchasing any eqlf-mqo-qqpyvhc medicines or supplements, always ask the pharmac ist about the product's potential interaction with your high blood pressure and your high blood pressure medicines. Stimulants such as amphetamine or cocaine could be lethal for someone with high blood pressure. Never take these. Limit how much caffeine you get in your diet. Switch to caffeine-free products. Stop smoking. If you are a long-time smoker, this can be hard. Enroll in a stop- smoking program to make it more likely that you will quit for good. Learn how to handle stress. This is an important part of any program to lower blood pressure. Learnabout relaxation methods like meditation, yoga, or biofeedback. If your provider prescribed medicines, take them exactly as directed. Missing doses may cause your blood pressure get out of control. If you miss a dose or doses, check with your healthcare provider or pharmacist about what to do. Consider buying an automatic blood pressure machine. Your provider can make a recommendation. You can get one of these at most pharmacies. The [place] [employer] recommends the following guidelines for home blood pressure monitoring: Don't smoke or drink coffee or other caffeinated drinks for 30 minutes before taking your blood pressure. Go to the bathroom before the test. Relax for 5 minutes before taking the measurement. Sit with your back supported (don't sit on a couch or soft chair); keep your feet on the floor uncrossed. Place your arm on a solid flat surface (like a table) with the upper part of the arm at heartlevel. Place the middle of the cuff directly above the bend of the elbow. Check the monitor's instruction manual for an illustration. Take multiple readings. When you measure, take 2 to 3 readings one minute apart and record all of the results. Take your blood pressure at the same time every day, or as your healthcare provider recommends. Record the date, time, and blood pressure reading. Take the record with you to your next medical appointment. If your blood pressure monitor has a built-in memory, simply take the monitor with you to your next appointment. Call your provider if you have several high readings. Don't be frightened by a single high blood pressure reading, but if you get several high readings, check in with your healthcare provider. Note: When blood pressure reaches a systolic (top number) of 180 or higher OR diastolic (bottom number) of 110 or higher, seek emergency medical treatment. Follow-up care Because a new blood pressure medicine was started today, it s important that you have your blood pressure rechecked. This is to make sure that the medicine is working and that you have no serious side effects. Keep all your follow up appointments. Write down medicine and blood pressure questions and bring them to your next appointment. If you have pressing concerns about your new medicine or yourblood pressure, call your provider. Unless told otherwise, follow up with your healthcare provider or this facility within the next 3 days. When to seek medical advice Call your healthcare provider right away if any of these occur: Blood pressure reaches a systolic (top number) of 180 or higher, OR diastolic (bottom number) of 110 or higher, seek emergency medical treatment. Chest pain or shortness of breath Severe headache Throbbing or rushing sound in the ears Nosebleed Sudden severe pain in your belly (abdomen) Extreme drowsiness, confusion, or fainting Dizziness or dizziness with a spinning sensation (vertigo) Weakness of an arm or leg or one side of the face You have problems speaking or seeing [phone] [employer]. [address] [place] [address], [place] [address]. All rights reserved. This information is not intended as a substitute for professional medical care. Always follow yourhealthcare professional's instructions. Additional Information VACCINATE! IT SAVES LIVES! Members of the community who have not yet received the COVID-19 vaccine and would like to receive it can visit one of [facility] vaccine clinics. There are many vaccine clinic locations within the [facility]. For locations and available times, please visit www.[email or web address].[place].gov/. It is important to note that some COVID mobile vaccine clinics are held outdoors and may be canceled in rainy or stormy conditions. To learn more about pediatric vaccinations (ages 5-11), we invite you to visit the [employer] webpage. https://www.[employer].org/pages/0337-Aibly-Vfbqalnmcya-Uuzyiodqvw-Snyjv-Xqt stions.htmlTo learn more about the COVID-19 vaccine, we invite you to visit the CDC website for a list of frequently asked questions. https://www.cdc.gov/coronavirus/2019-ncov/vaccines/faq.html [facility] Patient Portal Access Instructions: Stay connected with your healthcare team and access your personal medical information anytime with the [facility] Patient Portal. If you would like a full copy of your medical records please contact the [facility] Medical Records Department Thursday through Thursday between 8a.m. and 4:30p.m. Please follow the directions below to access the portal: 1.Access the email account you provided upon registration to the hospital.2.Look for an invitation email from [facility].3.Open the email and access the invitation link: Accept Invitation to [facility].Fill in the required benson to create your account. Sign into [email or web address] with your username and password that you created in the above steps to stay up to date. You can then view a summary of results, a summary of your visits, and the ability to download your summaries to your computer or send the information securely to a physician. Remember that your healthcare information is confidential, so carefully consider who you will allow to register on the [facility] Patient Portal for access to your information. You can also access the [facility] Patient Portal on the in2apps. Simply click on Health Records under [employer] and then click on the [employer] logo. HOW TO SAFELY DISPOSE OF PRESCRIPTION MEDICATIONS Please use one of the following methods to safely dispose of your unused medications. 1.Use a drug disposal kit: the drug disposal pouch allows you to safely discard your old and unuseddrugs. Ask your nurse to give you one when you are discharged.2.Visit a local take-back location: Many local pharmacies and police departments have programs that collect old and unwanted prescriptiondrugs. Call your local pharmacy or go to http://Unidesk.Nidmi/7T3Fd4y to find one close to you.3.Make use of household items: Use cat litter or old coffee grounds to dispose medications if other options arenot available. Mix your drugs with these household products, seal them in an airtight container andthrow it into the garbage. Call [facility]: [phone] to be sure your drugs can be disposed of in this way. Some medicines may require a different approach.4.Never flush your medications down the toilet. IF YOU HAVE BEEN PRESCRIBED AN OPIOIDS FOR PAIN If you have been prescribed an opioid (such as hydrocodone, oxycodone or morphine), it is critical to understand the possible side effects and risks of opioid pain medications. Even when taken as directed, opioids can have several side effects including: Tolerance, meaning you might need to take more of a medication for the same pain relief. Nausea, vomiting and/or constipation. Sleepiness, dizziness, dry mouth, confusion, depression or itching. Physical dependence, meaning you have withdrawal symptoms when a medication is stopped ? this can develop within a few days. KNOW YOUR RESPONSIBILITIES It is important to know exactly how much and how often to take the opioid pain medications you are prescribed. Never take opioids in higher amounts or more often than prescribed. Do not combine opioids with alcohol or other drugs that cause drowsiness, such as benzodiazepines, also known as benzos,including diazepam and alprazolam, muscle relaxants or sleep aids. Never sell or share prescriptionopioids. This is illegal. Store opioids in a secure place and out of reach of others (including children, family, friends and visitors). The last page(s) of this document has been signed and retained as a CHART COPY Signatures Patient Education Materials Chest Pain, Uncertain Cause Hypertension, New (Begin Treatment) Medication Leaflets My discharge plan and instructions have been reviewed and explained to me and I,JAQUELINE ELDA Annel understand my current condition and have read and understand these discharge instructions. I have received a written copy of the plan/instructions. If I have questions, I am aware that I should contact my doctor. Patient/Light Industrial Supervisor Signature: Date/Time: Relationship to Patient: Witness Name/Signature: Date/Time: [facility]04-15-2024 Note ORIGINAL EXAMINATION: ONE XRAY VIEW OF THE CHEST01/04/2024 3:42 pm COMPARISON: None. HISTORY: ORDERING SYSTEM PROVIDED HISTORY: Reason for Exam: chest pain FINDINGS: The cardiomediastinal contours are normal. Vascular structures appear within normal limits. There is no consolidation. No pleural fluid or pneumothorax. No aggressive osseous lesions identified. IMPRESSION: No acute radiographic findings. Interpreted by: Darren Santamaria MD Preliminary Report By: Darren Santamaria MD Electronically signed By Darren Santamaria MD Dictated Date: 01/04/2024 3:45:58 PM Prelim Date: 01/04/2024 3:46:21 PM Sign Date: 01/04/2024 3:46:21 PM Ordering Provider[facility] NoteSinus rhythm Borderline left axis deviation Electronic Signature: TYRELL NAILS MD 01/04/2024 15:34:03[facility] 07-22-2023 Note. MICRO - Microbiology PROCEDURE: Blood Culture (bacterial) [*1] SOURCE: Blood BODY SITE: COLLECTED DATE/TIME: 04/06/2023 17:57 EDT RECEIVED DATE/TIME: 04/06/2023 19:03 EDT START DATE/TIME: 04/06/2023 19:03 EDT FREE TEXT SOURCE: FINAL REPORTS Final Report [] Verified Date/Time/Personnel: 04/11/2023 19:59 EDT Blood Culture: No Growth at 5 days. PRELIMINARY REPORTS Preliminary Report [] Verified Date/Time/Personnel: 04/06/2023 19:59 EDT Culture has been received in lab and is no growth to date. Routine cultures are held for 5 days. Performing Locations *1: This test was performed at: [address]04-11-2023 Note. MICRO - Microbiology PROCEDURE: Blood Culture (bacterial) [*1] SOURCE: Blood BODY SITE: COLLECTED DATE/TIME: 04/06/2023 17:57 EDT RECEIVED DATE/TIME: 04/06/2023 19:03 EDT START DATE/TIME: 04/06/2023 19:03 EDT FREE TEXT SOURCE: FINAL REPORTS Final Report [] Verified Date/Time/Personnel: 04/11/2023 19:59 EDT Blood Culture: No Growth at 5 days. PRELIMINARY REPORTS Preliminary Report [] Verified Date/Time/Personnel: 04/06/2023 19:59 EDT Culture has been received in lab and is no growth to date. Routine cultures are held for 5 days. Performing Locations *1: This test was performed at: [address], [address] [place], [place] [address]604-06-2023 Hospital Discharge instructions Patient Education 04/06/2023 18:49:26 Cellulitis Skin Infection Cellulitis Cellulitis is an infection of the deep layers of skin. A break in the skin, such as a cut or scratch, can let bacteria under the skin. If the bacteria get to deep layers of the skin, it can be serious. If not treated, cellulitis can get into the bloodstream and lymph nodes. The infection can then spread throughout the body. This causes serious illness. Cellulitis causes the affected skin to become red, swollen, warm, and sore. The reddened areas havea visible border. An open sore may leak fluid (pus). You may have a fever, chills, and pain. Cellulitis is treated with antibiotics taken for 7 to 10 days. An open sore may be cleaned and covered with cool wet gauze. Symptoms should get better 1 to 2 days after treatment is started. Make sure to take all the antibiotics for the full number of days until they are gone. Keep taking the medicine even if your symptoms go away. Home care Follow these tips: Limit the use of the part of your body with cellulitis. If the infection is on your leg, keep your leg raised while sitting. This will help to reduce swelling. Take all of the antibiotic medicine exactly as directed until it is gone. Do not miss any doses, especially during the first 7 days. Don t stop taking the medicine when your symptoms get better. Keep the affected area clean and dry. Wash your hands with soap and warm water before and after touching your skin. Anyone else who touches your skin should also wash his or her hands. Don't share towels. Follow-up care Follow up with your healthcare provider, or as advised. If your infection does not go away on the first antibiotic, your healthcare provider will prescribe a different one. When to seek medical advice Call your healthcare provider right away if any of these occur: Red areas that spread Swelling or pain that gets worse Fluid leaking from the skin (pus) Fever higher of 100.4 F (38.0 C) or higher after 2 days on antibiotics [id number] [employer]. [address] [place] [address], [place] [address]. All rights reserved. This information is not intended as a substitute for professional medical care. Always follow yourhealthcare professional's instructions. 04/06/2023 18:49:19 Erythema Erythema Erythema means a reddening of the skin. If the condition is just in one area of your body, it can mean that you have inflammation, irritation, or infection of the skin. Erythema over a joint can be asign of joint infection. When erythema is spread over most of your body, like a rash, it is usuallya sign of a more general problem. This could be an allergic reaction, viral or bacterial infection,or an immune system disease. The cause of your condition is not clear. It may be hard to diagnose the exact cause of an illness in its early stages. More time may be needed before doctors can make a diagnosis. Home care Follow these guidelines when caring for yourself at home: Watch for any new symptoms. Tell your healthcare provider about any that show up. You may use acetaminophen or ibuprofen to control pain, unless another medicine was prescribed. If you have chronic liver or kidney disease, talk with your provider before using these medicines. Alsotalk with your provider if you ve had a stomach ulcer or gastrointestinal bleeding. Don t give aspirin to anyone under 18 years of age who is ill with a fever. Have anyone who touches your skin wash his or her hands with soap and water. Don t share towels or clothes. Keep the affected area clean and dry. Raising the affected area above the level of your heart may help ease swelling. Follow-up care Follow up with your healthcare provider, or as advised. When to seek medical advice Call your healthcare provider right away if any of these occur: The redness does not go away within 2 to 3 days Pain or redness that gets worse Fluid or pus drains from the reddened area New joint pain New rash Fever of 100.4 F (38 C) or higher, or as directed by your healthcare provider Severe headache, neck pain, drowsiness, or confusion Weakness, dizziness, repeated vomiting, or diarrhea [id number] [employer]. [address] [place] [address]. All rights reserved. This information is not intended as a substitute for professional medical care. Always follow yourhealthcare professional's instructions. Follow Up Care 04/06/2023 17:36:21 With:Call ARCENIO Banegas Pt. Refferral [phone] Address:Unknown When:2-4 days [facility] 07-17-2023 Note Discharge Instructions Thank you for allowing [facility] to assist you with your healthcare needs. The following is importantdischarge information regarding your hospital visit. Diagnosis from Today's Visit Skin rash What to Do Next Instructions from Your Care Team No qualifying data available. Post Acute Orders No qualifying data available. You Need to Schedule the Following Appointments Follow Up with Call [facility]B Bassam Pt. Refferral [phone] When Within 2-4 days Allergies [place] chicken Medications Please ask your primary doctor or pharmacist before taking any other medication not listed, including over the counter drugs, herbal medications, vitamins and or supplements as they may interact withyour home medications. What How Much When Instructions Last Dose New doxycycline (doxycycline hyclate 100 mg oral capsule) 1 cap by mouth Two (2) times a day Duration: 7 Days Printed Prescription New nystatin topical (nystatin 100,000 units/ g topical powder) 1 application Topical Two (2) times a day Duration: 7 Days Printed Prescription Unchanged dicyclomine (dicyclomine 10 mg oral capsule) 1 cap by mouth Four (4) times a day Duration: 7 Days Unchanged gabapentin (gabapentin 300 mg oral capsule) 1 cap by mouth Three (3) times a day Unchanged ondansetron (Zofran ODT 4 mg oral tablet, disintegrating) 1 tab(s) by mouth Every 6 hours Unchanged permethrin topical (permethrin 1% topical lotion) See instructions apply to skin and wash off in 15 minutes Please take this list to your next doctor s visit. Bring all medications you take, including over the counter medications, herbals and other supplements with you to your doctor s visit. Patients and families are reminded to discard old lists and to update any records with all medication providers or retail pharmacies. Medication Leaflets nystatin topical (rozina STAT in) Mycostatin Topical, Nyamyc, Nystop, Pediaderm AF, Pedi-Dri What is the most important information I should know about nystatin topical? Do not use nystatin topical to treat any skin condition that has not been checked by your doctor. Nystatin topical (for the skin) is not for use to treat a vaginal yeast infection. Avoid getting this medication in your eyes or mouth. If this does happen, rinse with water. Use this medication for the full prescribed length of time. Your symptoms may improve before the infection is completely cleared. Call your doctor if your symptoms do not improve, or if they get worse while using nystatin topical. Do not share this medication with another person, even if they have the same symptoms you have. What is nystatin topical? Nystatin is an antifungal medication. Nystatin prevents fungus from growing on your skin. Nystatin topical (for the skin) is used to treat skin infections caused by yeast. Nystatin topical is not for use to treat a vaginal yeast infection. Nystatin topical may also be used for purposes not listed in this medication guide. What should I discuss with my healthcare provider before using nystatin topical? You should not use nystatin topical if you have ever had an allergic reaction to it. FDA category C. It is not known whether nystatin topical will harm an unborn baby. Tell your doctor if you are or plan to become while using this medication. It is not known whether nystatin topical passes into breast milk or if it could harm a nursing baby. Do not use this medication without telling your doctor if you are breast-feeding a baby. How should I use nystatin topical? Use exactly as prescribed by your doctor. Do not use in larger or smaller amounts or for longer than recommended. Follow the directions on your prescription label. Do not use nystatin topical to treat any skin condition that has not been checked by your doctor. Wash your hands before and after using this medication. Clean and dry the skin before you apply nystatin topical. Do not cover treated skin with bandages or dressings that do not allow air circulation unless your doctor tells you to. Use this medication for the full prescribed length of time. Your symptoms may improve before the infection is completely cleared. Call your doctor if your symptoms do not improve, or if they get worse while using nystatin topical. Do not share this medication with another person, even if they have the same symptoms you have. Store at room temperature away from moisture and heat. What happens if I miss a dose? Use the missed dose as soon as you remember. Skip the missed dose if it is almost time for your next scheduled dose. Do not use extra medicine to make up the missed dose. What happens if I overdose? Seek emergency medical attention or call the Poison Help line at . What should I avoid while using nystatin topical? Avoid getting this medication in your eyes or mouth. If this does happen, rinse with water. Avoid wearing tight-fitting, synthetic clothing (such as nylon) that doesn't allow air circulation.Wear clothing made of loose cotton and other natural fibers until your infection is healed. What are the possible side effects of nystatin topical? Get emergency medical help if you have any of these signs of an allergic reaction: hives; difficulty breathing; swelling of your face, lips, tongue, or throat. Stop using nystatin topical and call your doctor at once if you have severe burning, itching, rash,pain, or other irritation where the medicine is applied. Less serious side effects may include mild itching or irritation. This is not a complete list of side effects and others may occur. Call your doctor for medical advice about side effects. You may report side effects to FDA at 5-141-TEK-9864. What other drugs will affect nystatin topical? It is not likely that other drugs you take orally or inject will have an effect on topically applied nystatin topical. But many drugs can interact with each other. Tell your doctor about all medications you use. This includes prescription, vmlf-ruy-[id number], vitamin, and herbal products. Do not start a new medication without telling your doctor. Where can I get more information? Your pharmacist can provide more information about nystatin topical. Remember, keep this and all other medicines out of the reach of children, never share your medicines with others, and use this medication only for the indication prescribed. Every effort has been made to ensure that the information provided by [employer]. ('[employer]') is accurate, up-to-date, and complete, but no guarantee is made to that effect. Drug information contained herein may be time sensitive. [employer] information has been compiled for use by healthcare practitioners and consumers in the [place] and therefore [employer] does not warrant that uses outside of the [place] are appropriate, unless specifically indicated otherwise. [employer]s drug information does not endorse drugs, diagnose patients or recommend therapy. [employer]s drug information isan informational resource designed to assist licensed healthcare practitioners in caring for their p atients and/or to serve consumers viewing this service as a supplement to, and not a substitute for, the expertise, skill, knowledge and judgment of healthcare practitioners. The absence of a warningfor a given drug or drug combination in no way should be construed to indicate that the drug or drug combination is safe, effective or appropriate for any given patient. [employer] does not assume any responsibility for any aspect of healthcare administered with the aid of information [employer] provides. The information contained herein is not intended to cover all possible uses, directions, precautions, warnings, drug interactions, allergic reactions, or adverse effects. If you have questions about the drugs you are taking, check with your doctor, nurse or pharmacist. Copyright 8091-4391 [employer]. Version: 7.02. Revision Date: 08/23/2013. doxycycline (oral/injection) (DOX karely madden) Acticlate, Adoxa, Alodox, Avidoxy, Doryx, Mondoxyne NL, Monodox, Morgidox, Okebo, Oracea, Oraxyl, Targadox, Vibramycin What is the most important information I should know about doxycycline? You should not take this medicine if you are allergic to any tetracycline antibiotic. Children younger than 8 years old should use doxycycline only in cases of severe or life-threatening conditions. This medicine can cause permanent yellowing or graying of the teeth in children Using doxycycline during could harm the unborn baby or cause permanent tooth discoloration later in the baby's life. What is doxycycline? Doxycycline is a tetracycline antibiotic that Doxycycline is used to treat many different bacterial infections, such as acne, urinary tract infections, intestinal infections, eye infections, gonorrhea, chlamydia, periodontitis (gum disease), andothers. Doxycycline is also used to treat blemishes, bumps, and acne-like lesions caused by rosacea. Doxycycline will not treat facial redness caused by rosacea. Some forms of doxycycline are used to prevent malaria, to treat anthrax, or to treat infections caused by mites, ticks, or lice. Doxycycline may also be used for purposes not listed in this medication guide. What should I discuss with my healthcare provider before taking doxycycline? You should not take this medicine if you are allergic to doxycycline or other tetracycline antibiotics such as demeclocycline, minocycline, tetracycline, or tigecycline. Tell your doctor if you have ever had: liver disease; kidney disease; asthma or sulfite allergy; increased pressure inside your skull; or if you also take isotretinoin, seizure medicine, or a blood thinner such as warfarin (Coumadin). If you are using doxycycline to treat gonorrhea, your doctor may test you to make sure you do not also have syphilis, another sexually transmitted disease. Taking this medicine during may affect tooth and bone development in the unborn baby. Taking doxycycline during the last half of can cause permanent tooth discoloration later in the baby's life. Tell your doctor if you are or if you become . Doxycycline can make control pills less effective. Ask your doctor about using a non-hormonalbirth control (condom, diaphragm with spermicide) to prevent . Doxycycline can pass into breast milk and may affect bone and tooth development in a nursing infant. Do not breastfeed while you are taking doxycycline. Doxycycline can cause permanent yellowing or graying of the teeth in children younger than 8 years old. Children should use doxycycline only in cases of severe or life-threatening conditions such as anthrax or [place] spotted fever. The benefit of treating a serious condition may outweigh any risks to the child's tooth development. How should I take doxycycline? Follow all directions on your prescription label and read all medication guides or instruction sheets. Use the medicine exactly as directed. Take doxycycline with a full glass of water. Drink plenty of liquids while you are taking doxycycline. Read and carefully follow any Instructions for Use provided with your medicine. Ask your doctor or pharmacist if you do not understand these instructions. Most brands of doxycyline may be taken with food or milk if the medicine upsets your stomach. Different brands of doxycycline may have different instructions about taking them with or without food. Take Oracea on an empty stomach, at least 1 hour before or 2 hours after a meal. You may need to split a doxycycline tablet to get the correct dose. Follow your doctor's instructions. Swallow a delayed-release capsule or tablet whole. Do not crush, chew, break, or open it. Measure liquid medicine with the dosing syringe provided, or with a special dose-measuring spoon ormedicine cup. If you do not have a dose-measuring device, ask your pharmacist for one. If you take doxycycline to prevent malaria: Start taking the medicine 1 or 2 days before entering an area where malaria is common. Continue taking the medicine every day during your stay and for at least 4 weeks after you leave the area. Doxycycline is usually given by injection only if you are unable to take the medicine by mouth. A healthcare provider will give you this injection as an infusion into a vein. Use this medicine for the full prescribed length of time, even if your symptoms quickly improve. Skipping doses can increase your risk of infection that is resistant to medication. Doxycycline will not treat a viral infection such as the flu or a common cold. Store at room temperature away from moisture, heat, and light. Throw away any unused medicine after the expiration date on the label has passed. Using doxycycline can cause damage to your kidneys. What happens if I miss a dose? Take the medicine as soon as you can, but skip the missed dose if it is almost time for your next dose. Do not take two doses at one time. What happens if I overdose? Seek emergency medical attention or call the Poison Help line at . What should I avoid while taking doxycycline? Do not take iron supplements, multivitamins, calcium supplements, antacids, or laxatives within 2 hours before or after taking doxycycline. Avoid taking any other antibiotics with doxycycline unless your doctor has told you to. Doxycycline could make you sunburn more easily. Avoid sunlight or tanning beds. Wear protective clothing and use sunscreen (SPF 30 or higher) when you are outdoors. Antibiotic medicines can cause diarrhea, which may be a sign of a new infection. If you have diarrhea that is watery or bloody, call your doctor. Do not use anti-diarrhea medicine unless your doctor tells you to. What are the possible side effects of doxycycline? Get emergency medical help if you have signs of an allergic reaction (hives, difficult breathing, swelling in your face or throat) or a severe skin reaction (fever, sore throat, burning in your eyes,skin pain, red or purple skin rash that spreads and causes blistering and peeling). Seek medical treatment if you have a serious drug reaction that can affect many parts of your body.Symptoms may include: skin rash, fever, swollen glands, flu- like symptoms, muscle aches, severe weakness, unusual bruising, or yellowing of your skin or eyes. This reaction may occur several weeks after you began using doxycycline. Call your doctor at once if you have: severe stomach pain, diarrhea that is watery or bloody; throat irritation, trouble swallowing; chest pain, irregular heart rhythm, feeling short of breath; little or no urination; low white blood cell counts--fever, chills, swollen glands, body aches, weakness, pale skin, easy bruising or bleeding; increased pressure inside the skull--severe headaches, ringing in your ears, dizziness, nausea, vision problems, pain behind your eyes; or signs of liver or pancreas problems--loss of appetite, upper stomach pain (that may spread to your back), tiredness, nausea or vomiting, fast heart rate, dark urine, jaundice (yellowing of the skin or eyes). Common side effects may include: nausea, vomiting, upset stomach, loss of appetite; mild diarrhea; skin rash or itching; darkened skin color; or vaginal itching or discharge. This is not a complete list of side effects and others may occur. Call your doctor for medical advice about side effects. You may report side effects to FDA at 4-642-CSR-4768. What other drugs will affect doxycycline? Sometimes it is not safe to use certain medications at the same time. Some drugs can affect your blood levels of other drugs you take, which may increase side effects or make the medications less effective. Other drugs may affect doxycycline, including prescription and eupw-rlj-wwvtrav medicines, vitamins, and herbal products. Tell your doctor about all your current medicines and any medicine you start or stop using. Where can I get more information? Your pharmacist can provide more information about doxycycline. Remember, keep this and all other medicines out of the reach of children, never share your medicines with others, and use this medication only for the indication prescribed. Every effort has been made to ensure that the information provided by [employer]. [employer]') is accurate, up-to-date, and complete, but no guarantee is made to that effect. Drug information contained herein may be time sensitive. [employer] information has been compiled for use by healthcare practitioners and consumers in the [place] and therefore [employer] does not warrant that uses outside of the [place] are appropriate, unless specifically indicated otherwise. [employer] drug information does not endorse drugs, diagnose patients or recommend therapy. [employer] drug information isan informational resource designed to assist licensed healthcare practitioners in caring for their p atients and/or to serve consumers viewing this service as a supplement to, and not a substitute for, the expertise, skill, knowledge and judgment of healthcare practitioners. The absence of a warningfor a given drug or drug combination in no way should be construed to indicate that the drug or drug combination is safe, effective or appropriate for any given patient. [employer] does not assume any responsibility for any aspect of healthcare administered with the aid of information [employer] provides. The information contained herein is not intended to cover all possible uses, directions, precautions, warnings, drug interactions, allergic reactions, or adverse effects. If you have questions about the drugs you are taking, check with your doctor, nurse or pharmacist. Copyright 9746-3814 [employer]. Version: 21.04. Revision Date: 07/25/2020. [employer] Cellulitis Cellulitis is an infection of the deep layers of skin. A break in the skin, such as a cut or scratch, can let bacteria under the skin. If the bacteria get to deep layers of the skin, it can be serious. If not treated, cellulitis can get into the bloodstream and lymph nodes. The infection can then spread throughout the body. This causes serious illness. Cellulitis causes the affected skin to become red, swollen, warm, and sore. The reddened areas havea visible border. An open sore may leak fluid (pus). You may have a fever, chills, and pain. Cellulitis is treated with antibiotics taken for 7 to 10 days. An open sore may be cleaned and covered with cool wet gauze. Symptoms should get better 1 to 2 days after treatment is started. Make sure to take all the antibiotics for the full number of days until they are gone. Keep taking the medicine even if your symptoms go away. Home care Follow these tips: Limit the use of the part of your body with cellulitis. If the infection is on your leg, keep your leg raised while sitting. This will help to reduce swelling. Take all of the antibiotic medicine exactly as directed until it is gone. Do not miss any doses, especially during the first 7 days. Don t stop taking the medicine when your symptoms get better. Keep the affected area clean and dry. Wash your hands with soap and warm water before and after touching your skin. Anyone else who touches your skin should also wash his or her hands. Don't share towels. Follow-up care Follow up with your healthcare provider, or as advised. If your infection does not go away on the first antibiotic, your healthcare provider will prescribe a different one. When to seek medical advice Call your healthcare provider right away if any of these occur: Red areas that spread Swelling or pain that gets worse Fluid leaking from the skin (pus) Fever higher of 100.4 F (38.0 C) or higher after 2 days on antibiotics 3948-6348 [employer]. [address] [place] [address], [place] [id number]. All rights reserved. This information is not intended as a substitute for professional medical care. Always follow yourhealthcare professional's instructions. Erythema Erythema means a reddening of the skin. If the condition is just in one area of your body, it can mean that you have inflammation, irritation, or infection of the skin. Erythema over a joint can be asign of joint infection. When erythema is spread over most of your body, like a rash, it is usuallya sign of a more general problem. This could be an allergic reaction, viral or bacterial infection,or an immune system disease. The cause of your condition is not clear. It may be hard to diagnose the exact cause of an illness in its early stages. More time may be needed before doctors can make a diagnosis. Home care Follow these guidelines when caring for yourself at home: Watch for any new symptoms. Tell your healthcare provider about any that show up. You may use acetaminophen or ibuprofen to control pain, unless another medicine was prescribed. If you have chronic liver or kidney disease, talk with your provider before using these medicines. Alsotalk with your provider if you ve had a stomach ulcer or gastrointestinal bleeding. Don t give aspirin to anyone under 18 years of age who is ill with a fever. Have anyone who touches your skin wash his or her hands with soap and water. Don t share towels or clothes. Keep the affected area clean and dry. Raising the affected area above the level of your heart may help ease swelling. Follow-up care Follow up with your healthcare provider, or as advised. When to seek medical advice Call your healthcare provider right away if any of these occur: The redness does not go away within 2 to 3 days Pain or redness that gets worse Fluid or pus drains from the reddened area New joint pain New rash Fever of 100.4 F (38 C) or higher, or as directed by your healthcare provider Severe headache, neck pain, drowsiness, or confusion Weakness, dizziness, repeated vomiting, or diarrhea [id number] [employer]. [address] [place] [address], [place] [address]. All rights reserved. This information is not intended as a substitute for professional medical care. Always follow yourhealthcare professional's instructions. Additional Information VACCINATE! IT SAVES LIVES! Members of the community who have not yet received the COVID-19 vaccine and would like to receive it can visit one of [facility] vaccine clinics. There are many vaccine clinic locations within the [facility]. For locations and available times, please visit [email or web address] It is important to note that some COVID mobile vaccine clinics are held outdoors and may be canceled in rainy or stormy conditions. To learn more about pediatric vaccinations (ages 5-11), we invite you to visit the [facility] webpage. [email or web address] learn more about the COVID-19 vaccine, we invite you to visit the CDC website for a list of frequently asked questions. https://www.cdc.gov/coronavirus/2019-ncov/vaccines/faq.html [facility] Patient Portal Access Instructions: Stay connected with your healthcare team and access your personal medical information anytime with the [facility] Patient Portal. If you would like a full copy of your medical records please contact the [facility] Medical Records Department Thursday through Thursday between 8a.m. and 4:30p.m. Please follow the directions below to access the portal: 1.Access the email account you provided upon registration to the hospital.2.Look for an invitation email from [facility].3.Open the email and access the invitation link: Accept Invitation to [facility].Fill in the required benson to create your account. Sign into [email or web address] with your username and password that you created in the above steps to stay up to date. You can then view a summary of results, a summary of your visits, and the ability to download your summaries to your computer or send the information securely to a physician. Remember that your healthcare information is confidential, so carefully consider who you will allow to register on the [facility] Patient Portal for access to your information. You can also access the [facility] Patient Portal on the in2apps. Simply click on Health Records under [employer] and then click on the [employer] logo. HOW TO SAFELY DISPOSE OF PRESCRIPTION MEDICATIONS Please use one of the following methods to safely dispose of your unused medications. 1.Use a drug disposal kit: the drug disposal pouch allows you to safely discard your old and unuseddrugs. Ask your nurse to give you one when you are discharged.2.Visit a local take-back location: Many local pharmacies and police departments have programs that collect old and unwanted prescriptiondrugs. Call your local pharmacy or go to http://Unidesk.Nidmi/3J7Zn1z to find one close to you.3.Make use of household items: Use cat litter or old coffee grounds to dispose medications if other options arenot available. Mix your drugs with these household products, seal them in an airtight container andthrow it into the garbage. Call [facility]: [phone] to be sure your drugs can be disposed of in this way. Some medicines may require a different approach.4.Never flush your medications down the toilet. IF YOU HAVE BEEN PRESCRIBED AN OPIOIDS FOR PAIN If you have been prescribed an opioid (such as hydrocodone, oxycodone or morphine), it is critical to understand the possible side effects and risks of opioid pain medications. Even when taken as directed, opioids can have several side effects including: Tolerance, meaning you might need to take more of a medication for the same pain relief. Nausea, vomiting and/or constipation. Sleepiness, dizziness, dry mouth, confusion, depression or itching. Physical dependence, meaning you have withdrawal symptoms when a medication is stopped ? this can develop within a few days. KNOW YOUR RESPONSIBILITIES It is important to know exactly how much and how often to take the opioid pain medications you are prescribed. Never take opioids in higher amounts or more often than prescribed. Do not combine opioids with alcohol or other drugs that cause drowsiness, such as benzodiazepines, also known as benzos,including diazepam and alprazolam, muscle relaxants or sleep aids. Never sell or share prescriptionopioids. This is illegal. Store opioids in a secure place and out of reach of others (including children, family, friends and visitors). The last page(s) of this document has been signed and retained as a CHART COPY Signatures Patient Education Materials Cellulitis Skin Infection Erythema Medication Leaflets nystatin topical, doxycycline (oral/injection) My discharge plan and instructions have been reviewed and explained to me and IJAQUELINE NICHOLAS J understand my current condition and have read and understand these discharge instructions. I have received a written copy of the plan/instructions. If I have questions, I am aware that I should contact my doctor. Patient/Light Industrial Supervisor Signature: Date/Time: Relationship to Patient: Witness Name/Signature: Date/Time: [facility]01-10-2023 Hospital Discharge instructions Patient Education 09/30/2022 11:46:35 Dental Pain Dental Pain A crack or cavity in a tooth can cause tooth pain. This is because the crack or cavity exposes the sensitive inner area of the tooth. An infection in the gum or the root of the tooth can cause pain and swelling. The pain is often made worse when you drink hot or cold beverages. It can also be worsewhen you bite on hard foods. Pain may spread from the tooth to your ear or the area of the jaw on the same side. Home care Follow these tips when caring for yourself at home: Don't have hot and cold foods and drinks. Your tooth may be sensitive to changes in temperature. Use toothpaste made for sensitive teeth. Luna gently up and down instead of sideways. Brushing sideways can wear away root surfaces if they are exposed. If your tooth is chipped or cracked, or if there is a large open cavity, put oil of cloves directlyon the tooth to relieve pain. You can buy oil of cloves at drugstores. Some pharmacies carry an vpyp-fcg-jqafdqe toothache kit. This contains a paste that you can put on the exposed tooth to make it less sensitive. Put a cold pack on your jaw over the sore area to help reduce pain. You may use rmew-bcm-jjtjxic medicine to ease pain, unless your doctor prescribed another medicine.If you have chronic liver or kidney disease, talk with your healthcare provider before using acetaminophen or ibuprofen. Also talk with your provider if you ve had a stomach ulcer or GI bleeding. If you have signs of an infection, you will be given an antibiotic. Take it as directed. Follow-up care Follow up with your dentist, or as advised. Your pain may go away with the treatment given today. But only a dentist can fully look at and treat the cause of your pain. This will keep the pain from coming back. Call 911 Call 911 if any of these occur: Unusual drowsiness Headache or stiff neck Weakness or fainting Difficulty swallowing or breathing When to seek medical advice Call your health care provider right away if any of these occur: Your face becomes swollen or red Pain gets worse or spreads to your neck Fever of 100.4 F (38.0 C) or higher, or as directed by your healthcare provider Pus drains from the tooth [phone] [employer]. [address] [place] [address]. All rights reserved. This information is not intended as a substitute for professional medical care. Always follow yourhealthcare professional's instructions. 09/30/2022 11:46:33 SINUSITIS, Abx Tx Sinusitis [Abx Tx] The sinuses are air-filled spaces within the bones of the face. They connect to the inside of the nose. Sinusitis is an inflammation of the tissue lining the sinus cavity. Sinus inflammation can occur during a cold or hay-fever (allergies to pollens and other particles in the air) and cause symptoms of sinus congestion and fullness. A sinus infection causes fever, headache and facial pain. There is usually green or yellow drainage from the nose or into the back of the throat (post-nasal drip). Antibiotics are prescribed to treat this condition. Home Care: Drink plenty of water, hot tea, and other liquids to stay well hydrated. This thins the mucus and promotes sinus drainage. Apply heat to the painful areas of the face. Use a towel soaked in hot water. Or, binder operator the shower and direct the hot spray onto your face. This is a good way to inhale warm water vapor and get heat on your face at the same time. (Cover your mouth and nose with your hands so you can still breathe as you do this.) Use a vaporizer with products such as [employer] VapoRub (contains menthol) at night. Suck on peppermint, menthol or eucalyptus hard candies during the day. An expectorant containing guaifenesin (such as Robitussin), helps to thin the mucus and promote drainage from the sinuses. Gdmm-dsj-vkifgqa decongestants may be used unless a similar medicine was prescribed. Nasal sprays work the fastest. Use one that contains phenylephrine (Edwin-synephrine, Sinex and others) or oxymetazoline (Afrin). First blow the nose gently to remove mucus, then apply the drops. Do not use these medicines more often than directed on the label or for more than three days or symptoms may worsen. Youmay also use tablets containing pseudoephedrine (Sudafed). Many sinus remedies combine ingredients,which may increase side effects. Read the labels or ask the pharmacist for help. NOTE: Persons withhigh blood pressure should not use decongestants. They can raise blood pressure. Antihistamines are useful if allergies are a cause of your sinusitis. The mildest one is chlorpheniramine (available without a prescription). The dose for adults is 8-12mg three times a day. [NOTE: Do not use chlorpheniramine if you have glaucoma or if you are a man with trouble urinating due to anenlarged prostate.] Claritin (loratidine) is an antihistamine that causes less drowsiness and is a good alternative for daytime use. Do not use nasal rinses or irrigation during an acute sinus infection, unless advised by your doctor. Rinsing may spread the infection to other sinuses. You may use acetaminophen (Tylenol) or ibuprofen (Motrin, Advil) to control pain, unless another pain medicine was prescribed. [ NOTE: If you have chronic liver or kidney disease or ever had a stomach ulcer, talk with your doctor before using these medicines.] (Aspirin should never be used in anyone under 18 years of age who is ill with a fever. It may cause severe liver damage.) Finish the full course, even if you are feeling better after a few days. Follow Up with your doctor or this facility in one week or as instructed by our staff if not improving. Get Prompt Medical Attention if any of the following occur: Facial pain or headache becomes more severe Stiff neck Unusual drowsiness or confusion, or not acting like your normal self Swelling of the forehead or eyelids Vision problems including blurred or double vision Fever of 100.4 F (38 C) or higher, or as directed by your healthcare provider Seizure [id number] [employer]. [address] [place] [address], [place] [address]. All rights reserved. This information is not intended as a substitute for professional medical care. Always follow yourhealthcare professional's instructions. Follow Up Care 09/30/2022 11:09:00 With:Dental Referral List Address:Unknown When:2-4 days With:NONE PHYSICIAN Address:Unknown When:2-4 days With:Go to emergency room if symptoms worsen Address:Unknown When:2-4 days With:Call Physician Referral Address:Unknown When:2-4 days [facility] 01-10-2023 Note Discharge Instructions Thank you for allowing [facility] to assist you with your healthcare needs. The following is importantdischarge information regarding your hospital visit. Diagnosis from Today's Visit Sinusitis Dentalgia Sinus Pain/Congestion What to Do Next Instructions from Your Care Team Take Augmentin for sinusitis and possible dental pain/possible dental infection. Follow-up with dentist. Follow-up with primary care doctor. Return emergency department if experience worsening symptoms or any other care concern. No qualifying data available. Post Acute Orders No qualifying data available. You Need to Schedule the Following Appointments Follow Up with Dental Referral List When Within 2-4 days Follow Up with NONE PHYSICIAN When Within 2-4 days Follow Up with Go to emergency room if symptoms worsen When Within 2-4 days Follow Up with Call Physician Referral When Within 2-4 days Allergies [place] chicken Medications Please ask your primary doctor or pharmacist before taking any other medication not listed, including over the counter drugs, herbal medications, vitamins and or supplements as they may interact withyour home medications. What How Much When Why Instructions Last Dose New amoxicillin-clavulanate (amoxicillin-clavulanate 875 mg-125 mg oral tablet) 1 tab(s) by mouth Every 12 hours Sinusitis Dentalgia Duration: 7 Days Printed Prescription Unchanged dicyclomine (dicyclomine 10 mg oral capsule) 1 cap by mouth Four (4) times a day Duration: 7 Days Unchanged gabapentin (gabapentin 300 mg oral capsule) 1 cap by mouth Three (3) times a day Unchanged ondansetron (Zofran ODT 4 mg oral tablet, disintegrating) 1 tab(s) by mouth Every 6 hours Unchanged permethrin topical (permethrin 1% topical lotion) See instructions apply to skin and wash off in 15 minutes Please take this list to your next doctor s visit. Bring all medications you take, including over the counter medications, herbals and other supplements with you to your doctor s visit. Patients and families are reminded to discard old lists and to update any records with all medication providers or retail pharmacies. Medication Leaflets amoxicillin and clavulanate potassium (am OK i PATRIZIA in KLAV ue GARRY ate sergey TAS ee um) Augmentin What is the most important information I should know about amoxicillin and clavulanate potassium? You should not use this medicine if you have severe kidney disease, if you have had liver problems or jaundice while taking amoxicillin and clavulanate potassium, or if you are allergic to any penicillin or cephalosporin antibiotic, such as Amoxil, Ceftin, Cefzil, Moxatag, Omnicef, and others. What is amoxicillin and clavulanate potassium? Amoxicillin is a penicillin antibiotic. Clavulanate potassium helps prevent certain bacteria from becoming resistant to amoxicillin. Amoxicillin and clavulanate potassium is a combination medicine used to treat many different infections caused by bacteria, such as sinusitis, pneumonia, ear infections, bronchitis, urinary tract infections, and infections of the skin. Amoxicillin and clavulanate potassium may also be used for purposes not listed in this medication guide. What should I discuss with my healthcare provider before taking amoxicillin and clavulanate potassium? You should not use this medicine if you are allergic to it, or if: you have severe kidney disease (or if you are on dialysis); you have had liver problems or jaundice while taking amoxicillin and clavulanate potassium; or you are allergic to any penicillin or cephalosporin antibiotic, such as Amoxil, Ceftin, Cefzil, Moxatag, Omnicef, and others. Tell your doctor if you have ever had: liver disease (hepatitis or jaundice); kidney disease; or mononucleosis. The liquid or chewable tablet may contain phenylalanine. Tell your doctor if you have phenylketonuria (PKU). Tell your doctor if you are or . Amoxicillin and clavulanate potassium can make control pills less effective. Ask your doctor about using a non-hormonal control (condom, diaphragm, cervical cap, or contraceptive sponge) to prevent . Do not give this medicine to a child without medical advice. How should I take amoxicillin and clavulanate potassium? Follow all directions on your prescription label and read all medication guides or instruction sheets. Use the medicine exactly as directed. Amoxicillin and clavulanate potassium may work best if you take it at the start of a meal. Take the medicine every 12 hours. Do not crush or chew the extended-release tablet. Swallow the pill whole, or break the pill in halfand take both halves one at a time. Tell your doctor if you have trouble swallowing a whole or halfpill. You must chew the chewable tablet before you swallow it. Shake the oral suspension (liquid) before you measure a dose. Use the dosing syringe provided, or use a medicine dose-measuring device (not a kitchen spoon). This medicine can affect the results of certain medical tests. Tell any doctor who treats you that you are using amoxicillin and clavulanate potassium. Use this medicine for the full prescribed length of time, even if your symptoms quickly improve. Skipping doses can increase your risk of infection that is resistant to medication. Amoxicillin and clavulanate potassium will not treat a viral infection such as the flu or a common cold. Store the tablets at room temperature away from moisture and heat. Store the liquid in the refrigerator. Throw away any unused liquid after 10 days. What happens if I miss a dose? Take the medicine as soon as you can, but skip the missed dose if it is almost time for your next dose. Do not take two doses at one time. What happens if I overdose? Seek emergency medical attention or call the Poison Help line at . Overdose can cause nausea, vomiting, stomach pain, diarrhea, skin rash, drowsiness, hyperactivity, and decreased urination. What should I avoid while taking amoxicillin and clavulanate potassium? Avoid taking this medicine together with or just after eating a high-fat meal. This will make it harder for your body to absorb the medication. Antibiotic medicines can cause diarrhea, which may be a sign of a new infection. If you have diarrhea that is watery or bloody, call your doctor before using anti-diarrhea medicine. What are the possible side effects of amoxicillin and clavulanate potassium? Get emergency medical help if you have signs of an allergic reaction (hives, difficult breathing, swelling in your face or throat) or a severe skin reaction (fever, sore throat, burning eyes, skin pain, red or purple skin rash with blistering and peeling). Stop using amoxicillin and clavulanate potassium and seek medical treatment if you have a serious drug reaction that can affect many parts of your body. Symptoms may include skin rash, fever, swollenglands, muscle aches, severe weakness, unusual bruising, or yellowing of your skin or eyes. Call your doctor at once if you have: severe stomach pain, diarrhea that is watery or bloody (even if it occurs months after your last dose); pale or yellowed skin, dark colored urine, fever, confusion or weakness; loss of appetite, upper stomach pain; little or no urination; or easy bruising or bleeding. Common side effects may include: nausea, vomiting; diarrhea; rash, itching; vaginal itching or discharge; or diaper rash. This is not a complete list of side effects and others may occur. Call your doctor for medical advice about side effects. You may report side effects to FDA at 1-989-VUW-7271. What other drugs will affect amoxicillin and clavulanate potassium? Tell your doctor about all your other medicines, especially: allopurinol; probenecid; or a blood thinner--warfarin, Coumadin, Jantoven. This list is not complete. Other drugs may affect amoxicillin and clavulanate potassium, including prescription and plui-skk-pxzhezl medicines, vitamins, and herbal products. Not all possible drug interactions are listed here. Where can I get more information? Your doctor or pharmacist can provide more information about amoxicillin and clavulanate potassium. Remember, keep this and all other medicines out of the reach of children, never share your medicines with others, and use this medication only for the indication prescribed. Every effort has been made to ensure that the information provided by [employer]. ('[employer]') is accurate, up-to-date, and complete, but no guarantee is made to that effect. Drug information contained herein may be time sensitive. [employer] information has been compiled for use by healthcare practitioners and consumers in the [place] and therefore [employer] does not warrant that uses outside of the [place] are appropriate, unless specifically indicated otherwise. [employer]'s drug information does not endorse drugs, diagnose patients or recommend therapy. [facility] drug information isan informational resource designed to assist licensed healthcare practitioners in caring for their p atients and/or to serve consumers viewing this service as a supplement to, and not a substitute for, the expertise, skill, knowledge and judgment of healthcare practitioners. The absence of a warningfor a given drug or drug combination in no way should be construed to indicate that the drug or drug combination is safe, effective or appropriate for any given patient. [facility] does not assume any responsibility for any aspect of healthcare administered with the aid of information [facility] provides. The information contained herein is not intended to cover all possible uses, directions, precautions, warnings, drug interactions, allergic reactions, or adverse effects. If you have questions about the drugs you are taking, check with your doctor, nurse or pharmacist. Copyright 5948-1257 [email or web address]. Version: 14.01. Revision Date: 06/27/2022. Education Materials Dental Pain A crack or cavity in a tooth can cause tooth pain. This is because the crack or cavity exposes the sensitive inner area of the tooth. An infection in the gum or the root of the tooth can cause pain and swelling. The pain is often made worse when you drink hot or cold beverages. It can also be worsewhen you bite on hard foods. Pain may spread from the tooth to your ear or the area of the jaw on the same side. Home care Follow these tips when caring for yourself at home: Don't have hot and cold foods and drinks. Your tooth may be sensitive to changes in temperature. Use toothpaste made for sensitive teeth. Luna gently up and down instead of sideways. Brushing sideways can wear away root surfaces if they are exposed. If your tooth is chipped or cracked, or if there is a large open cavity, put oil of cloves directlyon the tooth to relieve pain. You can buy oil of cloves at drugstores. Some pharmacies carry an ktjv-nve-himyflq toothache kit. This contains a paste that you can put on the exposed tooth to make it less sensitive. Put a cold pack on your jaw over the sore area to help reduce pain. You may use wkza-kcv-jmttdrb medicine to ease pain, unless your doctor prescribed another medicine.If you have chronic liver or kidney disease, talk with your healthcare provider before using acetaminophen or ibuprofen. Also talk with your provider if you ve had a stomach ulcer or GI bleeding. If you have signs of an infection, you will be given an antibiotic. Take it as directed. Follow-up care Follow up with your dentist, or as advised. Your pain may go away with the treatment given today. But only a dentist can fully look at and treat the cause of your pain. This will keep the pain from coming back. Call 911 Call 911 if any of these occur: Unusual drowsiness Headache or stiff neck Weakness or fainting Difficulty swallowing or breathing When to seek medical advice Call your health care provider right away if any of these occur: Your face becomes swollen or red Pain gets worse or spreads to your neck Fever of 100.4 F (38.0 C) or higher, or as directed by your healthcare provider Pus drains from the tooth [id number] [employer]. [address] [place] [address]. All rights reserved. This information is not intended as a substitute for professional medical care. Always follow yourhealthcare professional's instructions. Sinusitis [Abx Tx] The sinuses are air-filled spaces within the bones of the face. They connect to the inside of the nose. Sinusitis is an inflammation of the tissue lining the sinus cavity. Sinus inflammation can occur during a cold or hay-fever (allergies to pollens and other particles in the air) and cause symptoms of sinus congestion and fullness. A sinus infection causes fever, headache and facial pain. There is usually green or yellow drainage from the nose or into the back of the throat (post-nasal drip). Antibiotics are prescribed to treat this condition. Home Care: Drink plenty of water, hot tea, and other liquids to stay well hydrated. This thins the mucus and promotes sinus drainage. Apply heat to the painful areas of the face. Use a towel soaked in hot water. Or, binder operator the shower and direct the hot spray onto your face. This is a good way to inhale warm water vapor and get heat on your face at the same time. (Cover your mouth and nose with your hands so you can still breathe as you do this.) Use a vaporizer with products such as [employer] VapoRub (contains menthol) at night. Suck on peppermint, menthol or eucalyptus hard candies during the day. An expectorant containing guaifenesin (such as Robitussin), helps to thin the mucus and promote drainage from the sinuses. Qtst-oee-vankgvi decongestants may be used unless a similar medicine was prescribed. Nasal sprays work the fastest. Use one that contains phenylephrine (Edwin-synephrine, Sinex and others) or oxymetazoline (Afrin). First blow the nose gently to remove mucus, then apply the drops. Do not use these medicines more often than directed on the label or for more than three days or symptoms may worsen. Youmay also use tablets containing pseudoephedrine (Sudafed). Many sinus remedies combine ingredients,which may increase side effects. Read the labels or ask the pharmacist for help. NOTE: Persons withhigh blood pressure should not use decongestants. They can raise blood pressure. Antihistamines are useful if allergies are a cause of your sinusitis. The mildest one is chlorpheniramine (available without a prescription). The dose for adults is 8-12mg three times a day. [NOTE: Do not use chlorpheniramine if you have glaucoma or if you are a man with trouble urinating due to anenlarged prostate.] Claritin (loratidine) is an antihistamine that causes less drowsiness and is a good alternative for daytime use. Do not use nasal rinses or irrigation during an acute sinus infection, unless advised by your doctor. Rinsing may spread the infection to other sinuses. You may use acetaminophen (Tylenol) or ibuprofen (Motrin, Advil) to control pain, unless another pain medicine was prescribed. [ NOTE: If you have chronic liver or kidney disease or ever had a stomach ulcer, talk with your doctor before using these medicines.] (Aspirin should never be used in anyone under 18 years of age who is ill with a fever. It may cause severe liver damage.) Finish the full course, even if you are feeling better after a few days. Follow Up with your doctor or this facility in one week or as instructed by our staff if not improving. Get Prompt Medical Attention if any of the following occur: Facial pain or headache becomes more severe Stiff neck Unusual drowsiness or confusion, or not acting like your normal self Swelling of the forehead or eyelids Vision problems including blurred or double vision Fever of 100.4 F (38 C) or higher, or as directed by your healthcare provider Seizure [phone] [employer]. [address] [place] [address], [place] [address]. All rights reserved. This information is not intended as a substitute for professional medical care. Always follow yourhealthcare professional's instructions. Additional Information VACCINATE! IT SAVES LIVES! Members of the community who have not yet received the COVID-19 vaccine and would like to receive it can visit one of [facility] vaccine clinics. There are many vaccine clinic locations within the [facility]. For locations and available times, please visit [email or web address]. It is important to note that some COVID mobile vaccine clinics are held outdoors and may be canceled in rainy orstormy conditions. To learn more about pediatric vaccinations (ages 5-11), we invite you to visit the [facility] webpage. [email or web address] [email or web address].htmlTo learn more about the COVID-19 vaccine, we invite you to visit the [employer] website for a list of frequently asked questions. [email or web address] [facility] Patient Portal Access Instructions: Stay connected with your healthcare team and access your personal medical information anytime with the [facility] Patient Portal. If you would like a full copy of your medical records please contact the [facility] Medical Records Department Thursday through Thursday between 8a.m. and 4:30p.m. Please follow the directions below to access the portal: 1.Access the email account you provided upon registration to the [facility].2.Look for an invitation email from [facility].3.Open the email and access the invitation link: Accept Invitation to [facility].Fill in the required benson to create your account. Sign into [email or web address] with your username and password that you created in the above steps to stay up to date. You can then view a summary of results, a summary of your visits, and the ability to download your summaries to your computer or send the information securely to a physician. Remember that your healthcare information is confidential, so carefully consider who you will allow to register on the [facility] Patient Portal for access to your information. You can also access the [facility] Patient Portal on the [employer] ulisses. Simply click on Health Records under [employer] and then click on the [employer] logo. HOW TO SAFELY DISPOSE OF PRESCRIPTION MEDICATIONS Please use one of the following methods to safely dispose of your unused medications. 1.Use a drug disposal kit: the drug disposal pouch allows you to safely discard your old and unuseddrugs. Ask your nurse to give you one when you are discharged.2.Visit a local take-back location: Many local pharmacies and police departments have programs that collect old and unwanted prescriptiondrugs. Call your local pharmacy or go to http://Unidesk.Nidmi/8Z6Yg9j to find one close to you.3.Make use of household items: Use cat litter or old coffee grounds to dispose medications if other options arenot available. Mix your drugs with these household products, seal them in an airtight container andthrow it into the garbage. Call [facility]: [phone] to be sure your drugs can be disposed of in this way. Some medicines may require a different approach.4.Never flush your medications down the toilet. IF YOU HAVE BEEN PRESCRIBED AN OPIOIDS FOR PAIN If you have been prescribed an opioid (such as hydrocodone, oxycodone or morphine), it is critical to understand the possible side effects and risks of opioid pain medications. Even when taken as directed, opioids can have several side effects including: Tolerance, meaning you might need to take more of a medication for the same pain relief. Nausea, vomiting and/or constipation. Sleepiness, dizziness, dry mouth, confusion, depression or itching. Physical dependence, meaning you have withdrawal symptoms when a medication is stopped ? this can develop within a few days. KNOW YOUR RESPONSIBILITIES It is important to know exactly how much and how often to take the opioid pain medications you are prescribed. Never take opioids in higher amounts or more often than prescribed. Do not combine opioids with alcohol or other drugs that cause drowsiness, such as benzodiazepines, also known as benzos,including diazepam and alprazolam, muscle relaxants or sleep aids. Never sell or share prescriptionopioids. This is illegal. Store opioids in a secure place and out of reach of others (including children, family, friends and visitors). The last page(s) of this document has been signed and retained as a CHART COPY Signatures Patient Education Materials Dental Pain SINUSITIS, Abx Tx Medication Leaflets amoxicillin and clavulanate potassium My discharge plan and instructions have been reviewed and explained to me and I,ELDA PARSONS understand my current condition and have read and understand these discharge instructions. I have received a written copy of the plan/instructions. If I have questions, I am aware that I should contact my doctor. Patient/Light Industrial Supervisor Signature: Date/Time: Relationship to Patient: Witness Name/Signature: [facility] No data available for this section [facility] + Plan note Future Appointments Appointment Date:06/12/2025 03:00:00 PM Scheduled Provider:KANWAL COKER MD Location:[facility] Appointment Type: OV Follow Up Future Scheduled Tests Laboratory* Thyroid Stimulating Hormone 01/26/25 * Complete Blood Count 01/26/25 * Complete Metabolic Panel 01/26/25 [facility] Evaluation + Plan note Future Appointments Appointment Date:08/14/2025 04:00:00 PM Scheduled Provider:KANWAL COKER MD Location:[facility] Appointment Type: OV Follow Up Future Scheduled Tests Laboratory* Thyroid Stimulating Hormone 01/26/25 * Complete Blood Count 01/26/25 * Complete Metabolic Panel 01/26/25 [facility] Evaluation + Plan note Future Appointments Appointment Date:06/12/2025 03:00:00 PM Scheduled Provider:KANWAL COKER MD Location:[facility] Appointment Type:PC OV Follow Up Future Scheduled Tests Laboratory* Thyroid Stimulating Hormone 01/26/25 * Complete Blood Count 01/26/25 * Complete Metabolic Panel 01/26/25 Radiology* US Abdomen Complete 06/09/25 [facility] Hospital Discharge instructions No data available for this section [facility] Progress note No data available for this section [facility] Summary Purpose Family History No Family History Records Found No data available for this section No Family History Records FoundNo Family History Records FoundNo Family History Records Found No data available for this section No Family History Records Found No data available for this section No data available for this section No Family History Records Found No data available for this section Advance Directives No Advanced Directives Records FoundNo Advanced Directives Records FoundNo Advanced Directives Records FoundNo Advanced Directives Records FoundNo Advanced Directives Records FoundNo Advanced Directives Records Found Additional Source Comments (unrecognized sect ion and content) No Status Records FoundNo Status Records FoundNo Status Records FoundNo Status Records FoundNo Status Records FoundNo Status Records Found INFORMATION SOURCE (unrecogn ized section and content) DATE CREATED AUTHOR 08/04/2019 [facility] Joleen Mustafa DATE CREATED AUTHOR AUTHOR'S ORGANIZ ATION 01/09/2024 [facility] ([place] DATE CREATED AUTHOR AUTHOR'S ORGANIZ ATION 04/11/2024 [facility] DATE CREATED AUTHOR AUTHOR'S ORGANIZ ATION 08/05/2024 [facility] DATE CREATED AUTHOR AUTHOR'S ORGANIZ ATION 03/17/2025 [facility] DATE CREATED AUTHOR AUTHOR'S ORGANIZ ATION 06/28/2025 [facility] Care Team (unrecognized sect ion and content) Care Team Personnel Name: PHYSICIAN, NONE Position: Physician Member Role: Primary Care Physician Name: ANGELA PATRICIA DO Position: ED Physician Member Role: Attending Physician Address: Address: [address] [place], [place] [address] [address]- Name: Christiane Agudelo RN Position: AO RN Member Role: RN Care Team Related Persons Name: LULU PARSONS Name: PIERRE THOMAS Patient Care team informatio n (unrecognized section and content) Care Team Personnel Name: PHYSICIAN, NONE Position: Physician Member Role: Primary Care Physician Name: NIKOS MACK DO Position: ED Physician Member Role: ED Physician Address: Address: [address] [place] [address] [facility] [address] Name: KANNAN Mckeon Position: AO RN Member Role: RN Care Team Related Persons Name: LULU PARSONS Name: PIERRE THOMAS Care Team Personnel Name: MACO LEWIS MD Position: P4 Physician - Primary Care Member Role: Primary Care Physician Address: Address: [address] [place] [address] Care Team Related Persons Name: LLUU PARSONS Name: PIERRE THOMAS Care Team Personnel Name: MACO LEWIS MD Position: P4 Physician - Primary Care Member Role: Primary Care Physician Address: Address: [address] [place] [address] Care Team Related Persons Name: LULU PARSONS Name: PIERRE THOMAS Care Team Personnel Name: KANWAL COKER MD Position: P4 Physician - Primary Care Member Role: Primary Care Physician Address: [address] [place] [address] Telecom: Care Team Related Persons Name: LULU PARSONS Name: PIERRE THOMAS Care Team Personnel Name: KANWAL COKER MD Position: P4 Physician - Primary Care Member Role: Primary Care Physician Address: [address] [place] [address] Telecom: Care Team Related Persons Name: LULU PARSONS Name: PIERRE THOMAS Care Team Personnel Name: KANWAL COKER MD Position: P4 Physician - Primary Care Member Role: Primary Care Physician Address: [address] [place] [address] Telecom: Care Team Related Persons Name: LULU PARSONS Name: MARTHAPIERRE Source Comments (unrecognize d section and content) In the event this informatio n is protected by the Federal Confidentiality of Alcohol and Drug Abuse Patient Records regulations: The Federal rules restrict any use of the information to criminally investigate or prosecute any alcohol or drug abuse patient.[facility] Reason for Visit (unrecogniz ed section and content) Reason Onset Date Comments [facility] Hepatology - Follow-up 04/07/2024 HCV + result FOR RECORDS PERTAINING TO PATIENTS WHO ARE OR HAVE BEEN ENROLLED IN A CHEMICAL DEPENDENCY/SUBSTANCEABUSE PROGRAM, SOME INFORMATION MAY BE OMITTED. This clinical summary was aggregated from multiple sources. Caution should be exercised in using it in the provision of clinical care. This summary normalizes information from multiple sources, and as a consequence, information in this document may materially change the coding, format and clinical context of patient data. In addition, data may be omitted in some cases. CLINICAL DECISIONS SHOULD BE BASED ON THE PRIMARY CLINICAL RECORDS. [employer] provides no warranty or guarantee of the accuracy or completeness of information in this document.
[2025-09-12 08:08] LABS: HCV Quant. RNA PCR 2340000 IU/mL (.)
== END | disposition home or self-care (01) ==
LOC: MTLAB 15:53
PROVIDERS: PCP Internal Medicine; Referring Provider Internal Medicine Gastroenterology; Visit Provider Internal Medicine Gastroenterology
DX: B19.20 Unspecified viral hepatitis C without hepatic coma (principal)
CPT/HCPCS: 36415; 87522; 87902